=== PATIENT | male | born 1955 | race Caucasian/White ===

== ENCOUNTER 2016-05-06 20:30 | Inpatient (IN) | payer OTHER, MEDICAID ==
[2016-05-06] MEDS ORDERED: NS 500 ML IV ONE (20:43)
[2016-05-06] MEDS ORDERED: cefTRIAXone 2 GM in D5W 50 ML IV ONE (21:10)
[2016-05-06] MEDS ORDERED: AZITHROMYCIN IV 500 MG in D5W 250 ML IV ONE (21:10)
[2016-05-06 21:12] LABS: ADD DIFF? NO; ADD MORPH? NO; ADD SCAN? NO; ATYPICAL LYMPHOCYTE FLAG 0 (0-99); FRAGMENT RBC FLAG 0 (0-99); HEMATOCRIT 49.5 % (40.0-51.0); HEMOGLOBIN 16.3 g/dL (13.7-17.5); LEFT SHIFT FLG 20 (0-99); LIPEMIA HEMOLYSIS FLAG 80 (0-99); MEAN CELL HEMOGLOBIN 27.2 pg (27.9-34.1); MEAN CELL HEMOGLOBIN CONCENTR. 32.9 g/dL (32.4-36.7); MEAN CELL VOLUME 82.5 fL (81.5-99.8); MEAN PLATELET VOLUME 10.8 fL (8.7-11.7); PLATELET CLUMPS FLAG 10 (0-99); PLATELET COUNT 221 10^3/uL (150-400); RED CELL DISTRIBUTION WIDTH 15.4 % (11.5-15.2)
[2016-05-06] MEDS ORDERED: VANCOMYCIN 1.5 GM in D5W 250 ML IV ONE (21:15)
[2016-05-06] MEDS ORDERED: CEFEPIME HCL 2 GM in D5W 100 ML IV ONE (21:15)
[2016-05-06] MEDS ORDERED: NS 1,000 ML BAG *FOR SEPSIS ORDER SET ONLY IV ONE (21:17)
[2016-05-06] MEDS ORDERED: ACETAMINOPHEN 500 MG TAB PO ONE (21:22)
--- NOTE | 2016-05-06 21:25 | DX ---
PA and lateral chest. May 06, 2016. Clinical History: Possible pneumonia. Difficulty breathing. Comparison Study: April 15, 2015.. Findings: The lungs are clear. No pleural disease identified. Heart size is normal. The lateral radiograph is technically limited secondary to patient motion blurring.. Impression: Negative chest x-ray..
[2016-05-06] MEDS ORDERED: IPRATROPIUM/ALBUTEROL 3 ML DEYVIAL ONE (21:26)
[2016-05-06] MEDS ORDERED: IPRATROPIUM/ALBUTEROL 3 ML DEYVIAL IH ONE ×2 (21:27→21:31)
--- NOTE | 2016-05-06 21:27 | EDPHY ---
H & P Time Seen by Provider: 05/06/16 20:42 HPI/ROS: HPI Fever, cough. 61-year-old male by ambulance from [facility]. This patient presents with complaint of rapid breathing, worsening cough and fever. The patient was admitted to our hospital on April 13 through April 16 with the same symptoms and with a primary final diagnosis of severe sepsis but no obvious infectious source. He was treated with meropenem and vancomycin at that time. He reports that his cough has continued but over the last 24-48 hours it has worsened significantly and he has developed a high fever as well. ROS: Constitutional: As above. Eyes: No discharge. No changes in vision. ENT: No sore throat. No nasal congestion or rhinorrhea. Respiratory: As above. Cardiac: No chest pain, no palpitations. Gastrointestinal: No abdominal pain, no vomiting, no diarrhea. Genitourinary: No hematuria. No dysuria or increased frequency with urination. Musculoskeletal: No back pain. No neck pain. No myalgias or arthralgias. Skin: No rashes. Neurological: No headache. No new focal weakness or altered sensation. Past medical history: Traumatic brain injury with seizure, chronic hypoxemic respiratory failure on oxygen 3-4 L nasal cannula 02/11, COPD, coronary artery disease, CHF, DVT and PE, diabetes, recurrent aspiration pneumonias. Social history: From [facility]. As above. Physical Exam: General Appearance: Alert, tachypneic, wet cough. This patient is responding to questions short sentences. This patient appears well-hydrated and well- nourished. Eyes: Pupils equal and round no pallor or injection. No lid edema, erythema or injection. ENT, Mouth: Mucous membranes are moist. The pharyngeal tissues are unremarkable. No edema or swelling. No asymmetry suggestive of abscess. No erythema or exudates. Respiratory: There are no retractions, diffuse wheezing and rhonchi throughout , tachypnea. Cardiovascular: Regular rate and rhythm. Tachycardia. No murmur appreciated. Gastrointestinal: Abdomen is soft and nontender, no masses, bowel sounds normal. No focal tenderness at McBurney's point. No Squires sign. Neurological: Motor sensory function is grossly intact. Cranial nerves are normal. Skin: Warm and dry. Patient has erythema with warmth medial and proximal posterior left thigh which tracks up into the gluteal fold. He has got a small amount of skin breakdown medial aspect of mid gluteal fold. No crepitus. No gangrene. Musculoskeletal: Neck is supple and nontender. No pain on flexion of the neck. Extremities are symmetrical. Trace symmetrical lower extremity edema. All joints range without pain or impingement. Psychiatric: No agitation. No depression. Database: EKG: EKG time is 11:11 p.m.; EKG shows a narrow complex normal sinus sinus tachycardia ventricular rate of 120. PVC noted. The IL, QRS, QT intervals are within normal limits. Nonspecific T-wave abnormalities noted. There are no ST-T wave changes indicative of ischemic or injury pattern. No evidence of right heart strain. Interpreted by me. Imaging: Chest x-ray PA and lateral; the cardiac mediastinal silhouette is unremarkable. No evidence of infiltrate or pneumothorax. No acute cardiopulmonary disease process noted. Interpreted by me. Chest x-ray AP portable; right internal jugular vein central line appropriately placed. No pneumothorax. As above. Procedures: Ultrasound guidance: Using the linear probe covered in a sterile sheath, a short axis of the vein was obtained. The vein was completely compressible and was identified as separate from the adjacent non-compressible arterial structure. Under real-time guidance, the introducer needle was observed up to the vein, and then punctured it. These images were saved on the database. Central line placement: The indication for the procedure was septic shock. After verbal informed consent from patient; the risks were explained including bleeding, infection, and collapsed lung. Maximal sterile barrier technique was uses including cap, gown, sterile gloves, large sheet, hand washing and chlorhexidine prep. The area anesthetized with 1% lidocaine. The right internal jugular vein was punctured with a 19 gauge finder needle, then a wire introducer was placed, a standard triple-lumen central line was placed using Seldinger technique. There were no complications. Blood return low pressure, dark blood. The patient tolerated procedure well. CXR results: As above, interpreted by myself. Radiologist interpretation is pending. The procedure was performed by myself. Emergency department course: IV placed x2, patient started on IV normal saline with 1 L initially to be given over the 1st hour. Chest x-ray and appropriate blood work cultures and urine obtained. Patient started on albuterol/Atrovent nebulizer treatments. He was given 1 g of oral Tylenol and 125 mg of IV Solu-Medrol initially. After initial review of blood work, severe sepsis and septic shock declared as noted. Sepsis protocol initiated. Reviewed antibiotics from last admission with hospitalist, Dr. Jeffery Adhikari. Patient given IV cefepime and IV vancomycin in the emergency department for broad-spectrum antibiotic coverage of possible pathogens associated with pneumonia and cellulitis. Despite IV fluids patient has remained tachycardic in the 130s. However his blood pressure is high remained normal to mildly hypertensive. 10:20 p.m., patient re-evaluated. Patient remains tachycardic in the mid 130s. Blood pressures remain in the mid 130s over 80s. 10:25 p.m., discussed case with hospitalist, Dr. Tosha Sood. She is familiar with this patient from his previous admission. She has accepted the patient for admission to the step-down unit. She will repeat basic metabolic panel after IV fluids to assess potassium and treat as needed. IV antibiotics as above were discussed with her. She is in agreement. 11 PM, on Dr. Sood's exam patient's blood pressure has decreased into the 80s over 60s. She discussed central line placement with me. Central line placed as above. Aggressive resuscitation continued. 12 AM, patient looks better, tachycardia decreased to 110, blood pressure 108/ 72. Patient admitted to the ICU under the care of Dr. Sood in stable and improved condition. Differential Diagnosis: The differential diagnosis on this patient includes but is not limited to cellulitis, septic shock, pneumonia, bronchitis, influenza, COPD exacerbation. This represents a partial list of diagnoses considered. These considerations are based on history, physical exam, past history, reassessment and diagnostic testing. Smoking Status: Light smoker Constitutional: Initial Vital Signs Temperature (C) 39.5 C H 05/06/16 20:39 Heart Rate 138 H 05/06/16 20:39 Respiratory Rate 28 H 05/06/16 20:39 Blood Pressure 135/87 H 05/06/16 20:39 O2 Sat (%) 88 L 05/06/16 20:39 O2 Delivery Mode Oxymizer O2 (L/minute) 6 Allergies/Adverse Reactions: levofloxacin [From Levaquin] Allergy (Verified 03/05/15 16:09) Other-Enter Comments penicillin Allergy (Verified 03/08/15 12:08) Home Medications: Medication Instructions Recorded Acetaminophen [Tylenol 325mg (*)] 650 mg PO Q6 PRN 11/25/14 Atorvastatin Calcium 10 mg PO HS 11/25/14 Gabapentin [Neurontin 300 MG (*)] 300 mg PO TID@08,12,18 11/25/14 Herbals/Supplements -Info Only 1 ea PO BID 11/25/14 Magnesium Hydroxide [Milk of 30 ml PO DAILY PRN 11/25/14 Magnesia (*)] [place]-3 Fatty Acids/Fish Oil [Fish 1 cap PO DAILY 11/25/14 Oil 1,000 mg Capsule] Sennosides/Docusate Sodium 1 each PO BID 11/25/14 [Senna-Docusate Sodium Tablet] Warfarin Sodium [Coumadin 5MG (*)] 12.5 mg PO HS 11/25/14 glipiZIDE XL [Glucotrol XL 10 MG 10 mg PO DAILY 11/25/14 (*)] metFORMIN HCL [Glucophage 500 mg 500 mg PO BIDMEAL 11/25/14 (*)] Aspirin EC [Aspirin EC 81 mg (*)] 81 mg PO DAILY #30 tab 12/07/14 Ticagrelor [Brilinta] 90 mg PO BID #60 tablet 12/07/14 Albuterol [Proventil Neb] 3 ml IH Q4 PRN 01/08/15 Lorazepam [Lorazepam Intensol] 0.5 mg PO Q6 PRN 01/08/15 Metoprolol Succinate Xr [Toprol Xl 25 mg PO DAILY 01/08/15 25 mg (*)] Trolamine Salicylate/Aloe Vera 1 yanick TP QID 01/08/15 [Aspercreme 10% Cream] glipiZIDE XL [Glucotrol Xl] 5 mg PO DAILY 01/08/15 Insulin Glargine [Lantus 100 10 units SC DAILY 30 Days 01/20/15 UNITS/ML (*)] OXcarbazepine [Trileptal 300mg (*)] 600 mg PO BID #0 tab 01/20/15 Psyllium Seed [Metamucil (*)] 1 each PO DAILY 30 Days 01/20/15 Cyanocobalamin [Vitamin B12 (*)] 1,000 mcg PO DAILY 01/21/15 Oxymetazoline HCl [Afrin] 2 sprays EACHNARE DAILY PRN 01/21/15 Potassium Cl [Klor-Con 20 meq (*)] 20 meq PO DAILY 03/05/15 Albuterol [Proventil Neb] 3 ml IH QID 04/13/15 Lanolin/Min Oil/Petrolat,Wht [Eye 1 yanick EACHEYE TID@09,12,21 04/13/15 Lubricant Ointment] Lorazepam [Lorazepam Intensol] 0.5 mg PO BID 04/13/15 Mirtazapine [Remeron] 15 mg PO HS 04/13/15 Lisinopril 2.5 mg PO DAILY20 #0 tablet 04/16/15 Medical Decision Making Critical Care Time: I spent a total of 42 minutes of critical care time in obtaining history, performing a physical exam, bedside monitoring of interventions, collecting and interpreting tests and discussion with consultants but not including time spent performing procedures. - Data Points Laboratory Results: Laboratory Results 05/06/16 21:00 05/06/16 21:00 05/06/16 21:00 Hemoglobin A1c 6.3 H % (4.0-6.0) Estim Average Glucose 134 H mg/dL (68-126) Microbiology Results: MICROBIOLOGY 05/06/16 21:00 Blood Blood Culture - Preliminary Gram Positive Cocci Chains Medications Given: Discontinued Medications Acetaminophen (Tylenol) 1,000 mg PO EDNOW ONE Stop: 05/06/16 21:23 Last Admin: 05/06/16 21:49 Dose: 1,000 mg Albuterol/Ipratropium (Duoneb) 3 ml IH EDNOW ONE Stop: 05/06/16 21:28 Last Admin: 05/06/16 21:50 Dose: 3 ml Albuterol/Ipratropium (Duoneb) 3 ml IH EDNOW ONE Stop: 05/06/16 21:32 Last Admin: 05/06/16 21:50 Dose: 3 ml Sodium Chloride (Ns) 500 mls @ 0 mls/hr IV ONCE ONE PRN Reason: Wide Open Stop: 05/06/16 20:44 Last Admin: 05/06/16 21:13 Dose: 500 mls Azithromycin 500 mg/ Dextrose 255 mls @ 255 mls/hr IV EDNOW ONE PRN Reason: Protocol Stop: 05/06/16 22:09 Last Admin: 05/07/16 00:55 Dose: Not Given Ceftriaxone Sodium 2 gm/ (Dextrose) 50 mls @ 100 mls/hr IV EDNOW ONE PRN Reason: Protocol Stop: 05/06/16 21:39 Last Admin: 05/07/16 00:55 Dose: Not Given Cefepime HCl 2 gm/ Dextrose 100 mls @ 200 mls/hr IV EDNOW ONE PRN Reason: Protocol Stop: 05/06/16 21:44 Last Admin: 05/06/16 22:04 Dose: 100 mls Vancomycin HCl 1.5 gm/ (Dextrose) 250 mls @ 166.67 mls/hr IV EDNOW ONE PRN Reason: Protocol Stop: 05/06/16 22:44 Last Admin: 05/06/16 22:04 Dose: 250 mls Magnesium Sulfate/Dextrose (Magnesium Sulf 1 Gm (Premix)) 100 mls @ 100 mls/hr IV ONCE ONE Stop: 05/07/16 08:14 Last Admin: 05/07/16 07:59 Dose: 100 mls Methylprednisolone Sodium Succinate (Solu-Medrol) 125 mg IVP EDNOW ONE Stop: 05/06/16 21:32 Last Admin: 05/06/16 22:04 Dose: 125 mg Sodium Chloride (Ns *For Sepsis Order Set Only*) 2,558 ml IV EDNOW ONE Stop: 05/06/16 21:18 Last Admin: 05/06/16 21:49 Dose: 2,558 ml Departure - Departure Disposition: [facility] Inpatient Acute Clinical Impression: COPD exacerbation, Pneumonia, Severe sepsis, Tachycardia, Septic shock, Cellulitis of left thigh
[2016-05-06 21:30] LABS: ANION GAP 14 mEq/L (8-16); CALCIUM 8.9 mg/dL (8.5-10.4); CARBON DIOXIDE 27 mEq/l (22-31); CHLORIDE 91 mEq/L (97-110); CREATININE 0.7 mg/dL (0.7-1.3); GLOMERULAR FILTRATION RATE > 60; GLUCOSE 193 mg/dL (70-100); POTASSIUM 5.6 mEq/L (3.5-5.2); SODIUM 132 mEq/L (134-144)
[2016-05-06] MEDS ORDERED: methylPREDNISolone SOD SUCC 125 MG/2 ML VIAL IVP ONE (21:31)
[2016-05-06 22:08] LABS: LACGHOST ORDER
[2016-05-06] MEDS ORDERED: HYDROmorphONE/DILAUDID 1 MG/ML SYR IVP PRN (22:50)
[2016-05-06] MEDS ORDERED: ACETAMINOPHEN 650 MG SUPP PR PRN (22:50)
[2016-05-06] MEDS ORDERED: ONDANSETRON 4 MG/2 ML VIAL IVP PRN (22:50)
[2016-05-06] MEDS ORDERED: NOREPINEPHRINE BITARTRATE 4 MG in D5W 500 ML IV SCH (23:00)
[2016-05-06] MEDS ORDERED: VASOPRESSIN/DEXTROSE 250 ML IV SCH (23:00)
[2016-05-06] MEDS ORDERED: PHENYLEPHRINE HCL 50 MG in D5W 250 ML IV SCH (23:00)
[2016-05-06] MEDS ORDERED: HYDROCORTISONE 100 MG/2 ML VIAL IVP SCH (23:00)
[2016-05-06] MEDS ORDERED: DOBUTamine/DEXTROSE 250 ML IV SCH (23:00)
[2016-05-06 23:06] LABS: COLOR AMBER; LEUKOCYTE ESTERASE,URINE NEGATIVE (NEGATIVE); NITRITE,URINE NEGATIVE (NEGATIVE)
[2016-05-06 23:12] LABS: AMORPHOUS PRESENT /hpf (NONE-1+); BACTERIA 1+ /hpf (NONE SEEN); MUCUS 1+ /lpf (NONE-1+)
[2016-05-06] MEDS ORDERED: IOPAMIDOL (ISOVUE-300) 100 ML BTL IV ONE (23:12)
[2016-05-06] MEDS ORDERED: D50W 25 GM/50 ML SYR IVP PRN (23:13)
--- NOTE | 2016-05-06 23:13 | CPEKG ---
Heart Rate: 120 RR Interval: 500 P-R Interval: 156 QRSD Interval: 90 QT Interval: 320 QTC Interval: 453 P Matthews: 83 QRS Matthews: 6 T Wave Matthews: 138 EKG Severity - ABNORMAL ECG - EKG Impression: SINUS TACHYCARDIA EKG Impression: VENTRICULAR PREMATURE COMPLEX EKG Impression: PROBABLE LEFT ATRIAL ABNORMALITY EKG Impression: NONSPECIFIC T ABNORMALITIES, LATERAL LEADS Electronically Signed By: Opal Han 07-May-2016 00:34:24
[2016-05-06] MEDS ORDERED: ALBUTEROL 3 ML DEYVIAL IH PRN (23:23)
--- NOTE | 2016-05-07 00:10 | DX ---
Portable AP chest. May 07, 2016at 2358 History: Central line placement Findings: There is been placement of a right jugular central catheter from 3 hours 30 minutes earlier , terminating at the atrial caval junction, without pneumothorax. Lungs remain clear. Heart size is stable. Impression: Right-sided jugular central catheter without complication.
--- NOTE | 2016-05-07 00:25 | GHP ---
[f rep st] HISTORY AND PHYSICAL DATE OF ADMISSION: 05/06/2016 CHIEF COMPLAINT: Fever and difficulty breathing. HISTORY OF PRESENT ILLNESS: This patient is a 61-year-old male with a complex medical history including traumatic brain injury, seizure disorder, COPD, chronic respiratory failure, and coronary artery disease, who presents to the emergency department from his assisted living facility at [place], complaining of difficulty breathing. He was recently admitted earlier this month with a sepsis picture, though a source was not identified. He did have negative blood cultures at that time. He is overall a poor historian with decreased mentation and history of traumatic brain injury, and all he is able to tell me is that he is having trouble breathing. He denies headache, vision changes, or chest pain. He does endorse shortness of breath. He is requiring 8 L/min of oxygen in the emergency department. He endorses vague abdominal pain. Denies nausea, vomiting, or diarrhea. He denies dysuria, frequency, or urgency. He states he has poor mobility, particularly poor function of his left lower extremity. Upon arrival to the emergency department, he is febrile with a temperature of 39.5, blood pressure is 135/87, he is tachypneic with a respiratory rate of 28 to 30, and he is hypoxemic, satting in the 80s on room air. He received a 30 cc /kg fluid bolus in the emergency department, and his blood pressure proceeded to drop to the 80s over 60s. I have requested placement of a central line in the emergency department. The patient will be started on broad-spectrum antibiotics and admitted to the ICU, as he will likely need pressor support. PAST MEDICAL HISTORY: 1. Chronic respiratory failure. 2. COPD. 3. Traumatic brain injury with subsequent seizure disorder. 4. Tobacco abuse. 5. Diabetes mellitus. 6. History of C difficile. 7. Coronary artery disease with LAD stent placed in November 2014. 8. Hypertension. 9. Hyperlipidemia. 10. Obesity. 11. Ischemic cardiomyopathy with a recent ejection fraction of 50%. Note this was an improvement from a prior EF of 15%. 12. History of chronic aspiration. 13. Chronic low back pain. 14. History of DVT and PE. 15. Chronic anticoagulation. SURGICAL HISTORY: The patient is unable to provide this information. MEDICATIONS: Please see [employer] for complete updated outpatient medication list. ALLERGIES: Levofloxacin, and penicillin. SOCIAL HISTORY: The patient lives at [facility]. He is a daily smoker. He denies alcohol or drug use. FAMILY HISTORY: Positive for mother with COPD. REVIEW OF SYSTEMS: A 10-point Review of Systems was performed and is negative except as per HPI. OBJECTIVE: VITAL SIGNS: Upon arrival to the emergency department, temperature was 39.5, blood pressure 135/87, heart rate 138, respiratory rate 28. He was 88 % on room air. Repeat blood pressure after fluid bolus was 80/50. GENERAL: The patient is awake, alert, oriented to person only. HEENT: Head is atraumatic and normocephalic. Pupils equal, round, react to light. Extraocular muscles intact. Oropharynx is clear. Mucous membranes are dry. NECK: Supple. There is no JVD. HEART: Regular rate and rhythm. LUNGS: Decreased air exchange with diffuse expiratory wheezes. No crackles are detected. ABDOMEN: Soft, obese, nondistended, nontender. Normoactive bowel tones are present. EXTREMITIES: He has erythema of the posterior left lower extremity, which is most localized to the proximal posterior left leg and extends into the gluteal fold, and distally into the calf region. He has decreased range of motion. SKIN: He has bilateral gluteal pressure injury with skin breakdown noted. There was no purulence or drainage, though he does have fecal matter near his wounds. Chest x-ray in the emergency department is negative for pneumonia, pleural effusion, or evidence of edema. EKG shows sinus tachycardia with nonspecific T abnormalities in the lateral leads, which is slightly changed from prior, though may be rate-related. ASSESSMENT AND PLAN: The patient is a 61-year-old male with a history of traumatic brain injury, seizure disorder, chronic obstructive pulmonary disease , and chronic respiratory failure. He presents to the emergency department with fever, hypoxemia, tachypnea, and evidence of severe sepsis. 1. Septic shock, suspected secondary to a skin source. He presents febrile with a temperature of 39.5, tachycardic, with significantly elevated white blood cell count of 28.6, and a lactate of 4.2. This was initially thought to be a respiratory source, though his chest x-ray is clear. Further examination reveals left lower extremity cellulitis. There is significant discoloration, as well as pressure injury in his gluteal region. I am going to obtain a pelvis CT with imaging into the proximal left lower extremity to rule out any abscess or fluid collection. He received 30 cc/kg bolus in the emergency department. He will be started on broad-spectrum antibiotics. I am going to give him vancomycin and meropenem. He does have a penicillin allergy but tolerated meropenem previously. I have requested a central line placement in the emergency department, as the patient dropped his blood pressure to 80/50 after his initial fluid bolus. Pressors are ordered per protocol and will proceed with IV hydrocortisone should he require a second pressor. Will monitor his CVP and mixed venous O2. Continue volume resuscitation. Infectious Disease consult is requested for the morning to assist in management. Blood cultures are pending. I have also requested a wound care consult for further management of his pressure injury, which may be his source of sepsis. Will trend his lactate and white blood cell count. 2. Chronic hypoxemic respiratory failure secondary to chronic obstructive pulmonary disease. He does have diffuse wheezing on arrival and is significantly hypoxemic, although this may be in the setting of decreased tissue perfusion due to his sepsis. He did receive 125 mg of IV Solu-Medrol in the emergency department, and he may require stress-dose steroids, so will defer further Solu-Medrol dosing until tomorrow. Q.4 hours DuoNebs and p.r.n. albuterol nebs are ordered, and he is receiving supplemental oxygen via face mask. I am keeping the patient n.p.o. for now until his mentation improves and he is cleared by Speech. Speech swallow eval is ordered. 3. Hyperkalemia. He may have been hemoconcentrated on arrival. I am going to recheck a stat BMP at this time, and if his potassium persists elevated after IV fluid resuscitation, will proceed with potassium-lowering interventions, likely including insulin, dextrose, and Kayexalate if he is able to take p.o. 4. History of chronic aspiration. I reviewed Speech Therapy notes from his recent hospitalization 2 weeks ago, at which time he was a low aspiration risk; however, given his altered mentation as above, he will be kept n.p.o. until a swallow eval is performed. 5. Acute encephalopathy. This is likely toxic in nature given his acute infectious presentation. 6. Elevated troponin. I suspect this is strain in the setting of septic shock. He does have a history of coronary artery disease with a prior stent placement. Once he is cleared to take p.o., will continue his aspirin, statin, and Ticagrelor. 7. Hypertension. Due to his hypotension upon arrival, I am going to hold his antihypertensive, and these can be resumed as indicated when his acute infection resolves. 8. History of deep venous thrombosis/pulmonary embolus. The patient is chronically anticoagulated on Coumadin. Per review of his records from [place], he has recently been therapeutic. I have ordered a stat INR and will ask Pharmacy to dose Coumadin, assuming he is cleared for p.o. by tomorrow. If not, he may need a Lovenox bridge. 9. Hyponatremia. I suspect this is hypovolemic hyponatremia. He has received normal saline and will continue this and recheck his sodium level in the morning. 10. Diabetes mellitus. His blood sugar on presentation is 193. We will give him q.6 hour dose-adjusted regular insulin while he is n.p.o. and transition him to his home insulin dosing after his medication reconciliation is completed. I will also add on an A1c to assess his overall glycemic control. 11. Traumatic brain injury with associated seizure disorder. Will resume his Trileptal and gabapentin once he is cleared to take p.o. 12. Deep venous thrombosis prophylaxis. Assuming his INR returns in therapeutic range and he is adequately anticoagulated, will defer Lovenox. 13. Code status. I reviewed the patient's MOLST form. Upon admission, he is [id number] with selective treatments, and antibiotics are okay. 14. Disposition: Patient admitted to inpatient status and will likely require greater than 48 hours hospitalization for ongoing management of his septic shock. /[id number]/MODL MTDD
[2016-05-07] MEDS: INSULIN REGULAR HUMAN 100 UNIT/ML SC SCH ×5 (01:32→22:54)
[2016-05-07] MEDS: IPRATROPIUM/ALBUTEROL 3 ML DEYVIAL IH SCH ×7 (01:32→23:15)
[2016-05-07 02:07] LABS: MIXED VENOUS O2 SATURATION 79 % (65-75)
[2016-05-07 02:16] LABS: INR 1.75 (0.83-1.16); PROTIME(PATIENT) 20.5 SEC (12.0-15.0)
[2016-05-07 02:17] LABS: ALANINE AMINOTRANSFERASE 25 IU/L (21-72); ALBUMIN 2.8 g/dL (3.5-5.0); ALKALINE PHOSPHATASE 66 IU/L (38-126); ANION GAP 11 mEq/L (8-16); ASPARTATE AMINOTRANSFERASE 21 IU/L (17-59); BILIRUBIN,TOTAL 0.7 mg/dL (0.1-1.4); BILIRUBIN-CONJUGATED 0.2 mg/dL (0.0-0.5); BILIRUBIN-UNCONJUGATED 0.5 mg/dL (0.0-1.1); CALCIUM 7.6 mg/dL (8.5-10.4); CARBON DIOXIDE 24 mEq/l (22-31); CHLORIDE 98 mEq/L (97-110); CREATININE 0.7 mg/dL (0.7-1.3); GLOMERULAR FILTRATION RATE > 60; GLUCOSE 226 mg/dL (70-100); MAGNESIUM 1.5 mg/dL (1.6-2.3); POTASSIUM 4.9 mEq/L (3.5-5.2); SODIUM 133 mEq/L (134-144); TOTAL PROTEIN 5.5 g/dL (6.3-8.2)
[2016-05-07] MEDS ORDERED: PROTOCOL MAGNESIUM 1 DOSE IV PRN (03:22)
[2016-05-07 05:42] LABS: MIXED VENOUS O2 SATURATION 81 % (65-75)
[2016-05-07 05:43] LABS: ADD DIFF? YES; ADD MORPH? NO; ADD SCAN? NO; ATYPICAL LYMPHOCYTE FLAG 0 (0-99); FRAGMENT RBC FLAG 0 (0-99); HEMATOCRIT 42.2 % (40.0-51.0); LEFT SHIFT FLG 60 (0-99); LIPEMIA HEMOLYSIS FLAG 80 (0-99); MEAN CELL HEMOGLOBIN 27.8 pg (27.9-34.1); MEAN CELL HEMOGLOBIN CONCENTR. 33.2 g/dL (32.4-36.7); MEAN CELL VOLUME 83.9 fL (81.5-99.8); MEAN PLATELET VOLUME 9.8 fL (8.7-11.7); PLATELET CLUMPS FLAG 0 (0-99); PLATELET COUNT 171 10^3/uL (150-400); RED BLOOD CELL COUNT 5.03 10^6/uL (4.40-6.38)
[2016-05-07 05:52] LABS: INR 1.67 (0.83-1.16); PROTIME(PATIENT) 19.7 SEC (12.0-15.0)
[2016-05-07 06:00] LABS: ALANINE AMINOTRANSFERASE 27 IU/L (21-72); ALBUMIN 2.9 g/dL (3.5-5.0); ALKALINE PHOSPHATASE 64 IU/L (38-126); ANION GAP 10 mEq/L (8-16); ASPARTATE AMINOTRANSFERASE 20 IU/L (17-59); BILIRUBIN,TOTAL 0.5 mg/dL (0.1-1.4); CALCIUM 7.6 mg/dL (8.5-10.4); CARBON DIOXIDE 24 mEq/l (22-31); CHLORIDE 99 mEq/L (97-110); CREATININE 0.6 mg/dL (0.7-1.3); GLOMERULAR FILTRATION RATE > 60; GLUCOSE 266 mg/dL (70-100); MAGNESIUM 1.5 mg/dL (1.6-2.3); POTASSIUM 4.7 mEq/L (3.5-5.2); SODIUM 133 mEq/L (134-144); TOTAL PROTEIN 5.6 g/dL (6.3-8.2)
[2016-05-07 06:04] LABS: MICROCYTES 1+; PLATELET ESTIMATE ADEQUATE (ADEQ)
[2016-05-07 06:11] LABS: TROPONIN I 0.063 ng/mL (0-0.034)
[2016-05-07] MEDS ORDERED: MAGNESIUM SULF 1 GM/DEXTROSE 100 ML IV ONE (07:15)
[2016-05-07] MEDS: NS 1,000 ML IV SCH ×3 (07:34→22:54)
[2016-05-07] MEDS: FLUTICASONE/SALMETER 100/50MCG DISKUS IH SCH ×2 (09:31→21:08)
[2016-05-07] MEDS: methylPREDNISolone SOD SUCC 125 MG/2 ML VIAL IVP SCH ×3 (09:37→20:22)
[2016-05-07] MEDS: MEROPENEM 1 GM in NS 100 ML IV SCH ×2 (10:49→12:08)
[2016-05-07 10:51] LABS: HEMOGLOBIN A1C 6.3 % (4.0-6.0)
--- NOTE | 2016-05-07 11:35 | WOCRNPDOC ---
WOCRN Advanced Assessment Note - Skin Integrity Problem, Advanced Assess Bilateral Buttock Incont Assoc Dermatitis Dressing Type: Open to Air Exudate Amount: None Site Measurement - Head-to-Toe Length X Width X Depth (cm): 0.4x0.3x0.1 Skin Integrity Problem Comment: Very small partial thickness open wound on right buttock; a laceration/friction injury. No pressure injuries noted. Various areas of mild to moderate IAD along with friction/calloused areas to bilateral buttock from sliding in a sitting position. Groin and inner thighs red and inflamed. Will write for application of dimethicone cream BID to all areas. Does not look fungal. Wound care will not follow. Please reconsult prn.
--- NOTE | 2016-05-07 11:41 | CT ---
CT Pelvis With Contrast History: Sepsis, skin breakdown, evaluate for abscess/fluid collection. Comparison: CT abdomen and pelvis January 09, 2015. Technique: Axial unenhanced images were obtained through the pelvis following the uneventful intraven ous administration of 90 mL Isovue-300. Multiplanar reformations were performed. Dose reduction techn iques were utilized. Findings: No subcutaneous fluid collection or subcutaneous air is identified. Diverticulosis is noted in the sigmoid colon without evidence of diverticulitis. The visible bowel is normal caliber. There is no free fluid or air. A Wiggins is present in the bladder with air in the bladder likely related to instrumentation. Mild aneurysmal dilatation of the infrarenal abdominal aorta is unchanged, measuring 3.1 cm. Ectatic common iliac arteries are again noted. Mildly prominent iliac and inguinal lymph nod es are slightly increased in size, likely reactive, without pathologic enlargement. Prominent varicos ities overlies the left abdomen. The visible IVC and central common iliac veins are again noted to be small. Grade 1 spondylolytic spondylolisthesis of L5 on S1 stable . Impression: 1. No definite etiology for the patient's sepsis, with no visible abscess. 2. Stable mild aneurysmal dilatation of the infrarenal aorta. 3. Additional findings as above. Findings discussed with Dr. Robel Younger 05/07/2016 at 0044 hours. The preliminary and final reports were concordant.
--- NOTE | 2016-05-07 13:10 | HOSPPROG ---
Hospitalist Progress Note Assessment/Plan: # Septic shock- presumed secondary to skin sores- (tachycardic, white count 28 , elevated lactate above 4 and hypotension at presentation) weaned off pressors this morning treated with aggressive IV fluid resuscitation and empiric antibiotics - continue IV fluids and supportive care # Strep A bacteremia- PCR testing confirmed from admit blood culture- suspecting skin source with cellulitis of the left lower extremity - IV ceftriaxone - id consulting # acute left lower extremity cellulitis- continue IV cephalosporin # Acute on chronic hypoxic respiratory failure- presumed secondary to COPD exacerbation- oxygen saturations 98% on 3 L patient wheezing on examination this morning- chest x-ray( personally reviewed and interpreted) no infiltrates - IV Solu-Medrol - continue inhaled medications - RT # DM - [id number] - continue sliding scale insulin # coronary artery disease- patient presenting with indeterminate troponin- no chest pain complaints EKG without acute findings - continue home medications # traumatic brain injury- no chronic aspiration - speech therapy evaluation # diet diabetic if cleared by speech # prophylaxis Lovenox # disposition greater than 2 midnights as patient presenting with septic shock requiring aggressive IV fluids and pressor support Subjective: denies chest pain has appetite Objective: Vital Signs Temp Pulse Resp BP Pulse Ox 37.7 C 100 20 119/62 99 05/07/16 11:59 05/07/16 11:59 05/07/16 11:59 05/07/16 11:59 05/07/16 11:59 Laboratory Results 05/07/16 05:15 05/07/16 05:15 05/06/16 05/07/16 05/08/16 05:59 05:59 05:59 Intake Total 3000 Output Total 400 Balance 2600 PT 19.7 SEC (12.0-15.0) H 05/07/16 05:15 INR 1.67 (0.83-1.16) H 05/07/16 05:15 - Physical Exam Constitutional: appears nourished Eyes: anicteric sclera Ears, Nose, Mouth, Throat: moist mucous membranes Cardiovascular: regular rate and rhythym, systolic murmur Respiratory: no respiratory distress, expiratory wheeze Gastrointestinal: normoactive bowel sounds, soft, non-tender abdomen Genitourinary: no bladder fullness Skin: warm, normal color Musculoskeletal: No asymmetric calves Neurologic: No AAOx3 Psychiatric: No agitated Lymph, Heme, Immunologic: no cervical LAD ICD10 Worksheet Patient Problems: Problems Problem Status Diagnosed COPD exacerbation Acute Cellulitis of left thigh Acute Pneumonia Acute Septic shock Acute Severe sepsis Acute Tachycardia Acute Acute systolic CHF (congestive heart failure) Acute Aspiration pneumonia Acute CAD (coronary artery disease), [place] coronary artery Acute Chronic Disease Mgmt/Transitional Care Acute HCAP (healthcare-associated pneumonia) Acute Hospital-acquired pneumonia Acute Ischemic cardiomyopathy Acute Leukocytosis Acute Right lower lobe pneumonia Acute Sepsis Acute Severe sepsis without septic shock Acute
--- NOTE | 2016-05-07 14:13 | GCON ---
[f rep st] CONSULTATION PULMONARY CONSULT. DATE OF CONSULTATION: 05/07/2016 HISTORY OF PRESENT ILLNESS: The patient is a 61-year-old male with multiple medical problems, includ ing remote traumatic brain injury, seizure disorder, and COPD, who lives in an assisted living facili and had a recent admission with sepsis, though source was never identified as blood cultures were negative. In any case, he was admitted yesterday with shortness of breath and required 8 L/minute of oxygen and had hypotension with a fever of 39.5. He was found to have cellulitis on his left thigh and his blood pressure was low; and though he received 30 mL/kg of fluid bolus, his blood pressure re mained low and required pressors overnight. Those came off this morning. He said that he felt reasonably well today, better than yesterday. Denied any shortness of breath at this time. REVIEW OF SYSTEMS: Otherwise negative. PAST MEDICAL HISTORY: Includes: 1. COPD, on chronic oxygen. 2. Remote traumatic brain injury with seizure disorder. 3. Ongoing smoking. 4. Diabetes. 5. History of C difficile. 6. Coronary artery disease with a stent placed in 2014. 7. Hypertension. 8. Hyperlipidemia. 9. Obesity. 10. Ischemic cardiomyopathy with an ejection fraction of 50%. 11. Known chronic aspiration. 12. Chronic low back pain. 13. He has had a DVT and PE in the past and is chronically anticoagulated. SOCIAL HISTORY: He is an ongoing smoker. No alcohol or IV drug use. ALLERGIES: Include Levaquin and penicillin. FAMILY HISTORY: Includes mother with COPD. CURRENT MEDICATIONS: Include DuoNeb, ceftriaxone, Dilaudid, insulin, meropenem, Zofran, vasopressin, and warfarin. PHYSICAL EXAMINATION: VITAL SIGNS: Temperature currently 37.7, blood pressure 119/62 with a MAP of 77. Heart rate was 100. Oxygen saturation 99% on 1 L OxyMask. GENERAL: He was awake and alert and not in any distress. Able to speak in full sentences without using accessory muscles for breathing. HEENT: Pupils are equally round and reactive to light, nonicteric and noninjected. Mucous membran es are moist without erythema or exudate. NECK: Supple without adenopathy or jugular vein distentio n. LUNGS: Breath sounds reveal diffuse wheezing bilaterally but good air exchange. HEART: Regular rate and rhythm without murmurs, rubs, or gallops. ABDOMEN: Soft, nontender, and nondistended with out hepatosplenomegaly. EXTREMITIES: No clubbing, cyanosis, or edema, but he did have an extensive erythematous confluent rash that was quite warm to touch but not especially tender on his left latera l thigh. NEUROLOGIC: Nonfocal. LABORATORY STUDIES: Objective data includes a white count of 28 and is now 27.4, hematocrit 42, plat elets are 171. INR 1.6. Sodium is 133, potassium 4.7. The rest of his basic metabolic panel was unremarkable. LFTs were normal, excep t for total bilirubin 1.5. Troponin was 0.070, down to 0.063. BNP was 1600. Urinalysis was unremar kable. Flu DFA was negative. Blood cultures showed gram-positive cocci in chains in 1 bottle. Urin e culture was negative. Chest x-rays done twice yesterday showed no significant infiltrates. ASSESSMENT AND PLAN: 1. Septic shock with bacteremia. I suspect that cellulitis is the source for this. He has adequate coverage for now and appears to be getting better. He required pressors overnight but currently not taking them and seems to be doing quite well from a blood pressure perspective. He has adequate uri ne output, and his renal function appears to be normal. 2. Chronic obstructive pulmonary disease. I am not sure what his baseline is at this time, but he s aid that he uses Advair on a regular basis, which we started this morning. Because of the diffuse wh eezing, however, I will give him Solu-Medrol 60 mg IV q.6 hours for the next 24 hours and see how wel l that improves. If he fails to improve, we may need another chest x-ray. 3. Mild elevation in troponin, which is already coming down. I do not think this represents acute c oronary syndrome, and we will simply watch that. /[id number]/MODL
[2016-05-07] MEDS: NICOTINE 21 MG/24 HR PATCH TD SCH (14:30)
[2016-05-07] MEDS: WARFARIN SODIUM 5 MG TAB PO SCH (16:23)
[2016-05-07] MEDS: WARFARIN SODIUM 7.5 MG TAB PO SCH (16:23)
[2016-05-07] MEDS: WARFARIN SODIUM 1 MG TAB PO SCH (16:23)
[2016-05-07] MEDS ORDERED: MAGNESIUM HYDROXIDE 30 ML UDCUP PO PRN (17:10)
--- NOTE | 2016-05-07 20:14 | GCON ---
[f rep st] CONSULTATION INPATIENT INFECTIOUS DISEASE CONSULTATION REASON FOR CONSULTATION: Fever and bacteremia. HISTORY OF PRESENT ILLNESS: Patient is a 61-year-old male with a history of a closed head injury in the remote past, who normally lives at [facility]. He was brought in by ambulance on the evening of 05/06/2016 complaining of rapid breathing, worsening cough and fever. The patient interestingly had an [facility] 13 through April 16 with an ultimate diagnosis of sepsis, but no obvious infectious source. He was treated with a short course of meropenem and vancomycin at that time. Upon presentation in the emergency room, the patient was febrile to 39.5 degrees. His white blood cell count was elevated at 28.6 and he had a lactate of 4.2. His chest x-ray was clear so respiratory source was discounted. The examination revealed left lower extremity cellulitis. He also had a pelvic CT which was negative during this initial workup. He was started on vancomycin and meropenem empirically. He was admitted to the step-down unit. He required some pressor support overnight, but by this morning no pressors were necessary. He is currently resting in his hospital bed. He is fully conversant. He is at baseline which includes some odd behavior secondary to the remote closed head injury. PAST MEDICAL HISTORY: 1. Chronic respiratory failure. 2. COPD. 3. Traumatic brain injury and seizure disorder. 4. Diabetes mellitus. 5. History of Clostridium difficile. 6. Coronary artery disease. 7. Hypertension. 8. Hyperlipidemia. 9. Obesity. 10. Ischemic cardiomyopathy. 11. Chronic aspiration. 12. Deep venous thrombosis with pulmonary embolism. PAST SURGICAL HISTORY: Status post coronary stenting to the LAD in November of 2014. ANTIBIOTICS: 1. Cefepime. 2. Azithromycin. 3. Vancomycin. ALLERGIES: Patient is allergic to levofloxacin and penicillin. SOCIAL HISTORY: The patient currently resides at a longterm facility. He is a current tobacco user. Denies alcohol or drug use. FAMILY HISTORY: Reviewed but noncontributory. REVIEW OF SYSTEMS: Other than that detailed above in history of present illness , a comprehensive 10-system review is negative. PHYSICAL EXAMINATION: VITAL SIGNS: Temperature maximum is 39.5, temperature current is 36.9. Heart rate is 105, respiratory rate is 20, blood pressure is 109/64. GENERAL: The patient is a well formed, overweight, middle-aged male, in no acute distress. He is not toxic in appearance. He is alert and oriented x3. He is pleasant in demeanor but prone to odd verbal outbursts and comments. HEENT: Normocephalic for age. Atraumatic. No scleral icterus. No oral lesion. No drainage from the nares. EYES: Lids and conjunctivae within normal limits. Pupils are equal and round bilaterally. NECK: Supple without meningismus. LUNGS: Clear to auscultation bilaterally with good effort. HEART : Regular rate and rhythm. No murmur, rub, or gallop noted. No significant peripheral edema. ABDOMEN: Soft, nontender. No masses. SKIN: Warm and dry to the touch. No rash noted. Patient does have a confluent area of dusky erythema in the left lower extremity. No obvious significant traumatic skin breakdown. MUSCULOSKELETAL: No muscle tenderness is noted. No joint line effusion or arthritis is seen. NEURO: Cranial nerves 2-12 seem to be intact. Peripheral sensation seems intact in the extremities. LABORATORY DATA: Patient had a CBC dated 05/07/2016 that shows a white blood cell count of 27.5, hemoglobin of 14.0 hematocrit of 42.2, platelet count of 171 , differential is left-shifted with 65% segmented neutrophils and 31% band forms. Serum chemistries on 05/07/2016 show sodium 133, potassium 4.7, chloride of 99, bicarbonate of 24, BUN of 13, creatinine 0.6. AST is 20, ALT is 27. Influenza DFA is negative. Urinalysis on 05/06/2016 is not significantly abnormal. MICROBIOLOGIC DATA: Patient has blood cultures dated 05/06/2016, 1 out of 2 sets is growing group A strep. ASSESSMENT: Group A strep bacteremia secondary to left lower extremity cellulitis. The patient has been given empirically from last night to this morning. Vancomycin, meropenem, and cefepime. We will continue cephalosporin coverage but will use ceftriaxone 1 g IV q.24 hours. We will continue to watch the appearance of the left lower extremity erythema recede. Also repeat blood cultures in the morning. PLAN: 1. Start ceftriaxone 1 g IV a.24 hours. 2. Follow appearance of left lower extremity. 3. Redraw blood cultures in the morning. /[id number]/MODL MTDD
[2016-05-07] MEDS: ATORVASTATIN CALCIUM 10 MG TAB PO SCH (20:20)
[2016-05-07] MEDS: LORazepam 0.5 MG TAB PO SCH (20:20)
[2016-05-07] MEDS: OXcarbazepine 300 MG TAB PO SCH (20:21)
[2016-05-07] MEDS: MIRTAZAPINE 15 MG TAB PO SCH (20:21)
[2016-05-07] MEDS: SENNOSIDES/DOCUSATE SODIUM TAB PO SCH (20:22)
[2016-05-07] MEDS: GABAPENTIN 100 MG CAP PO SCH (20:22)
[2016-05-07] MEDS: PETROLAT,WHT/MIN OIL/SOD CHL 3.5 GM OPHT.OINT OP SCH (20:23)
[2016-05-07] MEDS ORDERED: MEROPENEM 1 GM in NS 100 ML IV SCH (23:01)
[2016-05-08] MEDS: TROLAMINE SALICYLATE 85 GM CRTUBE TP SCH ×4 (02:01→22:33)
[2016-05-08 04:37] LABS: HEMATOCRIT 38.2 % (40.0-51.0); HEMOGLOBIN 12.4 g/dL (13.7-17.5); MEAN CELL HEMOGLOBIN 26.9 pg (27.9-34.1); MEAN CELL HEMOGLOBIN CONCENTR. 32.5 g/dL (32.4-36.7); MEAN CELL VOLUME 82.9 fL (81.5-99.8); RED BLOOD CELL COUNT 4.61 10^6/uL (4.40-6.38); RED CELL DISTRIBUTION WIDTH 14.9 % (11.5-15.2)
[2016-05-08 04:47] LABS: ANION GAP 5 mEq/L (8-16); CALCIUM 7.9 mg/dL (8.5-10.4); CARBON DIOXIDE 27 mEq/l (22-31); CHLORIDE 104 mEq/L (97-110); CREATININE 0.5 mg/dL (0.7-1.3); GLOMERULAR FILTRATION RATE > 60; GLUCOSE 272 mg/dL (70-100); MAGNESIUM 2.1 mg/dL (1.6-2.3); POTASSIUM 4.9 mEq/L (3.5-5.2); SODIUM 136 mEq/L (134-144)
[2016-05-08 04:51] LABS: INR 1.72 (0.83-1.16); PROTIME(PATIENT) 20.2 SEC (12.0-15.0)
[2016-05-08] MEDS: IPRATROPIUM/ALBUTEROL 3 ML DEYVIAL IH SCH ×6 (04:51→19:36)
[2016-05-08] MEDS: methylPREDNISolone SOD SUCC 125 MG/2 ML VIAL IVP SCH ×2 (04:57→08:43)
[2016-05-08] MEDS: INSULIN REGULAR HUMAN 100 UNIT/ML SC SCH ×4 (05:14→22:21)
[2016-05-08] MEDS: NICOTINE 21 MG/24 HR PATCH TD SCH (08:40)
[2016-05-08] MEDS: LORazepam 0.5 MG TAB PO SCH ×2 (08:40→22:17)
[2016-05-08] MEDS: glipiZIDE XL 5 MG TAB PO SCH (08:40)
[2016-05-08] MEDS: METOPROLOL SUCCINATE XR 25 MG TAB PO SCH (08:40)
[2016-05-08] MEDS: OXcarbazepine 300 MG TAB PO SCH ×2 (08:40→22:17)
[2016-05-08] MEDS: CYANO/VITAMIN B12 1000 MCG TAB PO SCH (08:40)
[2016-05-08] MEDS: SENNOSIDES/DOCUSATE SODIUM TAB PO SCH ×2 (08:40→22:17)
[2016-05-08] MEDS: POTASSIUM CL 20 MEQ TAB PO SCH (08:41)
[2016-05-08] MEDS: GABAPENTIN 100 MG CAP PO SCH ×3 (08:41→22:20)
[2016-05-08] MEDS: ASPIRIN EC 81 MG TAB PO SCH (08:41)
[2016-05-08] MEDS: OMEGA-3 FATTY ACIDS 1,000 MG CAP PO SCH (08:41)
[2016-05-08] MEDS: PETROLAT,WHT/MIN OIL/SOD CHL 3.5 GM OPHT.OINT OP SCH ×3 (08:42→22:33)
[2016-05-08] MEDS: OXYMETAZOLINE 30 ML NASAL SPRAY EACHNARE SCH (08:51)
[2016-05-08] MEDS ORDERED: PSYLLIUM METAMUCIL 1 PKT PO PRN (09:00)
[2016-05-08] MEDS: INSULIN GLARGINE 100 UNITS/ML SYRINGE SC SCH (10:01)
[2016-05-08] MEDS ORDERED: IPRATROPIUM/ALBUTEROL 3 ML DEYVIAL IH PRN (10:04)
[2016-05-08] MEDS ORDERED: ACETAMINOPHEN 325 MG TAB PO PRN (10:04)
--- NOTE | 2016-05-08 11:37 | HOSPPROG ---
Hospitalist Progress Note Assessment/Plan: 61 yo M w TBI admitted w sepsis from cellulitis Septic shock- presumed secondary to skin sores- (tachycardic, white count 28, elevated lactate above 4 and hypotension at presentation) septic physiology has resolved Strep A bacteremia- PCR testing confirmed from admit blood culture- suspecting skin source with cellulitis of the left lower extremity - IV ceftriaxone - id consulting repeat cx now to prove clearance acute left lower extremity cellulitis- continue IV cephalosporin Acute on chronic hypoxic respiratory failure- presumed secondary to COPD exacerbation- oxygen saturations 98% on 3 L patient wheezing on examination this morning- chest x-ray( personally reviewed and interpreted) no infiltrates - IV Solu-Medrol - continue inhaled medications - RT DM - 190-266 - continue sliding scale insulin coronary artery disease- patient presenting with indeterminate troponin- no chest pain complaints EKG without acute findings - continue home medications traumatic brain injury- no chronic aspiration - speech therapy evaluation diet diabetic if cleared by speech prophylaxis Lovenox dispo: inpt Subjective: hungry, alert. no events tele (interp by me). case d/w dr schulz Objective: Vital Signs Temp Pulse Resp BP Pulse Ox 36.7 C 104 H 17 137/85 H 96 05/08/16 07:43 05/08/16 07:43 05/08/16 07:43 05/08/16 07:43 05/08/16 07:43 Laboratory Results 05/08/16 04:20 05/08/16 04:20 05/07/16 05/08/16 05/09/16 05:59 05:59 05:59 Intake Total 3000 4650 Output Total 400 1000 Balance 2600 3650 PT 20.2 SEC (12.0-15.0) H 05/08/16 04:20 INR 1.72 (0.83-1.16) H 05/08/16 04:20 - Physical Exam Constitutional: no apparent distress, appears nourished Eyes: PERRL, anicteric sclera Ears, Nose, Mouth, Throat: moist mucous membranes, hearing normal Cardiovascular: regular rate and rhythym, no murmur, rub, or gallop Respiratory: no respiratory distress, no rales or rhonchi Gastrointestinal: normoactive bowel sounds, soft, non-tender abdomen Genitourinary: No milian in urethra Skin: warm, other (erythema on L thigh, groin. decreased per reports but this is my first day seeing it) Musculoskeletal: No full muscle strength Neurologic: AAOx3 Psychiatric: interacting appropriately ICD10 Worksheet Patient Problems: Problems Problem Status Diagnosed COPD exacerbation Acute Cellulitis of left thigh Acute Pneumonia Acute Septic shock Acute Severe sepsis Acute Tachycardia Acute Acute systolic CHF (congestive heart failure) Acute Aspiration pneumonia Acute CAD (coronary artery disease), [place] coronary artery Acute Chronic Disease Mgmt/Transitional Care Acute HCAP (healthcare-associated pneumonia) Acute Hospital-acquired pneumonia Acute Ischemic cardiomyopathy Acute Leukocytosis Acute Right lower lobe pneumonia Acute Sepsis Acute Severe sepsis without septic shock Acute
--- NOTE | 2016-05-08 12:37 | PCMIDPN ---
Assessment/Plan: 1. Group a strep bacteremia likely secondary to left lower extremity skin and soft tissue infection: No evidence of necrotizing process or toxic shock syndrome. Risk factors for group a strep bacteremia include obesity and diabetes mellitus. Continue ceftriaxone given patient's penicillin allergy but will increase dose to 2 g IV daily. Repeat blood cultures today to document clearance. Do not feel that he needs imaging of his lower extremity at this point in time. He is clinically improving and white blood cell count decreasing. Subjective: is helping him eat. He is feeling better overall. No diarrhea, nausea or vomiting. No rigors. No antecedent sore throat. Objective: Ceftriaxone 1 g IV daily day 2 (status post meropenem) T-max 37degrees Vital Signs Temp Pulse Resp BP Pulse Ox 36.7 C 104 H 17 137/85 H 96 05/08/16 07:43 05/08/16 07:43 05/08/16 07:43 05/08/16 07:43 05/08/16 07:43 Laboratory Results 05/08/16 04:20 05/08/16 04:20 05/07/16 05/08/16 05/09/16 05:59 05:59 05:59 Intake Total 3000 4650 Output Total 400 1000 Balance 2600 3650 Blood culture May 06 x2 sets 1/ bottles with group a strep - Physical Exam General Appearance: no apparent distress, obese EENT: pharynx normal, No scleral icterus, No thrush Respiratory: lungs clear Neck: other (Patient has a right IJ triple-lumen catheter) Extremities: other (Left lower extremity notable for patches of blanching erythema lateral aspect of left hip. Patient also has some patches of erythema inner aspect of left thigh. No significant tenderness to palpation. No squeeze tenderness. No obvious breaks in the skin. Onychomycosis bilaterally.) Skin: other (Please see above regarding patchy erythema noted lateral aspect left hip and inner thigh), No rash ICD10 Worksheet Patient Problems: Problems Problem Status Diagnosed COPD exacerbation Acute Cellulitis of left thigh Acute Pneumonia Acute Septic shock Acute Severe sepsis Acute Tachycardia Acute Acute systolic CHF (congestive heart failure) Acute Aspiration pneumonia Acute CAD (coronary artery disease), [place] coronary artery Acute Chronic Disease Mgmt/Transitional Care Acute HCAP (healthcare-associated pneumonia) Acute Hospital-acquired pneumonia Acute Ischemic cardiomyopathy Acute Leukocytosis Acute Right lower lobe pneumonia Acute Sepsis Acute Severe sepsis without septic shock Acute
[2016-05-08] MEDS: FLUTICASONE/SALMETER 100/50MCG DISKUS IH SCH ×2 (12:40→19:36)
[2016-05-08] MEDS: WARFARIN SODIUM 1 MG TAB PO SCH (15:37)
[2016-05-08] MEDS: WARFARIN SODIUM 7.5 MG TAB PO SCH (15:37)
[2016-05-08] MEDS: WARFARIN SODIUM 5 MG TAB PO SCH (15:37)
[2016-05-08] MEDS ORDERED: WARFARIN SODIUM 5 MG TAB PO SCH (16:00)
[2016-05-08] MEDS: MIRTAZAPINE 15 MG TAB PO SCH (22:17)
[2016-05-08] MEDS: ATORVASTATIN CALCIUM 10 MG TAB PO SCH (22:20)
[2016-05-09] MEDS: IPRATROPIUM/ALBUTEROL 3 ML DEYVIAL IH SCH ×6 (00:20→20:27)
[2016-05-09 05:54] LABS: INR 2.61 (0.83-1.16); PROTIME(PATIENT) 28.2 SEC (12.0-15.0)
[2016-05-09 06:03] LABS: GLUCOSE 215 mg/dL (70-100); MAGNESIUM 1.9 mg/dL (1.6-2.3)
[2016-05-09] MEDS: TROLAMINE SALICYLATE 85 GM CRTUBE TP SCH ×4 (08:51→23:01)
[2016-05-09] MEDS: INSULIN REGULAR HUMAN 100 UNIT/ML SC SCH (08:52)
[2016-05-09] MEDS: FLUTICASONE/SALMETER 100/50MCG DISKUS IH SCH ×2 (09:01→20:31)
[2016-05-09] MEDS: glipiZIDE XL 5 MG TAB PO SCH (09:15)
[2016-05-09] MEDS: cefTRIAXone 2 GM in D5W 50 ML IV SCH (09:15)
[2016-05-09] MEDS: OMEGA-3 FATTY ACIDS 1,000 MG CAP PO SCH (09:15)
[2016-05-09] MEDS: OXcarbazepine 300 MG TAB PO SCH ×2 (09:15→22:08)
[2016-05-09] MEDS: GABAPENTIN 100 MG CAP PO SCH ×3 (09:16→22:00)
[2016-05-09] MEDS: ASPIRIN EC 81 MG TAB PO SCH (09:16)
[2016-05-09] MEDS: METOPROLOL SUCCINATE XR 25 MG TAB PO SCH (09:16)
[2016-05-09] MEDS: CYANO/VITAMIN B12 1000 MCG TAB PO SCH (09:16)
[2016-05-09] MEDS: NICOTINE 21 MG/24 HR PATCH TD SCH (09:18)
[2016-05-09] MEDS: LORazepam 0.5 MG TAB PO SCH ×2 (09:20→22:00)
[2016-05-09] MEDS: POTASSIUM CL 20 MEQ TAB PO SCH (10:10)
[2016-05-09] MEDS: SENNOSIDES/DOCUSATE SODIUM TAB PO SCH ×2 (10:10→21:59)
[2016-05-09] MEDS: PETROLAT,WHT/MIN OIL/SOD CHL 3.5 GM OPHT.OINT OP SCH ×3 (10:10→23:01)
[2016-05-09] MEDS: OXYMETAZOLINE 30 ML NASAL SPRAY EACHNARE SCH (10:10)
[2016-05-09] MEDS: INSULIN GLARGINE 100 UNITS/ML SYRINGE SC SCH (11:12)
[2016-05-09] MEDS: INSULIN REGULAR, HUMAN 100 UNIT/1 ML VIAL LOW SC SCH ×3 (13:07→22:06)
--- NOTE | 2016-05-09 13:15 | PCMIDPN ---
Assessment/Plan: 1. Group a strep bacteremia likely secondary to left lower extremity skin and soft tissue infection: Clinically improving on ceftriaxone. PICC line likely on Wednesday. Will need 2 weeks of therapy with ceftriaxone. No new recommendations at this point in time. 05/09/16 13:13 Subjective: Left leg erythema is better. Patient tells me I am hungry. Objective: Ceftriaxone 2 g IV daily day 3 Afebrile Vital Signs Temp Pulse Resp BP Pulse Ox 36.6 C 111 H 20 108/79 89 L 05/09/16 11:57 05/09/16 11:57 05/09/16 11:57 05/09/16 11:57 05/09/16 11:57 Microbiology 05/06/16 23:13 Urine Culture - Final Urine,Clean Catch Laboratory Results 05/08/16 04:20 05/09/16 05:20 05/08/16 05/09/16 05/10/16 05:59 05:59 05:59 Intake Total 4650 1040 Output Total 1000 625 Balance 3650 415 Blood culture May 06 group a strep May 08 blood culture pending - Physical Exam General Appearance: alert, no apparent distress Extremities: other (Left lower extremity: The patient's lateral hip area is notable for improvement in the blotchy patches of blanchable erythema. Much better compared with yesterday.) ICD10 Worksheet Patient Problems: Problems Problem Status Diagnosed COPD exacerbation Acute Cellulitis of left thigh Acute Pneumonia Acute Septic shock Acute Severe sepsis Acute Tachycardia Acute Acute systolic CHF (congestive heart failure) Acute Aspiration pneumonia Acute CAD (coronary artery disease), [place] coronary artery Acute Chronic Disease Mgmt/Transitional Care Acute HCAP (healthcare-associated pneumonia) Acute Hospital-acquired pneumonia Acute Ischemic cardiomyopathy Acute Leukocytosis Acute Right lower lobe pneumonia Acute Sepsis Acute Severe sepsis without septic shock Acute
--- NOTE | 2016-05-09 15:51 | HOSPPROG ---
Hospitalist Progress Note Assessment/Plan: 61 yo M w TBI admitted w sepsis from cellulitis Septic shock- presumed secondary to skin sores- (tachycardic, white count 28, elevated lactate above 4 and hypotension at presentation) septic physiology has resolved Strep A bacteremia- PCR testing confirmed from admit blood culture- suspecting skin source with cellulitis of the left lower extremity - IV ceftriaxone - id consulting repeat cx now to prove clearance acute left lower extremity cellulitis- continue IV cephalosporin Acute on chronic hypoxic respiratory failure- presumed secondary to COPD exacerbation- oxygen saturations 98% on 3 L patient wheezing on examination this morning- chest x-ray( personally reviewed and interpreted) no infiltrates - IV Solu-Medrol - continue inhaled medications - RT DM - 190-266 - continue sliding scale insulin coronary artery disease- patient presenting with indeterminate troponin- no chest pain complaints EKG without acute findings - continue home medications traumatic brain injury- no chronic aspiration - speech therapy evaluation diet diabetic if cleared by speech prophylaxis Lovenox dispo: inpt Subjective: repeat blood cx neg, afebrile Objective: Vital Signs Temp Pulse Resp BP Pulse Ox 36.6 C 111 H 20 108/79 89 L 05/09/16 11:57 05/09/16 11:57 05/09/16 11:57 05/09/16 11:57 05/09/16 11:57 Microbiology 05/06/16 23:13 Urine Culture - Final Urine,Clean Catch Laboratory Results 05/08/16 04:20 05/09/16 05:20 05/08/16 05/09/16 05/10/16 05:59 05:59 05:59 Intake Total 4650 1040 540 Output Total 1000 625 Balance 3650 415 540 PT 28.2 SEC (12.0-15.0) H D 05/09/16 05:20 INR 2.61 (0.83-1.16) H 05/09/16 05:20 - Physical Exam Constitutional: no apparent distress, appears nourished, not in pain Eyes: PERRL, anicteric sclera Ears, Nose, Mouth, Throat: moist mucous membranes, hearing normal Cardiovascular: regular rate and rhythym, no murmur, rub, or gallop Respiratory: no respiratory distress, no rales or rhonchi Gastrointestinal: normoactive bowel sounds, soft, non-tender abdomen Genitourinary: no bladder fullness, No milian in urethra Skin: other (decreased (much)erythema on L leg) ICD10 Worksheet Patient Problems: Problems Problem Status Diagnosed COPD exacerbation Acute Cellulitis of left thigh Acute Pneumonia Acute Septic shock Acute Severe sepsis Acute Tachycardia Acute Acute systolic CHF (congestive heart failure) Acute Aspiration pneumonia Acute CAD (coronary artery disease), [place] coronary artery Acute Chronic Disease Mgmt/Transitional Care Acute HCAP (healthcare-associated pneumonia) Acute Hospital-acquired pneumonia Acute Ischemic cardiomyopathy Acute Leukocytosis Acute Right lower lobe pneumonia Acute Sepsis Acute Severe sepsis without septic shock Acute
[2016-05-09] MEDS: WARFARIN SODIUM 1 MG TAB PO SCH (16:17)
[2016-05-09] MEDS: WARFARIN SODIUM 7.5 MG TAB PO SCH (16:17)
[2016-05-09] MEDS: WARFARIN SODIUM 5 MG TAB PO SCH (16:17)
[2016-05-09] MEDS: MIRTAZAPINE 15 MG TAB PO SCH (22:00)
[2016-05-09] MEDS: ATORVASTATIN CALCIUM 10 MG TAB PO SCH (22:00)
[2016-05-10 06:11] LABS: ADD DIFF? YES; ADD MORPH? NO; ADD SCAN? NO; ATYPICAL LYMPHOCYTE FLAG 30 (0-99); FRAGMENT RBC FLAG 0 (0-99); HEMATOCRIT 39.2 % (40.0-51.0); HEMOGLOBIN 12.9 g/dL (13.7-17.5); LEFT SHIFT FLG 20 (0-99); LIPEMIA HEMOLYSIS FLAG 80 (0-99); MEAN CELL HEMOGLOBIN 27.6 pg (27.9-34.1); MEAN CELL HEMOGLOBIN CONCENTR. 32.9 g/dL (32.4-36.7); MEAN CELL VOLUME 83.8 fL (81.5-99.8); MEAN PLATELET VOLUME 10.3 fL (8.7-11.7); PLATELET CLUMPS FLAG 0 (0-99); PLATELET COUNT 191 10^3/uL (150-400); RED BLOOD CELL COUNT 4.68 10^6/uL (4.40-6.38); RED CELL DISTRIBUTION WIDTH 15.4 % (11.5-15.2)
[2016-05-10 06:28] LABS: INR 3.15 (0.83-1.16); PROTIME(PATIENT) 32.8 SEC (12.0-15.0)
[2016-05-10 07:06] LABS: ALANINE AMINOTRANSFERASE 37 IU/L (21-72); ALBUMIN 2.5 g/dL (3.5-5.0); ALKALINE PHOSPHATASE 69 IU/L (38-126); ANION GAP 6 mEq/L (8-16); ASPARTATE AMINOTRANSFERASE 22 IU/L (17-59); BILIRUBIN,TOTAL 0.3 mg/dL (0.1-1.4); CALCIUM 7.8 mg/dL (8.5-10.4); CARBON DIOXIDE 30 mEq/l (22-31); CHLORIDE 101 mEq/L (97-110); CREATININE 0.5 mg/dL (0.7-1.3); GLOMERULAR FILTRATION RATE > 60; GLUCOSE 84 mg/dL (70-100); POTASSIUM 4.8 mEq/L (3.5-5.2); SODIUM 137 mEq/L (134-144); TOTAL PROTEIN 5.4 g/dL (6.3-8.2)
[2016-05-10] MEDS: OMEGA-3 FATTY ACIDS 1,000 MG CAP PO SCH (08:54)
[2016-05-10] MEDS: GABAPENTIN 100 MG CAP PO SCH ×3 (08:55→20:49)
[2016-05-10] MEDS: SENNOSIDES/DOCUSATE SODIUM TAB PO SCH ×2 (08:55→20:49)
[2016-05-10] MEDS: CYANO/VITAMIN B12 1000 MCG TAB PO SCH (08:55)
[2016-05-10] MEDS: ASPIRIN EC 81 MG TAB PO SCH (08:55)
[2016-05-10] MEDS: POTASSIUM CL 20 MEQ TAB PO SCH (08:56)
[2016-05-10] MEDS: cefTRIAXone 2 GM in D5W 50 ML IV SCH (09:00)
[2016-05-10] MEDS: NICOTINE 21 MG/24 HR PATCH TD SCH (09:00)
[2016-05-10 10:01] LABS: PLATELET ESTIMATE ADEQUATE (ADEQ)
[2016-05-10] MEDS: IPRATROPIUM/ALBUTEROL 3 ML DEYVIAL IH SCH ×6 (10:10→21:42)
[2016-05-10] MEDS: INSULIN REGULAR, HUMAN 100 UNIT/1 ML VIAL LOW SC SCH ×4 (10:23→20:50)
[2016-05-10] MEDS: FLUTICASONE/SALMETER 100/50MCG DISKUS IH SCH ×2 (10:25→21:42)
[2016-05-10] MEDS: METOPROLOL SUCCINATE XR 25 MG TAB PO SCH (10:40)
[2016-05-10] MEDS: LORazepam 0.5 MG TAB PO SCH ×2 (10:40→20:53)
[2016-05-10] MEDS: OXYMETAZOLINE 30 ML NASAL SPRAY EACHNARE SCH (10:43)
[2016-05-10] MEDS: OXcarbazepine 300 MG TAB PO SCH ×2 (10:43→20:47)
[2016-05-10] MEDS: PETROLAT,WHT/MIN OIL/SOD CHL 3.5 GM OPHT.OINT OP SCH ×3 (10:44→20:51)
[2016-05-10] MEDS: TROLAMINE SALICYLATE 85 GM CRTUBE TP SCH ×4 (10:44→20:54)
[2016-05-10] MEDS ORDERED: ALTEPLASE 2 MG VIAL IVP PRN (12:19)
--- NOTE | 2016-05-10 12:23 | HOSPPROG ---
Hospitalist Progress Note Assessment/Plan: 61 yo M w TBI admitted w sepsis from cellulitis Septic shock- presumed secondary to skin sores- (tachycardic, white count 28, elevated lactate above 4 and hypotension at presentation) septic physiology has resolved Strep A bacteremia- PCR testing confirmed from admit blood culture- suspecting skin source with cellulitis of the left lower extremity - IV ceftriaxone - id consulting repeat cx neg picc in AM acute left lower extremity cellulitis- continue IV cephalosporin looks better Acute on chronic hypoxic respiratory failure- presumed secondary to COPD exacerbation- oxygen saturations 98% on 3 L patient wheezing on examination this morning- chest x-ray( personally reviewed and interpreted) no infiltrates - IV Solu-Medrol - continue inhaled medications - RT DM - hypoglycemic this AM hold glipizide coronary artery disease- patient presenting with indeterminate troponin- no chest pain complaints EKG without acute findings - continue home medications traumatic brain injury- no chronic aspiration - speech therapy evaluation diet diabetic if cleared by speech prophylaxis Lovenox dispo: inpt Subjective: hypoglycemic this AM. afebrile Objective: Vital Signs Temp Pulse Resp BP Pulse Ox 37.0 C 90 16 128/92 H 94 05/10/16 08:00 05/10/16 10:29 05/10/16 10:29 05/10/16 08:00 05/10/16 10:29 Laboratory Results 05/10/16 05:40 05/10/16 05:40 05/09/16 05/10/16 05/11/16 05:59 05:59 05:59 Intake Total 1040 2437 Output Total 625 1000 Balance 415 1437 PT 32.8 SEC (12.0-15.0) H 05/10/16 05:40 INR 3.15 (0.83-1.16) H 05/10/16 05:40 - Physical Exam Constitutional: no apparent distress, appears nourished Eyes: PERRL, anicteric sclera Ears, Nose, Mouth, Throat: moist mucous membranes, hearing normal Cardiovascular: regular rate and rhythym, no murmur, rub, or gallop Respiratory: no respiratory distress, no rales or rhonchi Gastrointestinal: normoactive bowel sounds, soft, non-tender abdomen Genitourinary: no bladder fullness, No milian in urethra Skin: warm, normal color Musculoskeletal: full muscle strength, no muscle tenderness Neurologic: AAOx3 ICD10 Worksheet Patient Problems: Problems Problem Status Diagnosed COPD exacerbation Acute Cellulitis of left thigh Acute Pneumonia Acute Septic shock Acute Severe sepsis Acute Tachycardia Acute Acute systolic CHF (congestive heart failure) Acute Aspiration pneumonia Acute CAD (coronary artery disease), [place] coronary artery Acute Chronic Disease Mgmt/Transitional Care Acute HCAP (healthcare-associated pneumonia) Acute Hospital-acquired pneumonia Acute Ischemic cardiomyopathy Acute Leukocytosis Acute Right lower lobe pneumonia Acute Sepsis Acute Severe sepsis without septic shock Acute
--- NOTE | 2016-05-10 12:33 | PCMIDPN ---
Assessment/Plan: 1. Group a strep bacteremia likely secondary to left lower extremity skin and soft tissue infection: Clinically improving on ceftriaxone. PICC line today or tomorrow. Will need 2 weeks of therapy with ceftriaxone, end date May 22. No new recommendations at this point in time. He will need a follow-up appointment in our office in the next 7 days. 05/10/16 12:33 Subjective: Feeling much better. Cellulitis practically resolved. is in the room helping to feed him. Objective: Ceftriaxone 2 g IV daily day 4 Antibiotic stop date May 22 Vital Signs Temp Pulse Resp BP Pulse Ox 37.0 C 90 16 128/92 H 94 05/10/16 08:00 05/10/16 10:29 05/10/16 10:29 05/10/16 08:00 05/10/16 10:29 Laboratory Results 05/10/16 05:40 05/10/16 05:40 05/09/16 05/10/16 05/11/16 05:59 05:59 05:59 Intake Total 1040 2437 Output Total 625 1000 Balance 415 1437 Repeat blood cultures no growth so far previous blood cultures with group a strep - Physical Exam General Appearance: no apparent distress Extremities: other (Left hip patchy erythema has completely resolved. No other new areas of erythema.) ICD10 Worksheet Patient Problems: Problems Problem Status Diagnosed COPD exacerbation Acute Cellulitis of left thigh Acute Pneumonia Acute Septic shock Acute Severe sepsis Acute Tachycardia Acute Acute systolic CHF (congestive heart failure) Acute Aspiration pneumonia Acute CAD (coronary artery disease), [place] coronary artery Acute Chronic Disease Mgmt/Transitional Care Acute HCAP (healthcare-associated pneumonia) Acute Hospital-acquired pneumonia Acute Ischemic cardiomyopathy Acute Leukocytosis Acute Right lower lobe pneumonia Acute Sepsis Acute Severe sepsis without septic shock Acute
[2016-05-10] MEDS: INSULIN GLARGINE 100 UNITS/ML SYRINGE SC SCH (12:35)
[2016-05-10] MEDS: glipiZIDE XL 5 MG TAB PO SCH (12:36)
--- NOTE | 2016-05-10 12:36 | PDIAF ---
- Diagnosis Diagnosis: Group a strep bacteremia secondary to left lower extremity cellulitis Code Status: Do Not Resuscitate - Medication Management Discharge Medications: Medications to Continue on Transfer Acetaminophen [Tylenol 325mg (*)] 650 mg PO Q6 PRN 11/25/14 [Last Taken 01/21/15 ] Atorvastatin Calcium 10 mg PO HS 11/25/14 [Last Taken 05/05/16] Magnesium Hydroxide [Milk of Magnesia (*)] 30 ml PO DAILY PRN 11/25/14 [Last Taken Unknown] [place]-3 Fatty Acids/Fish Oil [Fish Oil 1,000 mg Capsule] 1 cap PO DAILY [Last Taken 05/06/16] Sennosides/Docusate Sodium [Senna-Docusate Sodium Tablet] 1 each PO BID [Last Taken 05/06/16] metFORMIN HCL [Glucophage 500 mg (*)] 500 mg PO BIDMEAL 11/25/14 [Last Taken ] Aspirin EC [Aspirin EC 81 mg (*)] 81 mg PO DAILY #30 tab 12/07/14 [Last Taken ] Metoprolol Succinate Xr [Toprol Xl 25 mg (*)] 25 mg PO DAILY 01/08/15 [Last Taken 05/06/16] glipiZIDE XL [Glucotrol Xl] 5 mg PO DAILY 01/08/15 [Last Taken 05/06/16] OXcarbazepine [Trileptal 300mg (*)] 600 mg PO BID #0 tab 01/20/15 [Last Taken ] Cyanocobalamin [Vitamin B12 (*)] 1,000 mcg PO DAILY 01/21/15 [Last Taken ] Potassium Cl [Klor-Con 20 meq (*)] 20 meq PO DAILY 03/05/15 [Last Taken 05/06/16 ] Mirtazapine [Remeron] 15 mg PO HS 04/13/15 [Last Taken 05/05/16] Ergocalciferol [Vitamin D2 (*)] 50,000 unit PO Q30D 05/07/16 [Last Taken ] Gabapentin [Neurontin 100 MG (*)] 200 mg PO TID 05/07/16 [Last Taken 05/06/16] Insulin Detemir [Levemir] 14 unit SQ DAILY 05/07/16 [Last Taken 05/06/16] Ipratropium/Albuterol [Duoneb (*)] 3 ml IH Q6H PRN 05/07/16 [Last Taken Unknown] LORazepam [Ativan (*)] 0.25 mg PO BID 05/07/16 [Last Taken 04/24/16] Lisinopril [Zestril 5 mg (*)] 5 mg PO HS 05/07/16 [Last Taken 05/05/16] Mineral Oil/Petrolatum,White [Artificial Tears Eye Ointment] 1 yanick OP TID [Last Taken 05/06/16] Oxymetazoline HCl [Afrin] 1 spray EACHNARE DAILY 05/07/16 [Last Taken 05/05/16] Psyllium Seed (with Dextrose) [Fiber Powder] 397 gm PO DAILY PRN 05/07/16 [Last Taken 05/06/16] Trolamine Salicylate [Aspercreme] 1 yanick TP QID 05/07/16 [Last Taken 05/06/16] Warfarin Sodium [Coumadin 5MG (*)] 13.5 mg PO DAILY16 05/07/16 [Last Taken Unknown] [facility] Antibiotics: Ceftriaxone 2 g IV daily [facility] Antibiotic Stop Date: 05/22/16 Discharge Medications: Refer to the Discharge Home Medication list for PRN reason. PICC Care - Routine: Yes - Orders Diet Texture: Regular Texture Diet, Thin Liquids, Meds Whole w/Liquids - Labs/Radiology CBC Date: 05/18/16 (Fax to Dr. Carty [phone]) CMP Date: 05/18/16 (see above) - Follow Up Care Current Providers and Referrals: CAYDEN EDOUARD [Primary Care Provider] - As per Instructions
[2016-05-10] MEDS: WARFARIN SODIUM 7.5 MG TAB PO SCH (15:15)
[2016-05-10] MEDS: WARFARIN SODIUM 5 MG TAB PO SCH (15:16)
[2016-05-10] MEDS: WARFARIN SODIUM 1 MG TAB PO SCH (15:16)
--- NOTE | 2016-05-10 17:09 | IR ---
Imaging-Guided Peripherally Inserted Central Catheter History: Central line access for multiple medications. Prophylactic Antibiotic: Cefazolin was not ordered and administered for antimicrobial prophylaxis be cause it was not medically necessary for this procedure. VTE Prophylaxis: There is not an order for VTE prophylaxis to be given within 24 hours after procedu re end time because it was not medically necessary for this procedure. Crosscutting Measure: Patient's current list of medications including all known prescriptions, over- the-counters, herbals, and vitamin/mineral/dietary supplements are reviewed. Medications' name, dosa ge, frequency, and route of administration are confirmed. Technique: Following informed consent, the right arm was prepped and draped in sterile fashion. 1% Xy locaine was used for local anesthetic. All elements of maximal sterile barrier technique including cap, mask, sterile gown, sterile gloves, large sterile sheet, hand hygiene, and 2% chlorhexidine for cutaneous antisepsis, followed. Ultrasound evaluation of potential access site was performed. After successfully identifying a patent vessel, ultrasound guidance was used to puncture the vein. A permanent recording was created for the patient's record. Ultrasound transducer was placed in sterile sleeve and used for real-time imaging guidance over steri le gel to enter the basilic vein. 0.018 measuring wire was passed centrally under fluoroscopic contro l. A skin fer with scalpel blade was followed by removing the access needle. A 4 [place] peel-away sh eath was followed by a 4 [place] single-lumen central catheter, trimmed to 41 cm length. . The tip of the catheter was positioned centrally and the guidewire removed. A single fluoroscopic spot image wa s obtained in inspiration. The hub of the catheter was fixed to the skin using a sterile StatLock adh esive device, and a sterile dressing was applied. The catheter was irrigated. Findings: The tip of the central catheter terminates at the junction of the superior vena cava and th e right atrium. Fluoroscopy: 0.2 minutes, 1 images Impression: 4 [place] single lumen peripherally inserted central catheter is ready to use.
[2016-05-10] MEDS: MIRTAZAPINE 15 MG TAB PO SCH (20:48)
[2016-05-10] MEDS: ATORVASTATIN CALCIUM 10 MG TAB PO SCH (20:48)
[2016-05-11] MEDS: IPRATROPIUM/ALBUTEROL 3 ML DEYVIAL IH SCH ×3 (05:49→14:13)
[2016-05-11] MEDS: TROLAMINE SALICYLATE 85 GM CRTUBE TP SCH ×2 (06:39→14:18)
[2016-05-11 06:45] LABS: INR 2.96 (0.83-1.16); PROTIME(PATIENT) 31.2 SEC (12.0-15.0)
[2016-05-11 07:22] VITALS: BP 124/81; TEMP 98.1
--- NOTE | 2016-05-11 08:42 | PDIAF ---
- Diagnosis Diagnosis: Group a strep bacteremia secondary to left lower extremity cellulitis Code Status: Do Not Resuscitate - Medication Management Discharge Medications: Medications to Continue on Transfer Acetaminophen [Tylenol 325mg (*)] 650 mg PO Q6 PRN 11/25/14 [Last Taken 01/21/15 ] Atorvastatin Calcium 10 mg PO HS 11/25/14 [Last Taken 05/05/16] Magnesium Hydroxide [Milk of Magnesia (*)] 30 ml PO DAILY PRN 11/25/14 [Last Taken Unknown] [place]-3 Fatty Acids/Fish Oil [Fish Oil 1,000 mg Capsule] 1 cap PO DAILY [Last Taken 05/06/16] Sennosides/Docusate Sodium [Senna-Docusate Sodium Tablet] 1 each PO BID [Last Taken 05/06/16] metFORMIN HCL [Glucophage 500 mg (*)] 500 mg PO BIDMEAL 11/25/14 [Last Taken ] Aspirin EC [Aspirin EC 81 mg (*)] 81 mg PO DAILY #30 tab 12/07/14 [Last Taken ] Metoprolol Succinate Xr [Toprol Xl 25 mg (*)] 25 mg PO DAILY 01/08/15 [Last Taken 05/06/16] glipiZIDE XL [Glucotrol Xl] 5 mg PO DAILY 01/08/15 [Last Taken 05/06/16] OXcarbazepine [Trileptal 300mg (*)] 600 mg PO BID #0 tab 01/20/15 [Last Taken ] Cyanocobalamin [Vitamin B12 (*)] 1,000 mcg PO DAILY 01/21/15 [Last Taken ] Potassium Cl [Klor-Con 20 meq (*)] 20 meq PO DAILY 03/05/15 [Last Taken 05/06/16 ] Mirtazapine [Remeron] 15 mg PO HS 04/13/15 [Last Taken 05/05/16] Ergocalciferol [Vitamin D2 (*)] 50,000 unit PO Q30D 05/07/16 [Last Taken ] Gabapentin [Neurontin 100 MG (*)] 200 mg PO TID 05/07/16 [Last Taken 05/06/16] Insulin Detemir [Levemir] 14 unit SQ DAILY 05/07/16 [Last Taken 05/06/16] Ipratropium/Albuterol [Duoneb (*)] 3 ml IH Q6H PRN 05/07/16 [Last Taken Unknown] LORazepam [Ativan (*)] 0.25 mg PO BID 05/07/16 [Last Taken 04/24/16] Lisinopril [Zestril 5 mg (*)] 5 mg PO HS 05/07/16 [Last Taken 05/05/16] Mineral Oil/Petrolatum,White [Artificial Tears Eye Ointment] 1 yanick OP TID [Last Taken 05/06/16] Oxymetazoline HCl [Afrin] 1 spray EACHNARE DAILY 05/07/16 [Last Taken 05/05/16] Psyllium Seed (with Dextrose) [Fiber Powder] 397 gm PO DAILY PRN 05/07/16 [Last Taken 05/06/16] Trolamine Salicylate [Aspercreme] 1 yanick TP QID 05/07/16 [Last Taken 05/06/16] Warfarin Sodium [Coumadin 5MG (*)] 13.5 mg PO DAILY16 05/07/16 [Last Taken Unknown] [facility] Antibiotics: Ceftriaxone 2 g IV daily [facility] Antibiotic Stop Date: 05/22/16 Discharge Medications: Refer to the Discharge Home Medication list for PRN reason. PICC Care - Routine: Yes - Orders Diet Texture: Regular Texture Diet, Thin Liquids, Meds Whole w/Liquids - Labs/Radiology CBC Date: 05/18/16 (Fax to Dr. Frost [phone]) CMP Date: 05/18/16 (see above) - Follow Up Care Current Providers and Referrals: CAYDEN EDOUARD [Primary Care Provider] - As per Instructions Best Frost MD [Medical Doctor] - (Patient has follow-up appointment with Dr. Frost at the [facility] for Infectious Diseases May 18 at 1:30 p.m.)
[2016-05-11] MEDS: INSULIN REGULAR, HUMAN 100 UNIT/1 ML VIAL LOW SC SCH ×2 (08:49→12:04)
[2016-05-11] MEDS: cefTRIAXone 2 GM in D5W 50 ML IV SCH (09:18)
[2016-05-11] MEDS: NICOTINE 21 MG/24 HR PATCH TD SCH (09:18)
[2016-05-11] MEDS: INSULIN GLARGINE 100 UNITS/ML SYRINGE SC SCH (09:19)
[2016-05-11] MEDS: OXcarbazepine 300 MG TAB PO SCH (09:20)
[2016-05-11] MEDS: GABAPENTIN 100 MG CAP PO SCH (09:20)
[2016-05-11] MEDS: LORazepam 0.5 MG TAB PO SCH (09:21)
[2016-05-11] MEDS: ASPIRIN EC 81 MG TAB PO SCH (09:21)
[2016-05-11] MEDS: OMEGA-3 FATTY ACIDS 1,000 MG CAP PO SCH (09:21)
[2016-05-11] MEDS: CYANO/VITAMIN B12 1000 MCG TAB PO SCH (09:24)
[2016-05-11] MEDS: glipiZIDE XL 5 MG TAB PO SCH (09:24)
[2016-05-11] MEDS: POTASSIUM CL 20 MEQ TAB PO SCH (09:24)
[2016-05-11] MEDS: METOPROLOL SUCCINATE XR 25 MG TAB PO SCH (09:24)
[2016-05-11] MEDS: SENNOSIDES/DOCUSATE SODIUM TAB PO SCH (09:27)
[2016-05-11] MEDS: OXYMETAZOLINE 30 ML NASAL SPRAY EACHNARE SCH (09:27)
[2016-05-11] MEDS: PETROLAT,WHT/MIN OIL/SOD CHL 3.5 GM OPHT.OINT OP SCH (09:28)
[2016-05-11] MEDS: FLUTICASONE/SALMETER 100/50MCG DISKUS IH SCH (09:52)
[2016-05-11 09:56] VITALS: RESP 18; O2SAT 95
--- NOTE | 2016-05-11 12:41 | HOSPPROG ---
Hospitalist Progress Note Assessment/Plan: 61 yo M w TBI admitted w sepsis from cellulitis Septic shock- presumed secondary to skin sores- (tachycardic, white count 28, elevated lactate above 4 and hypotension at presentation) septic physiology has resolved Strep A bacteremia- PCR testing confirmed from admit blood culture- suspecting skin source with cellulitis of the left lower extremity - IV ceftriaxone - id consulting repeat cx neg picc today acute left lower extremity cellulitis- continue IV cephalosporin looks better Acute on chronic hypoxic respiratory failure- presumed secondary to COPD exacerbation- oxygen saturations 98% on 3 L patient wheezing on examination this morning- chest x-ray( personally reviewed and interpreted) no infiltrates - IV Solu-Medrol - continue inhaled medications - RT DM - hypoglycemic this AM hold glipizide coronary artery disease- patient presenting with indeterminate troponin- no chest pain complaints EKG without acute findings - continue home medications traumatic brain injury- no chronic aspiration - speech therapy evaluation diet diabetic if cleared by speech prophylaxis Lovenox dispo: home today > 30 minutes Subjective: has picc Objective: Vital Signs Temp Pulse Resp BP Pulse Ox 36.7 C 86 18 124/81 H 95 05/11/16 07:15 05/11/16 09:50 05/11/16 09:50 05/11/16 07:15 05/11/16 09:50 Laboratory Results 05/10/16 05:40 05/10/16 05:40 05/10/16 05/11/16 05/12/16 05:59 05:59 05:59 Intake Total 2437 1000 Output Total 1000 1450 Balance 1437 -450 PT 31.2 SEC (12.0-15.0) H 05/11/16 06:20 INR 2.96 (0.83-1.16) H 05/11/16 06:20 - Physical Exam Constitutional: no apparent distress Eyes: PERRL, anicteric sclera Ears, Nose, Mouth, Throat: moist mucous membranes, hearing normal Cardiovascular: regular rate and rhythym, no murmur, rub, or gallop Respiratory: no respiratory distress, no rales or rhonchi Gastrointestinal: normoactive bowel sounds, soft, non-tender abdomen Genitourinary: No milian in urethra Skin: warm, normal color, other (cellulitis resolved) Musculoskeletal: full muscle strength, no muscle tenderness Neurologic: AAOx3, sensation intact bilaterally ICD10 Worksheet Patient Problems: Problems Problem Status Diagnosed COPD exacerbation Acute Cellulitis of left thigh Acute Pneumonia Acute Septic shock Acute Severe sepsis Acute Tachycardia Acute Acute systolic CHF (congestive heart failure) Acute Aspiration pneumonia Acute CAD (coronary artery disease), [place] coronary artery Acute Chronic Disease Mgmt/Transitional Care Acute HCAP (healthcare-associated pneumonia) Acute Hospital-acquired pneumonia Acute Ischemic cardiomyopathy Acute Leukocytosis Acute Right lower lobe pneumonia Acute Sepsis Acute Severe sepsis without septic shock Acute
--- NOTE | 2016-05-11 12:42 | PDIAF ---
- Diagnosis Diagnosis: Group a strep bacteremia secondary to left lower extremity cellulitis Code Status: Do Not Resuscitate - Medication Management Discharge Medications: Medications to Continue on Transfer Acetaminophen [Tylenol 325mg (*)] 650 mg PO Q6 PRN 11/25/14 [Last Taken 01/21/15 ] Atorvastatin Calcium 10 mg PO HS 11/25/14 [Last Taken 05/05/16] Magnesium Hydroxide [Milk of Magnesia (*)] 30 ml PO DAILY PRN 11/25/14 [Last Taken Unknown] [place]-3 Fatty Acids/Fish Oil [Fish Oil 1,000 mg Capsule] 1 cap PO DAILY [Last Taken 05/06/16] Sennosides/Docusate Sodium [Senna-Docusate Sodium Tablet] 1 each PO BID [Last Taken 05/06/16] metFORMIN HCL [Glucophage 500 mg (*)] 500 mg PO BIDMEAL 11/25/14 [Last Taken ] Aspirin EC [Aspirin EC 81 mg (*)] 81 mg PO DAILY #30 tab 12/07/14 [Last Taken ] Metoprolol Succinate Xr [Toprol Xl 25 mg (*)] 25 mg PO DAILY 01/08/15 [Last Taken 05/06/16] glipiZIDE XL [Glucotrol Xl] 5 mg PO DAILY 01/08/15 [Last Taken 05/06/16] OXcarbazepine [Trileptal 300mg (*)] 600 mg PO BID #0 tab 01/20/15 [Last Taken ] Cyanocobalamin [Vitamin B12 (*)] 1,000 mcg PO DAILY 01/21/15 [Last Taken ] Potassium Cl [Klor-Con 20 meq (*)] 20 meq PO DAILY 03/05/15 [Last Taken 05/06/16 ] Mirtazapine [Remeron] 15 mg PO HS 04/13/15 [Last Taken 05/05/16] Ergocalciferol [Vitamin D2 (*)] 50,000 unit PO Q30D 05/07/16 [Last Taken ] Gabapentin [Neurontin 100 MG (*)] 200 mg PO TID 05/07/16 [Last Taken 05/06/16] Insulin Detemir [Levemir] 14 unit SQ DAILY 05/07/16 [Last Taken 05/06/16] Ipratropium/Albuterol [Duoneb (*)] 3 ml IH Q6H PRN 05/07/16 [Last Taken Unknown] LORazepam [Ativan (*)] 0.25 mg PO BID 05/07/16 [Last Taken 04/24/16] Lisinopril [Zestril 5 mg (*)] 5 mg PO HS 05/07/16 [Last Taken 05/05/16] Mineral Oil/Petrolatum,White [Artificial Tears Eye Ointment] 1 yanick OP TID [Last Taken 05/06/16] Oxymetazoline HCl [Afrin] 1 spray EACHNARE DAILY 05/07/16 [Last Taken 05/05/16] Psyllium Seed (with Dextrose) [Fiber Powder] 397 gm PO DAILY PRN 05/07/16 [Last Taken 05/06/16] Trolamine Salicylate [Aspercreme] 1 yanick TP QID 05/07/16 [Last Taken 05/06/16] Warfarin Sodium [Coumadin 5MG (*)] 13.5 mg PO DAILY16 05/07/16 [Last Taken Unknown] cefTRIAXone [Rocephin] 2 gm IV DAILY #0 vial 05/11/16 [Last Taken Unknown] [employer] Antibiotics: Ceftriaxone 2 g IV daily [employer] [facility] Antibiotic Stop Date: 05/22/16 Discharge Medications: Refer to the Discharge Home Medication list for PRN reason. PICC Care - Routine: Yes - Orders Diet Texture: Regular Texture Diet, Thin Liquids, Meds Whole w/Liquids Additional: remove picc line when ceftriaxone complete. requests patients fingernails clearned and cut frequently and that he is tunred in bed regularly - Labs/Radiology CBC Date: 05/18/16 (Fax to Dr. Frost [phone]) CMP Date: 05/18/16 (see above) - Follow Up Care Current Providers and Referrals: CAYDEN EDOUARD [Primary Care Provider] - As per Instructions Best Frost MD [Medical Doctor] - (Patient has follow-up appointment with Dr. Frost at the [facility] for Infectious Diseases May 18 at 1:30 p.m.)
--- NOTE | 2016-05-11 13:03 | GDS ---
[f rep st] DISCHARGE SUMMARY DISCHARGE DIAGNOSES: 1. Septic shock, now resolved. 2. Streptococcus A bacteremia, cleared. Source was skin. 3. Left lower extremity cellulitis. 4. Acute on chronic hypoxemic respiratory failure. 5. Diabetes. 6. History of traumatic brain injury. HOSPITAL COURSE: Please see admission history and physical by Dr. Tosha Sood. The patient presen joel with sepsis, lower extremity cellulitis. He was started on broad-spectrum antibiotics but transi tioned to ceftriaxone when the microbiology became apparent. Blood cultures were clear. PICC line w as placed. He was discharged back to [facility]. He did spend some time in the ICU. He had about a 12-hour pressor requirement that resolved with IV fluid resuscitation and antibiotic therapy. /[id number]/MODL
[2016-05-11 14:16] VITALS: PULSE 90
[2016-05-18] MEDS ORDERED: ERGOCALCIFEROL 50,000 I.UNIT CAP PO SCH (09:00)
== END 2016-05-11 15:48 | DRG 871 ==
LOC: EDUNIT# → F2N 05-07 00:42 → F2W 05-08 05:35
PROVIDERS: ADMIT Hospitalist; ATTEND Internal Medicine
PROC: 02HV33Z Insertion of Infusion Device into Superior Vena Cava, Percutaneous Approach (ICD-10-PCS; principal; 2016-05-06)
DX: A40.0 Sepsis due to streptococcus, group A (principal); L03.116 Cellulitis of left lower limb; R65.21 Severe sepsis with septic shock; J96.21 Acute and chronic respiratory failure with hypoxia; G93.40 Encephalopathy, unspecified; E87.1 Hypo-osmolality and hyponatremia; J44.1 Chronic obstructive pulmonary disease with (acute) exacerbation; I25.10 Atherosclerotic heart disease of native coronary artery without angina pectoris; I50.9 Heart failure, unspecified; I25.5 Ischemic cardiomyopathy; G40.909 Epilepsy, unspecified, not intractable, without status epilepticus; E11.9 Type 2 diabetes mellitus without complications; F17.210 Nicotine dependence, cigarettes, uncomplicated; Z66 Do not resuscitate; Z86.718 Personal history of other venous thrombosis and embolism; Z99.81 Dependence on supplemental oxygen; Z87.820 Personal history of traumatic brain injury; Z95.5 Presence of coronary angioplasty implant and graft; Z79.01 Long term (current) use of anticoagulants
CPT/HCPCS: 82947-QW; 92610-GN; 96374; C1751; G8996-GN-CI; G8997-GN-CI; G8998-GN-CI; J0456; J0692; J0696; J1815; J2185; J3370; J3475; Q9967

== ENCOUNTER 2016-05-23 02:44 | Inpatient (IN) | payer OTHER, MEDICAID ==
[2016-05-23] MEDS ORDERED: NS 1,000 ML BAG *FOR SEPSIS ORDER SET ONLY IV ONE (02:48)
[2016-05-23 03:06] LABS: % IMMATURE GRANULYOCYTES 0.5 % (0.0-1.1); ABSOLUTE IMMATURE GRANULOCYTES 0.09 10^3/uL (0.00-0.10); ADD DIFF? NO; ADD MORPH? NO; ADD SCAN? NO; ATYPICAL LYMPHOCYTE FLAG 0 (0-99); FRAGMENT RBC FLAG 0 (0-99); HEMATOCRIT 44.7 % (40.0-51.0); HEMOGLOBIN 14.2 g/dL (13.7-17.5); LEFT SHIFT FLG 0 (0-99); LIPEMIA HEMOLYSIS FLAG 80 (0-99); MEAN CELL HEMOGLOBIN 26.8 pg (27.9-34.1); MEAN CELL HEMOGLOBIN CONCENTR. 31.8 g/dL (32.4-36.7); MEAN CELL VOLUME 84.5 fL (81.5-99.8); MEAN PLATELET VOLUME 10.1 fL (8.7-11.7); PLATELET CLUMPS FLAG 30 (0-99); PLATELET COUNT 245 10^3/uL (150-400); RED BLOOD CELL COUNT 5.29 10^6/uL (4.40-6.38)
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
[2016-05-23 03:10] LABS: ANION GAP 9 mEq/L (8-16); CARBON DIOXIDE 32 mEq/l (22-31); CHLORIDE 100 mEq/L (97-110); CREATININE 0.6 mg/dL (0.7-1.3); GLOMERULAR FILTRATION RATE > 60; GLUCOSE 135 mg/dL (70-100); POTASSIUM 4.7 mEq/L (3.5-5.2); SODIUM 141 mEq/L (134-144)
[2016-05-23] MEDS ORDERED: CEFEPIME HCL 2 GM in D5W 100 ML IV ONE (03:53)
[2016-05-23] MEDS ORDERED: ONDANSETRON DISINTEGRATING 4 MG TAB PO PRN (04:03)
[2016-05-23] MEDS ORDERED: oxyCODONE IR 5 MG TAB PO PRN (04:03)
[2016-05-23] MEDS ORDERED: ACETAMINOPHEN 500 MG TAB PO PRN (04:03)
[2016-05-23] MEDS ORDERED: ONDANSETRON 4 MG/2 ML VIAL IVP PRN (04:03)
[2016-05-23 04:08] LABS: INR 2.1 (0.83-1.16); PROTIME(PATIENT) 23.7 SEC (12.0-15.0)
[2016-05-23] MEDS ORDERED: ALBUTEROL 3 ML DEYVIAL IH PRN (04:19)
[2016-05-23] MEDS ORDERED: ACETAMINOPHEN 500 MG TAB ONE (04:28)
--- NOTE | 2016-05-23 06:26 | PDGENHP ---
History and Physical - Chief Complaint fever - History of Present Illness Patient is a 61-year-old male with a history of TBI complicated by seizure disorder, COPD with chronic respiratory failure, CAD, diastolic CHF history of DVT and PE on systemic anticoagulation and diabetes who was sent to the ED from his SNF for fever. Patient was recently admitted to [facility] (05/06-05/12) for lower extremity s. pyogenes cellulitis, completed a course of ceftriaxone on 05/22. However, per SNF staff, over the past 2 days patient has been experiencing a worsening cough, erythema of his LLE appeared to worse and on 05/22 he spiked a fever to 101F. Given this, he was sent to the ED for further evaluation. on evaluation, patient is complaining of left lower extremity pain as well as cough, although he denies shortness of breath, chest pain, nausea, vomiting, diarrhea or dysuria. On arrival to the ED patient was afebrile, hemodynamically stable, and saturating at his baseline on 3L NC. Labs revealed leukocytosis, elevated from previous, neg troponin, normal BMP. CXR was largely unchanged from priors, however, possible RLE infiltrate seen. Rapid flu swab was negative. He was cultured and initiated on IV antibiotics and admitted to the hospital service for further management. History Information - Allergies/Home Medication List Allergies/Adverse Reactions: levofloxacin [From Levaquin] Allergy (Verified 05/23/16 03:19) Other-Enter Comments penicillin Allergy (Verified 05/23/16 03:19) Home Medications: Acetaminophen [Tylenol 325mg (*)] 650 mg PO Q6 PRN 11/25/14 [Last Taken 01/21/15 ] Atorvastatin Calcium 10 mg PO HS 11/25/14 [Last Taken 05/05/16] Magnesium Hydroxide [Milk of Magnesia (*)] 30 ml PO DAILY PRN 11/25/14 [Last Taken Unknown] [place]-3 Fatty Acids/Fish Oil [Fish Oil 1,000 mg Capsule] 1 cap PO DAILY [Last Taken 05/06/16] Sennosides/Docusate Sodium [Senna-Docusate Sodium Tablet] 1 each PO BID [Last Taken 05/06/16] metFORMIN HCL [Glucophage 500 mg (*)] 500 mg PO BIDMEAL 11/25/14 [Last Taken ] Metoprolol Succinate Xr [Toprol Xl 25 mg (*)] 25 mg PO DAILY 01/08/15 [Last Taken 05/06/16] glipiZIDE XL [Glucotrol Xl] 5 mg PO DAILY 01/08/15 [Last Taken 05/06/16] Cyanocobalamin [Vitamin B12 (*)] 1,000 mcg PO DAILY 01/21/15 [Last Taken ] Potassium Cl [Klor-Con 20 meq (*)] 20 meq PO DAILY 03/05/15 [Last Taken 05/06/16 ] Mirtazapine [Remeron] 15 mg PO HS 04/13/15 [Last Taken 05/05/16] Ergocalciferol [Vitamin D2 (*)] 50,000 unit PO Q30D 05/07/16 [Last Taken ] Gabapentin [Neurontin 100 MG (*)] 200 mg PO TID 05/07/16 [Last Taken 05/06/16] Insulin Detemir [Levemir] 14 unit SQ DAILY 05/07/16 [Last Taken 05/06/16] Ipratropium/Albuterol [Duoneb (*)] 3 ml IH Q6H PRN 05/07/16 [Last Taken Unknown] LORazepam [Ativan (*)] 0.25 mg PO BID 05/07/16 [Last Taken 04/24/16] Lisinopril [Zestril 5 mg (*)] 5 mg PO HS 05/07/16 [Last Taken 05/05/16] Mineral Oil/Petrolatum,White [Artificial Tears Eye Ointment] 1 yanick OP TID [Last Taken 05/06/16] Oxymetazoline HCl [Afrin] 1 spray EACHNARE DAILY 05/07/16 [Last Taken 05/05/16] Psyllium Seed (with Dextrose) [Fiber Powder] 397 gm PO DAILY PRN 05/07/16 [Last Taken 05/06/16] Trolamine Salicylate [Aspercreme] 1 yanick TP QID 05/07/16 [Last Taken 05/06/16] Warfarin Sodium [Coumadin 5MG (*)] 13.5 mg PO DAILY16 05/07/16 [Last Taken Unknown] I have personally reviewed and updated: family history, medical history, social history, surgical history - Past Medical History Additional medical history: Traumatic brain injury, complicated by seizure disorder. COPD. chronic respiratory failure on 3 L nasal cannula. Ischemic cardiomyopathy diastolic, last EF 50%. CAD with PCI in 2015. hyperlipidemia. history of DVT and PE on chronic anticoagulation. diabetes mellitus 2 - Surgical History Reports: no pertinent surgical hx - Family History Positive for: non-pertinent - Social History Smoking Status: Current every day smoker Alcohol Use: None Drug Use: None Additional social history: patient currently lives in [facility], is dependent on staff for ADLs. Review of Systems ROS: 10pt was reviewed & negative except for what was stated in HPI & below Physical Exam Temp Pulse Resp BP Pulse Ox 36.6 C 83 16 119/75 95 05/23/16 05:32 05/23/16 05:32 05/23/16 05:32 05/23/16 05:32 05/23/16 05:32 O2 (L/minute) 3 Constitutional: no apparent distress, appears nourished, not in pain, chronically ill appearing Eyes: PERRL, anicteric sclera, EOMI Ears, Nose, Mouth, Throat: moist mucous membranes, hearing normal, ears appear normal, no oral mucosal ulcers Cardiovascular: regular rate and rhythym, no murmur, rub, or gallop, pulses symmetric bilaterally, edema ( Left lower extremity), No JVD Peripheral Pulses: 2+: dorsalis-pedis (R), dorsalis-pedis (L) Respiratory: no respiratory distress, expiratory wheeze, bronchial breath sounds Gastrointestinal: normoactive bowel sounds, soft, non-tender abdomen, no palpable masses, No tenderness, No guarding, No rebound, No distension Genitourinary: no bladder fullness, no bladder tenderness Skin: erythema ( extensive erythema of left lower extremity extending from posterior popliteal fossa proximally to inguinal area diffusely tender to palpation, no obvious skin breakdown or abscess) Musculoskeletal: full muscle strength, no muscle tenderness, normal joint ROM, no joint effusions Neurologic: CN II-XII Intact, other (oriented to person, chronic left leg paresis; RLE 5/5 in strengt) Psychiatric: interacting appropriately, not anxious, not encephalopathic Lab Data & Imaging Review 05/23/16 02:35 05/23/16 02:35 WBC 16.94 10^3/uL (3.80-9.50) H 05/23/16 02:35 RBC 5.29 10^6/uL (4.40-6.38) 05/23/16 02:35 Hgb 14.2 g/dL (13.7-17.5) 05/23/16 02:35 Hct 44.7 % (40.0-51.0) 05/23/16 02:35 MCV 84.5 fL (81.5-99.8) 05/23/16 02:35 MCH 26.8 pg (27.9-34.1) L 05/23/16 02:35 MCHC 31.8 g/dL (32.4-36.7) L 05/23/16 02:35 RDW 15.0 % (11.5-15.2) 05/23/16 02:35 Plt Count 245 10^3/uL (150-400) 05/23/16 02:35 MPV 10.1 fL (8.7-11.7) 05/23/16 02:35 Neut % (Auto) 79.7 % (39.3-74.2) H 05/23/16 02:35 Lymph % (Auto) 9.4 % (15.0-45.0) L 05/23/16 02:35 [place] % (Auto) 9.6 % (4.5-13.0) 05/23/16 02:35 Eos % (Auto) 0.4 % (0.6-7.6) L 05/23/16 02:35 Baso % (Auto) 0.4 % (0.3-1.7) 05/23/16 02:35 Nucleat RBC Rel Count 0.0 % (0.0-0.2) 05/23/16 02:35 Absolute Neuts (auto) 13.51 10^3/uL (1.70-6.50) H 05/23/16 02:35 Absolute Lymphs (auto) 1.59 10^3/uL (1.00-3.00) 05/23/16 02:35 Absolute Monos (auto) 1.62 10^3/uL (0.30-0.80) H 05/23/16 02:35 Absolute Eos (auto) 0.06 10^3/uL (0.03-0.40) 05/23/16 02:35 Absolute Basos (auto) 0.07 10^3/uL (0.02-0.10) 05/23/16 02:35 Absolute Nucleated RBC 0.00 10^3/uL (0-0.01) 05/23/16 02:35 Immature Gran % 0.5 % (0.0-1.1) 05/23/16 02:35 Immature Gran # 0.09 10^3/uL (0.00-0.10) 05/23/16 02:35 PT 23.7 SEC (12.0-15.0) H 05/23/16 02:35 INR 2.10 (0.83-1.16) H 05/23/16 02:35 VBG Lactic Acid 1.3 mmol/L (0.7-2.1) 05/23/16 02:56 Sodium 141 mEq/L (134-144) 05/23/16 02:35 Potassium 4.7 mEq/L (3.5-5.2) 05/23/16 02:35 Chloride 100 mEq/L (97-110) 05/23/16 02:35 Carbon Dioxide 32 mEq/l (22-31) H 05/23/16 02:35 Anion Gap 9 mEq/L (8-16) 05/23/16 02:35 BUN 11 mg/dL (7-23) 05/23/16 02:35 Creatinine 0.6 mg/dL (0.7-1.3) L 05/23/16 02:35 Estimated GFR > 60 05/23/16 02:35 Glucose 135 mg/dL (70-100) H 05/23/16 02:35 Calcium 9.0 mg/dL (8.5-10.4) 05/23/16 02:35 Influenza Typ A,B (DFA) NEGATIVE FOR FLU (NEGATIVE) 05/23/16 04:00 Visualized and Interpreted Chest x-ray results: Yes Chest X-Ray results: normal heart size, other (cannot r/o retrocardiac and/or RLL infiltrate) Assessment & Plan Assessment: patient is a 61-year-old male with a history of COPD, chronic respiratory failure, traumatic brain injury with functional quadriplegia, CAD and CHF, history of DVT on chronic anticoagulation who presents to the ED with fever. Patient recently admitted for lower extremity cellulitis and completed a course of ceftriaxone, however presents with leukocytosis, fever and worsening lower extremity pain and erythema, as well as productive cough. Plan: # sepsis Patient meets SIRS criteria with fever (101F prior to arrival in ED) and leukocytosis, with two possible sources of infection. Patient has respiratory symptoms, with a thick productive cough, although resp failure appears to be at his chronic baseline. Official cxr read pending, possible RLL infiltrate on my read. In addition, despite completing > 2 week course of ceftriaxone, directed towards previous BC result of s. pyogenes, LLE cellulitis appears to have clinically worsened and could also be a source of infection. Will cover broadly with cefepime and vancomycin for both respiratory and skin source. - f/u blood cultures, obtain sputum cultures, check legionella, strept antigen - cont Vanc/cefepime empirically - f/u CXR - ID consult # Chronic resp failure, COPD Patient appears to be at baseline O2 requirements, but exam consistent diffuse mild wheezing. Will treat for presumed pneumonia, provide standing and prn nebs and monitor. Will hold off on steroids, start if resp status worsens or if signs of acute copd exacerbation. # diastolic cardiomyopathy, CAD, HLD Pt denies any cardiac symptoms, appears euvolemic, CXR without any obvious pulmonary edema or effusions. Will cont home med regimen. # h/o DVT /PE INR therapeutic on presentation. Will continue pt's warfarin. # DM2 Monitor FS and cover with sliding scale insulin. # dispo: admit to inpt service for > 2 MN stay # gen: Cardiac, diabetic diet DVT ppx: on warfarin DNR/DNI
[2016-05-23] MEDS ORDERED: D50W 25 GM/50 ML SYR IVP PRN (06:30)
[2016-05-23] MEDS: IPRATROPIUM/ALBUTEROL 3 ML DEYVIAL IH SCH ×4 (06:41→20:59)
[2016-05-23] MEDS ORDERED: VANCOMYCIN HCL/NORMAL SALINE 250 ML IV SCH (07:00)
--- NOTE | 2016-05-23 08:10 | DX ---
Chest, PA and Lateral History: Sepsis Comparison: May 06, 2016 Findings: A right jugular venous catheter has been removed and replaced with a right arm PICC line wh ich is in excellent position, with tip in the superior vena cava. There is a new small focal consol idation at the right base. The heart appears enlarged. The pulmonary vascularity is plethoric. The co stophrenic gutters remain sharp.. Impression: Early or impending CHF versus fluid overloading 2. Small new area of consolidation at the right lung base. 3. Good position of PICC line.
[2016-05-23] MEDS: VANCOMYCIN 1.5 GM in D5W 250 ML IV SCH ×2 (08:26→20:29)
--- NOTE | 2016-05-23 09:51 | HOSPPROG ---
Hospitalist Progress Note Assessment/Plan: Pt admitted this am by Dr. Cha. Chart reviewed, pt seen and examined.. Sepsis secondary to HCAP vs persistent LLE cellulitis - RLL infiltrate on CXR. Cont Cefepime and Vanc for now. Speech / swallow eval to assess aspiration risk. ID to consult. Chronic hypoxemic respiratory failure - O2 requirement at baseline. LE venous stasis with h/o cellulitis s/p 2 weeks of Ceftriaxone - he still has evidence of cellulitis proximal, posteromedial LLE Chronic diastolic heart failure - euvolemic, cont outpt meds Diabetes mellitus - will cont outpt insulin regimen once med rec completed DVT/PE - INR therapeutic. Pharmacy to dose Warfarin. DNR Dispo - cont inpt Subjective: Pt feels well. Reports he does not use O2 at home. No CP or SOB. Denies cough. He is a poor historian. Good appetite, ate entire breakfast. Objective: Vital Signs Temp Pulse Resp BP Pulse Ox 36.5 C 86 16 123/70 H 88 L 05/23/16 07:41 05/23/16 07:41 05/23/16 07:41 05/23/16 07:41 05/23/16 07:41 05/22/16 05/23/16 05/24/16 05:59 05:59 05:59 Intake Total 1999 Balance 1999 PT 23.7 SEC (12.0-15.0) H 05/23/16 02:35 INR 2.10 (0.83-1.16) H 05/23/16 02:35 ICD10 Worksheet Patient Problems: Problems Problem Status Diagnosed Cellulitis Acute Fever Acute Acute systolic CHF (congestive heart failure) Acute Aspiration pneumonia Acute CAD (coronary artery disease), [place] coronary artery Acute COPD exacerbation Acute Cellulitis of left thigh Acute Chronic Disease Mgmt/Transitional Care Acute HCAP (healthcare-associated pneumonia) Acute Hospital-acquired pneumonia Acute Ischemic cardiomyopathy Acute Leukocytosis Acute Pneumonia Acute Right lower lobe pneumonia Acute Sepsis Acute Septic shock Acute Severe sepsis Acute Severe sepsis without septic shock Acute Tachycardia Acute
[2016-05-23] MEDS: INSULIN LISPRO 100 UNIT/ML SC SCH ×3 (10:23→20:11)
[2016-05-23] MEDS ORDERED: NICOTINE 7 MG/24 HR PATCH TD SCH (12:00)
[2016-05-23] MEDS ORDERED: MAGNESIUM HYDROXIDE 30 ML UDCUP PO PRN (13:26)
[2016-05-23] MEDS ORDERED: PSYLLIUM SEED PO PRN (13:26)
[2016-05-23] MEDS ORDERED: [UNRECOGNIZED DRUG - OTHER] PO PRN (13:26)
[2016-05-23] MEDS ORDERED: IPRATROPIUM/ALBUTEROL 3 ML DEYVIAL IH PRN (13:26)
[2016-05-23] MEDS ORDERED: INSULIN DETEMIR 14 UNIT SQ SCH (13:30)
[2016-05-23] MEDS ORDERED: PSYLLIUM METAMUCIL 1 PKT PO PRN (13:47)
[2016-05-23] MEDS: INSULIN GLARGINE 100 UNITS/ML SYRINGE SC SCH (15:54)
[2016-05-23] MEDS: TROLAMINE SALICYLATE 85 GM CRTUBE TP SCH ×2 (15:55→20:30)
[2016-05-23] MEDS: GABAPENTIN 100 MG CAP PO SCH ×2 (15:55→20:08)
[2016-05-23] MEDS: PETROLAT,WHT/MIN OIL/SOD CHL 3.5 GM OPHT.OINT OP SCH ×2 (15:55→20:30)
[2016-05-23] MEDS: NICOTINE 7 MG/24 HR PATCH TD SCH (17:05)
[2016-05-23] MEDS: OXcarbazepine 300 MG TAB PO SCH ×2 (17:05→20:09)
[2016-05-23] MEDS: WARFARIN SODIUM 5 MG TAB PO SCH (17:06)
[2016-05-23] MEDS: WARFARIN SODIUM 1 MG TAB PO SCH (17:06)
[2016-05-23] MEDS: WARFARIN SODIUM 2.5 MG TAB PO SCH (17:06)
[2016-05-23] MEDS: POTASSIUM CL 20 MEQ TAB PO SCH (17:06)
[2016-05-23] MEDS: metFORMIN HCL 500 MG TAB PO SCH (17:06)
--- NOTE | 2016-05-23 18:32 | PCMIDPN ---
Assessment/Plan: Assessment/Plan: 1. Fever with possible pneumonia: -blood cx pending -Currently on vanco, cefepime empirically -Reevaluate labs, await blood cx results, - elevated LLE. -care coordinated with hospitalist team. 2. LLE cellulitis: - mostly concentrated on the medial aspect. -Very sensitive to touch -elevate LLE -continue atbx. Subjective: Asked to consult on patient who was brought in yesterday after 103F temperature. His history in brief: [facility] admission in April with Group A strep bacteremia thought to be secondary to LLE cellulitis. Pt had f/u blood cx from 05/08 [facility]. He was on ceftriaxone which completed yesterday. He was seen in office Dr. Frost on 05/18/16. Wbc up to 16 today. CXr with possible new RLL pneumonia. Pt is coughing, wheezing with occasional phlegm. LLE is sensitive to touch but not acutely red. Denies abd pain or diarrhea. Patient poor historian Objective: Vital Signs Temp Pulse Resp BP Pulse Ox 36.7 C 80 19 155/86 H 95 05/23/16 15:32 05/23/16 16:01 05/23/16 15:32 05/23/16 15:32 05/23/16 16:01 05/22/16 05/23/16 05/24/16 05:59 05:59 05:59 Intake Total 1999 1020 Balance 1999 1020 - Physical Exam General Appearance: alert, no apparent distress Respiratory: wheezing, coarse breath sounds Cardiac/Chest: regular rate, rhythm Extremities: swelling (LLE) Abdomen: normal bowel sounds, non-tender, soft, No distended Skin: other (chronic venous stasis appearance to LLE. no acute redness. skin is warm to touch. unable to exam posterior aspect as pt refuses exam) ICD10 Worksheet Patient Problems: Problems Problem Status Diagnosed Cellulitis Acute Fever Acute Acute systolic CHF (congestive heart failure) Acute Aspiration pneumonia Acute CAD (coronary artery disease), [place] coronary artery Acute COPD exacerbation Acute Cellulitis of left thigh Acute Chronic Disease Mgmt/Transitional Care Acute HCAP (healthcare-associated pneumonia) Acute Hospital-acquired pneumonia Acute Ischemic cardiomyopathy Acute Leukocytosis Acute Pneumonia Acute Right lower lobe pneumonia Acute Sepsis Acute Septic shock Acute Severe sepsis Acute Severe sepsis without septic shock Acute Tachycardia Acute
[2016-05-23] MEDS: SENNOSIDES/DOCUSATE SODIUM TAB PO SCH (20:08)
[2016-05-23] MEDS: LISINOPRIL 5 MG TAB PO SCH (20:09)
[2016-05-23] MEDS: ATORVASTATIN CALCIUM 10 MG TAB PO SCH (20:10)
[2016-05-23] MEDS: CEFEPIME HCL 2 GM in D5W 100 ML IV SCH ×2 (20:10→23:04)
[2016-05-23] MEDS: LORazepam 0.5 MG TAB PO SCH (20:11)
[2016-05-23] MEDS: MIRTAZAPINE 15 MG TAB PO SCH (20:40)
[2016-05-23] MEDS ORDERED: NON-FORMULARY NEW DRUG (Mirtazapine [Remeron] 15 MG) PO SCH (21:00)
[2016-05-24] MEDS: CEFEPIME HCL 2 GM in D5W 100 ML IV SCH ×3 (05:09→21:12)
[2016-05-24] MEDS: TROLAMINE SALICYLATE 85 GM CRTUBE TP SCH ×4 (05:09→20:20)
[2016-05-24 05:25] LABS: % IMMATURE GRANULYOCYTES 0.6 % (0.0-1.1); ABSOLUTE IMMATURE GRANULOCYTES 0.08 10^3/uL (0.00-0.10); ADD DIFF? NO; ADD MORPH? NO; ADD SCAN? NO; ATYPICAL LYMPHOCYTE FLAG 10 (0-99); FRAGMENT RBC FLAG 0 (0-99); HEMATOCRIT 34.8 % (40.0-51.0); HEMOGLOBIN 11.2 g/dL (13.7-17.5); LEFT SHIFT FLG 0 (0-99); LIPEMIA HEMOLYSIS FLAG 80 (0-99); MEAN CELL HEMOGLOBIN 26.8 pg (27.9-34.1); MEAN CELL HEMOGLOBIN CONCENTR. 32.2 g/dL (32.4-36.7); MEAN CELL VOLUME 83.3 fL (81.5-99.8); MEAN PLATELET VOLUME 9.9 fL (8.7-11.7); PLATELET CLUMPS FLAG 30 (0-99); PLATELET COUNT 193 10^3/uL (150-400); RED BLOOD CELL COUNT 4.18 10^6/uL (4.40-6.38); RED CELL DISTRIBUTION WIDTH 14.7 % (11.5-15.2)
[2016-05-24] MEDS: IPRATROPIUM/ALBUTEROL 3 ML DEYVIAL IH SCH ×4 (05:46→21:32)
[2016-05-24 06:38] LABS: ANION GAP 7 mEq/L (8-16); CALCIUM 8.2 mg/dL (8.5-10.4); CARBON DIOXIDE 30 mEq/l (22-31); CHLORIDE 101 mEq/L (97-110); CREATININE 0.5 mg/dL (0.7-1.3); GLOMERULAR FILTRATION RATE > 60; GLUCOSE 112 mg/dL (70-100); POTASSIUM 4.4 mEq/L (3.5-5.2); SODIUM 138 mEq/L (134-144)
[2016-05-24] MEDS: GABAPENTIN 100 MG CAP PO SCH ×3 (08:03→20:24)
[2016-05-24] MEDS: METOPROLOL SUCCINATE XR 25 MG TAB PO SCH (08:04)
[2016-05-24] MEDS: glipiZIDE XL 5 MG TAB PO SCH (08:04)
[2016-05-24] MEDS: ASPIRIN EC 81 MG TAB PO SCH (08:04)
[2016-05-24] MEDS: VANCOMYCIN 1.5 GM in D5W 250 ML IV SCH ×2 (08:04→20:20)
[2016-05-24] MEDS: metFORMIN HCL 500 MG TAB PO SCH ×2 (08:04→18:47)
[2016-05-24] MEDS: CYANO/VITAMIN B12 1000 MCG TAB PO SCH (08:04)
[2016-05-24] MEDS: OXcarbazepine 300 MG TAB PO SCH ×2 (08:04→20:22)
[2016-05-24] MEDS: INSULIN GLARGINE 100 UNITS/ML SYRINGE SC SCH (08:04)
[2016-05-24] MEDS: INSULIN LISPRO 100 UNIT/ML SC SCH ×4 (08:11→18:47)
[2016-05-24] MEDS: LORazepam 0.5 MG TAB PO SCH ×3 (08:11→20:22)
[2016-05-24] MEDS: PETROLAT,WHT/MIN OIL/SOD CHL 3.5 GM OPHT.OINT OP SCH ×4 (08:12→20:25)
[2016-05-24] MEDS: NICOTINE 7 MG/24 HR PATCH TD SCH (08:29)
[2016-05-24] MEDS: POTASSIUM CL 20 MEQ TAB PO SCH (08:29)
[2016-05-24] MEDS: SENNOSIDES/DOCUSATE SODIUM TAB PO SCH ×2 (09:07→20:24)
--- NOTE | 2016-05-24 11:05 | PCMIDPN ---
Assessment/Plan: Assessment/Plan: 1. Fever with possible pneumonia: -on empiric vanco + cefepime. - ongoing wheezing. -CXR noted. 2. LLE cellulitis: - mostly concentrated on the medial aspect. -Very sensitive to touch and had to have assist to lift and exam extremity. -recommend further imaging : to evaluate for dvt vs fluid collection. -continue current abx for now. -care coordinated with hospitalist team. Subjective: Afebrile. denies sob. some cough. on 3L o2. denies abd pain or diarrhea. can't move right leg which has been there apparently for some time. Objective: Vital Signs Temp Pulse Resp BP Pulse Ox 36.9 C 85 16 136/75 H 94 05/24/16 07:40 05/24/16 10:39 05/24/16 10:39 05/24/16 08:04 05/24/16 10:39 Laboratory Results 05/24/16 05:00 05/24/16 05:00 05/23/16 05/24/16 05/25/16 05:59 05:59 05:59 Intake Total 1999 1944 240 Output Total 2 Balance 1999 1942 240 - Physical Exam General Appearance: alert, no apparent distress Respiratory: wheezing, coarse breath sounds (right base) Cardiac/Chest: regular rate, rhythm Extremities: swelling Abdomen: normal bowel sounds, non-tender, soft, No distended Skin: erythema (medial left leg and thigh.) ICD10 Worksheet Patient Problems: Problems Problem Status Diagnosed Cellulitis Acute Fever Acute Acute systolic CHF (congestive heart failure) Acute Aspiration pneumonia Acute CAD (coronary artery disease), [place] coronary artery Acute COPD exacerbation Acute Cellulitis of left thigh Acute Chronic Disease Mgmt/Transitional Care Acute HCAP (healthcare-associated pneumonia) Acute Hospital-acquired pneumonia Acute Ischemic cardiomyopathy Acute Leukocytosis Acute Pneumonia Acute Right lower lobe pneumonia Acute Sepsis Acute Septic shock Acute Severe sepsis Acute Severe sepsis without septic shock Acute Tachycardia Acute
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
[2016-05-24] MEDS: WARFARIN SODIUM 2.5 MG TAB PO SCH (16:03)
[2016-05-24] MEDS: predniSONE 20 MG TAB PO SCH (16:03)
[2016-05-24] MEDS: WARFARIN SODIUM 1 MG TAB PO SCH (16:03)
[2016-05-24] MEDS: WARFARIN SODIUM 5 MG TAB PO SCH (16:03)
--- NOTE | 2016-05-24 16:10 | US ---
Ultrasound Venous Duplex/Doppler left Leg History: Pain and swelling. Findings: Ultrasound venous duplex and Doppler imaging of the common femoral vein, femoral vein, pop liteal vein, calf veins, greater saphenous vein origin, and contralateral common femoral vein demonst rates normal compressibility, color flow, and Doppler flow without deep venous thrombosis. Benign-yanick earing lymph nodes present in the left groin. Impression: No deep venous thrombosis left leg.
[2016-05-24] MEDS: ATORVASTATIN CALCIUM 10 MG TAB PO SCH (20:22)
[2016-05-24] MEDS: MIRTAZAPINE 15 MG TAB PO SCH (20:22)
[2016-05-24] MEDS: LISINOPRIL 5 MG TAB PO SCH (20:24)
[2016-05-25] MEDS: CEFEPIME HCL 2 GM in D5W 100 ML IV SCH ×3 (04:57→21:09)
[2016-05-25] MEDS: IPRATROPIUM/ALBUTEROL 3 ML DEYVIAL IH SCH ×4 (05:38→23:04)
[2016-05-25] MEDS: TROLAMINE SALICYLATE 85 GM CRTUBE TP SCH ×4 (05:46→20:46)
[2016-05-25] MEDS: VANCOMYCIN 1.5 GM in D5W 250 ML IV SCH (08:08)
[2016-05-25] MEDS: INSULIN LISPRO 100 UNIT/ML SC SCH ×3 (08:11→17:49)
[2016-05-25] MEDS: CYANO/VITAMIN B12 1000 MCG TAB PO SCH (08:22)
[2016-05-25] MEDS: glipiZIDE XL 5 MG TAB PO SCH (08:22)
[2016-05-25] MEDS: metFORMIN HCL 500 MG TAB PO SCH ×2 (08:22→19:01)
[2016-05-25] MEDS: ASPIRIN EC 81 MG TAB PO SCH (08:22)
[2016-05-25] MEDS: METOPROLOL SUCCINATE XR 25 MG TAB PO SCH (08:22)
[2016-05-25] MEDS: GABAPENTIN 100 MG CAP PO SCH ×3 (08:22→20:44)
[2016-05-25] MEDS: INSULIN GLARGINE 100 UNITS/ML SYRINGE SC SCH (08:23)
[2016-05-25] MEDS: SENNOSIDES/DOCUSATE SODIUM TAB PO SCH ×2 (08:38→20:44)
[2016-05-25] MEDS: NICOTINE 7 MG/24 HR PATCH TD SCH (08:39)
[2016-05-25] MEDS: POTASSIUM CL 20 MEQ TAB PO SCH (08:47)
[2016-05-25] MEDS: predniSONE 20 MG TAB PO SCH (08:47)
[2016-05-25] MEDS: LORazepam 0.5 MG TAB PO SCH ×2 (08:47→20:46)
[2016-05-25] MEDS: OXcarbazepine 300 MG TAB PO SCH ×2 (08:48→20:43)
--- NOTE | 2016-05-25 11:43 | PCMIDPN ---
Assessment/Plan: Assessment/Plan: * Fever due to either right lower lobe pneumonia versus recurrent left lower extremity cellulitis: Clinically improved although persistent diffuse wheezing. Blood cultures remain negative. Based on negative blood cultures, will discontinue vancomycin and plan for 7 day course of cefepime. Continue to follow left lower extremity exam. 05/25/16 11:40 Subjective: Patient feels better. Continues with cough although he typically has underlying cough. Wants to smoke. Intermittent pain in left calf. Objective: Vital Signs Temp Pulse Resp BP Pulse Ox 36.6 C 90 18 152/87 H 94 05/25/16 07:51 05/25/16 10:10 05/25/16 10:10 05/25/16 08:22 05/25/16 10:10 Laboratory Results 05/24/16 05:00 05/24/16 05:00 05/24/16 05/25/16 05/26/16 05:59 05:59 05:59 Intake Total 1945 2320 Output Total 2 2 Balance 1943 2318 Vancomycin # 3 Cefepime # 3 Blood cultures x2 no growth Ultrasound of left lower extremity without evidence of DVT - Physical Exam General Appearance: alert, no apparent distress EENT: No scleral icterus, No thrush Respiratory: wheezing (Diffuse bilaterally), No respiratory distress Cardiac/Chest: regular rate, rhythm Extremities: inflammation (Left medial thigh with faint erythema and induration ; left calf without erythema and minimal tenderness) Abdomen: non-tender - Line/s RUE PICC Lines: No drainage, No erythema ICD10 Worksheet Patient Problems: Problems Problem Status Diagnosed Cellulitis Acute Fever Acute Acute systolic CHF (congestive heart failure) Acute Aspiration pneumonia Acute CAD (coronary artery disease), [place] coronary artery Acute COPD exacerbation Acute Cellulitis of left thigh Acute Chronic Disease Mgmt/Transitional Care Acute HCAP (healthcare-associated pneumonia) Acute Hospital-acquired pneumonia Acute Ischemic cardiomyopathy Acute Leukocytosis Acute Pneumonia Acute Right lower lobe pneumonia Acute Sepsis Acute Septic shock Acute Severe sepsis Acute Severe sepsis without septic shock Acute Tachycardia Acute
--- NOTE | 2016-05-25 13:40 | HOSPPROG ---
Hospitalist Progress Note Assessment/Plan: # Sepsis- secondary to HCAP vs persistent LLE cellulitis - CXR (personally reviewed and interpreted) RLL infiltrate- BCx's NGTD. Swallow eval done, low aspiration risk- oxygen saturation 92% on room air - Cont Cefepime add azithromycin # HCAP - as above continue cefepime and azithromycin # Chronic hypoxemic respiratory failure - secondary to PNA, h/o COPD- he does use intermittent O2 at [place]. - Cont QID duonebs - prn alb - cont oral Prednisone # LE venous stasis with h/o cellulitis s/p 2 weeks of Ceftriaxone recently - he developed fever on last day of ceftriaxone and returned to the hospital. He still has evidence of cellulitis proximal, posteromedial LLE - LLE u/s neg for DVT . - continue cefepime for 7 day course # Chronic diastolic heart failure - euvolemic on examination - 2L fluid restriction as pt overdoes it. -cont outpt meds, # Diabetes mellitus - improved glucose control overnight BS 140s to 150s this a.m. - continue Lantus # history of DVT/PE - INR therapeutic on admission - continueWarfarin. 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 # DNR # Dispo - > 2MN as requiring IV antibiotics and monitoring- patient improved suspect safe disposition tomorrow back to [place] I have discussed the case with Infectious Disease- we will complete 7 day course of cefepime in at 5 day course of azithromycin Subjective: feeling much better Objective: Vital Signs Temp Pulse Resp BP Pulse Ox 36.6 C 90 18 152/87 H 94 05/25/16 07:51 05/25/16 10:10 05/25/16 10:10 05/25/16 08:22 05/25/16 10:10 Laboratory Results 05/24/16 05:00 05/24/16 05:00 05/24/16 05/25/16 05/26/16 05:59 05:59 05:59 Intake Total 1944 2319 Output Total 2 2 Balance 1942 2317 PT 23.7 SEC (12.0-15.0) H 05/23/16 02:35 INR 2.10 (0.83-1.16) H 05/23/16 02:35 - Physical Exam Constitutional: chronically ill appearing Eyes: anicteric sclera Ears, Nose, Mouth, Throat: moist mucous membranes Cardiovascular: regular rate and rhythym Respiratory: no respiratory distress, expiratory wheeze Gastrointestinal: normoactive bowel sounds, soft, non-tender abdomen Genitourinary: no bladder fullness Skin: warm, normal color, rash Musculoskeletal: No asymmetric calves Neurologic: AAOx3 Psychiatric: interacting appropriately, not anxious Lymph, Heme, Immunologic: no cervical LAD ICD10 Worksheet Patient Problems: Problems Problem Status Diagnosed Cellulitis Acute Fever Acute Acute systolic CHF (congestive heart failure) Acute Aspiration pneumonia Acute CAD (coronary artery disease), [place] coronary artery Acute COPD exacerbation Acute Cellulitis of left thigh Acute Chronic Disease Mgmt/Transitional Care Acute HCAP (healthcare-associated pneumonia) Acute Hospital-acquired pneumonia Acute Ischemic cardiomyopathy Acute Leukocytosis Acute Pneumonia Acute Right lower lobe pneumonia Acute Sepsis Acute Septic shock Acute Severe sepsis Acute Severe sepsis without septic shock Acute Tachycardia Acute
[2016-05-25] MEDS: PETROLAT,WHT/MIN OIL/SOD CHL 3.5 GM OPHT.OINT OP SCH ×2 (15:45→20:49)
[2016-05-25] MEDS ORDERED: WARFARIN SODIUM 4 MG TAB PO SCH (16:00)
[2016-05-25] MEDS: ATORVASTATIN CALCIUM 10 MG TAB PO SCH (20:40)
[2016-05-25] MEDS: LISINOPRIL 5 MG TAB PO SCH (20:42)
[2016-05-25] MEDS: MIRTAZAPINE 15 MG TAB PO SCH (20:48)
[2016-05-26 07:13] LABS: INR 3.8 (0.83-1.16); PROTIME(PATIENT) 38.1 SEC (12.0-15.0)
[2016-05-26] MEDS: CEFEPIME HCL 2 GM in D5W 100 ML IV SCH (08:14)
[2016-05-26] MEDS: IPRATROPIUM/ALBUTEROL 3 ML DEYVIAL IH SCH ×2 (08:14→11:16)
[2016-05-26] MEDS: TROLAMINE SALICYLATE 85 GM CRTUBE TP SCH ×2 (08:15→13:12)
[2016-05-26 08:52] VITALS: RESP 18; TEMP 97.5
[2016-05-26] MEDS: LORazepam 0.5 MG TAB PO SCH (09:36)
[2016-05-26] MEDS: GABAPENTIN 100 MG CAP PO SCH (09:37)
[2016-05-26] MEDS: metFORMIN HCL 500 MG TAB PO SCH (09:37)
[2016-05-26] MEDS: OXcarbazepine 300 MG TAB PO SCH (09:38)
[2016-05-26] MEDS: predniSONE 20 MG TAB PO SCH (09:38)
[2016-05-26] MEDS: glipiZIDE XL 5 MG TAB PO SCH (09:38)
[2016-05-26] MEDS: METOPROLOL SUCCINATE XR 25 MG TAB PO SCH (09:39)
[2016-05-26] MEDS: CYANO/VITAMIN B12 1000 MCG TAB PO SCH (09:39)
[2016-05-26] MEDS: POTASSIUM CL 20 MEQ TAB PO SCH (09:39)
[2016-05-26] MEDS: ASPIRIN EC 81 MG TAB PO SCH (09:40)
[2016-05-26] MEDS: SENNOSIDES/DOCUSATE SODIUM TAB PO SCH (09:43)
[2016-05-26] MEDS: NICOTINE 7 MG/24 HR PATCH TD SCH (09:44)
[2016-05-26] MEDS: PETROLAT,WHT/MIN OIL/SOD CHL 3.5 GM OPHT.OINT OP SCH (09:44)
[2016-05-26] MEDS: INSULIN LISPRO 100 UNIT/ML SC SCH ×2 (09:45→13:15)
[2016-05-26] MEDS: INSULIN GLARGINE 100 UNITS/ML SYRINGE SC SCH (09:47)
[2016-05-26] MEDS ORDERED: NICOTINE POLACRILEX 2 MG GUM B PRN (09:55)
--- NOTE | 2016-05-26 09:55 | PDIAF ---
- Diagnosis Diagnosis: pna Code Status: Do Not Resuscitate - Medication Management Discharge Medications: Medications to Continue on Transfer Acetaminophen [Tylenol 325mg (*)] 650 mg PO Q6 PRN 11/25/14 [Last Taken 05/23/16 ] Atorvastatin Calcium 10 mg PO HS 11/25/14 [Last Taken 05/22/16] Magnesium Hydroxide [Milk of Magnesia (*)] 30 ml PO DAILY PRN 11/25/14 [Last Taken Unknown] [place]-3 Fatty Acids/Fish Oil [Fish Oil 1,000 mg Capsule] 1 cap PO DAILY [Last Taken 05/22/16] Sennosides/Docusate Sodium [Senna-Docusate Sodium Tablet] 1 each PO BID [Last Taken 05/22/16] metFORMIN HCL [Glucophage 500 mg (*)] 500 mg PO BIDMEAL 11/25/14 [Last Taken 01/26] Aspirin EC [Aspirin EC 81 mg (*)] 81 mg PO DAILY #30 tab 12/07/14 [Last Taken ] Metoprolol Succinate Xr [Toprol Xl 25 mg (*)] 25 mg PO DAILY 01/08/15 [Last Taken 05/22/16] glipiZIDE XL [Glucotrol Xl] 5 mg PO DAILY 01/08/15 [Last Taken 05/22/16] OXcarbazepine [Trileptal 300mg (*)] 600 mg PO BID #0 tab 01/20/15 [Last Taken ] Cyanocobalamin [Vitamin B12 (*)] 1,000 mcg PO DAILY 01/21/15 [Last Taken ] Potassium Cl [Klor-Con 20 meq (*)] 20 meq PO DAILY 03/05/15 [Last Taken 05/22/16 ] Mirtazapine [Remeron] 15 mg PO HS 04/13/15 [Last Taken 05/22/16] Ergocalciferol [Vitamin D2 (*)] 50,000 unit PO Q30D 05/07/16 [Last Taken ] Gabapentin [Neurontin 100 MG (*)] 200 mg PO TID 05/07/16 [Last Taken 05/22/16] Insulin Detemir [Levemir] 14 unit SQ DAILY 05/07/16 [Last Taken 05/22/16] Ipratropium/Albuterol [Duoneb (*)] 3 ml IH Q6H PRN 05/07/16 [Last Taken 05/22/16 ] LORazepam [Ativan (*)] 0.25 mg PO BID 05/07/16 [Last Taken 04/24/16] Lisinopril [Zestril 5 mg (*)] 5 mg PO HS 05/07/16 [Last Taken 05/22/16] Mineral Oil/Petrolatum,White [Artificial Tears Eye Ointment] 1 yanick OP TID [Last Taken 05/22/16] Oxymetazoline HCl [Afrin] 1 spray EACHNARE DAILY 05/07/16 [Last Taken 05/22/16] Psyllium Seed (with Dextrose) [Fiber Powder] 397 gm PO DAILY PRN 05/07/16 [Last Taken 05/22/16] Trolamine Salicylate [Aspercreme] 1 yanick TP QID 05/07/16 [Last Taken 05/22/16] Warfarin Sodium [Coumadin 5MG (*)] 13.5 mg PO SUTUTHSA@16 05/07/16 [Last Taken 05/21/16] Warfarin Sodium [Coumadin 4MG (*)] 14 mg PO MOWEFR@16 05/23/16 [Last Taken 05/22] Cefepime HCl [Maxipime] 2 gm IV Q8HRS #0 vial 05/26/16 [Last Taken Unknown] predniSONE 20 mg PO DAILY #0 tablet 05/26/16 [Last Taken Unknown] Shadow Graph Weight Operator Antibiotics: cefepime 2 grams Q 8 hours Shadow Graph Weight Operator Antibiotic Stop Date: 05/31/16 Discharge Medications: Refer to the Discharge Home Medication list for PRN reason. - Orders Services needed: Registered Nurse, Physical Therapy, Occupational Therapy Diet Recommendation: no restrictions on diet Diet Texture: Regular Texture Diet, Thin Liquids, Meds Whole w/Liquids - Labs/Radiology PT/INR Date: 05/27/16 (hold warfarin 05/26 as INR 3.8 05/26) - Follow Up Care Current Providers and Referrals: CAYDEN EDOUARD [Primary Care Provider] - As per Instructions
[2016-05-26 12:19] VITALS: BP 124/76; PULSE 84; O2SAT 93
--- NOTE | 2016-05-26 20:31 | GDS ---
[f rep st] DISCHARGE SUMMARY DISCHARGE DIAGNOSES: 1. Health-care associated pneumonia. 2. Left lower extremity cellulitis. 3. Chronic hypoxic respiratory failure. 4. Chronic diastolic heart failure. 5. Diabetes mellitus. 6. History of deep venous thrombosis/pulmonary embolism. 7. History of traumatic brain injury. HISTORY OF PRESENT ILLNESS: This is a 61-year-old male with recent hospitalization preceding this p resentation for sepsis and pneumonia. The patient presented to the hospital on 05/23/2016 with comp laints of fever. For details of patient's presentation, please see the history and physical dated 0 05/23/2016. CONSULTATIVE SERVICES: Infectious Disease. HOSPITAL COURSE: 1. Healthcare-associated pneumonia. The patient did present with recurrent fevers from the [facility] facility. He has been previously diagnosed with strep A bacteremia treated with IV antibio tics. The decision was made to change his antibiotic to cefepime and continue the treatment course through 1 week duration. The patient had rapid improvement in both his energy and his fever did not recur. He will complete his antibiotic dosing on 05/31/2016. 2. Sepsis secondary to healthcare-associated pneumonia. The patient's vital signs, as well as labo ratory have normalized after presentation. As above, he will continue cefepime IV through 7. 3. Left lower extremity cellulitis without DVT. Patient's skin exam was markedly improved on the d ay of disposition. No asymmetric edema and near resolution of the erythema of his lower extremity. Again, he will complete a full course of cefepime. 4. Chronic diastolic heart failure. Patient was euvolemic on exam and continued on his home medica tions. 5. Diabetes mellitus. He was continued on his home medications. 6. History of DVT/PE. The patient was continued on his home dosing of warfarin. We are discharging him with the request that this medication be held on the evening of 05/26/2016 and INR checked yared rrow morning for appropriate re-initiation of his anticoagulation. DISCHARGE MEDICATIONS: Please reference medication reconciliation printed on 05/26/2016. PENDING STUDIES: Include blood cultures drawn 05/23/2016, which are preliminary no growth to date. FOLLOWUP APPOINTMENTS: Include with the [facility] facility physician. Post discharge with vt s primary care provider as well as Infectious Disease as needed for long-term management of his rece nt strep A bacteremia and sepsis. I spent greater than 30 minutes in the planning and coordination of this discharge. /[id number]/MODL
== END 2016-05-26 14:25 | DRG 871 ==
LOC: EDUNIT# → F1N 05:55
PROVIDERS: ADMIT Internal Medicine; ATTEND Internal Medicine
DX: A41.9 Sepsis, unspecified organism (principal); J18.8 Other pneumonia, unspecified organism; J96.11 Chronic respiratory failure with hypoxia; L03.116 Cellulitis of left lower limb; I50.32 Chronic diastolic (congestive) heart failure; E11.9 Type 2 diabetes mellitus without complications; E78.5 Hyperlipidemia, unspecified; F03.90 Unspecified dementia, unspecified severity, without behavioral disturbance, psychotic disturbance, mood disturbance, and anxiety; I10 Essential (primary) hypertension; Z86.711 Personal history of pulmonary embolism; Z86.718 Personal history of other venous thrombosis and embolism; Z87.820 Personal history of traumatic brain injury; Z72.0 Tobacco use; Z88.0 Allergy status to penicillin; Z66 Do not resuscitate
CPT/HCPCS: 92610-GN; G8996-GN-CI; G8997-GN-CI; J0692; J1815; J3370

== ENCOUNTER 2016-06-01 15:54 | Emergency (ER) | payer OTHER, MEDICAID ==
[2016-06-01 16:05] VITALS: RESP 16
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
[2016-06-01 16:45] LABS: ADD DIFF? YES; ADD MORPH? NO; ADD SCAN? NO; ATYPICAL LYMPHOCYTE FLAG 20 (0-99); FRAGMENT RBC FLAG 0 (0-99); HEMATOCRIT 40.8 % (40.0-51.0); HEMOGLOBIN 13.4 g/dL (13.7-17.5); LEFT SHIFT FLG 20 (0-99); LIPEMIA HEMOLYSIS FLAG 80 (0-99); MEAN CELL HEMOGLOBIN 26.8 pg (27.9-34.1); MEAN CELL HEMOGLOBIN CONCENTR. 32.8 g/dL (32.4-36.7); MEAN CELL VOLUME 81.6 fL (81.5-99.8); PLATELET CLUMPS FLAG 10 (0-99); PLATELET COUNT 248 10^3/uL (150-400); RED CELL DISTRIBUTION WIDTH 14.9 % (11.5-15.2)
[2016-06-01 16:50] LABS: INR 1.04 (0.83-1.16); PROTIME(PATIENT) 13.5 SEC (12.0-15.0)
[2016-06-01 16:51] LABS: APTT 27.8 SEC (23.0-38.0)
[2016-06-01 16:55] LABS: ANION GAP 7 mEq/L (8-16); BILIRUBIN,TOTAL 0.6 mg/dL (0.1-1.4); CALCIUM 8.8 mg/dL (8.5-10.4); CARBON DIOXIDE 30 mEq/l (22-31); CHLORIDE 95 mEq/L (97-110); CREATININE 0.6 mg/dL (0.7-1.3); GLOMERULAR FILTRATION RATE > 60; GLUCOSE 76 mg/dL (70-100); POTASSIUM 4.6 mEq/L (3.5-5.2); SODIUM 132 mEq/L (134-144)
[2016-06-01 17:17] LABS: PLATELET ESTIMATE ADEQUATE (ADEQ)
[2016-06-01] MEDS ORDERED: ENOXAPARIN 100 MG/ML SYR SC ONE (17:30)
[2016-06-01 19:08] VITALS: BP 161/92; PULSE 78; TEMP 99; O2SAT 95
== END 2016-06-01 19:05 | disposition home or self-care (01) ==
LOC: EDUNIT#
DX: I82.412 Acute embolism and thrombosis of left femoral vein (principal); F17.200 Nicotine dependence, unspecified, uncomplicated; I10 Essential (primary) hypertension; E11.9 Type 2 diabetes mellitus without complications; I50.9 Heart failure, unspecified; J44.9 Chronic obstructive pulmonary disease, unspecified; Z79.01 Long term (current) use of anticoagulants; Z79.4 Long term (current) use of insulin; Z79.82 Long term (current) use of aspirin
CPT/HCPCS: 93971; 96372; 99285; J1650

== ENCOUNTER 2016-06-02 16:00 | Inpatient (IN) | payer OTHER, MEDICAID ==
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
[2016-06-02 16:38] LABS: % IMMATURE GRANULYOCYTES 2.5 % (0.0-1.1); ABSOLUTE IMMATURE GRANULOCYTES 0.28 10^3/uL (0.00-0.10); ADD DIFF? NO; ADD MORPH? NO; ADD SCAN? NO; ATYPICAL LYMPHOCYTE FLAG 20 (0-99); FRAGMENT RBC FLAG 0 (0-99); HEMATOCRIT 39.3 % (40.0-51.0); HEMOGLOBIN 12.9 g/dL (13.7-17.5); LEFT SHIFT FLG 20 (0-99); LIPEMIA HEMOLYSIS FLAG 80 (0-99); MEAN CELL HEMOGLOBIN 26.7 pg (27.9-34.1); MEAN CELL HEMOGLOBIN CONCENTR. 32.8 g/dL (32.4-36.7); MEAN CELL VOLUME 81.4 fL (81.5-99.8); MEAN PLATELET VOLUME 9.6 fL (8.7-11.7); PLATELET CLUMPS FLAG 0 (0-99); PLATELET COUNT 216 10^3/uL (150-400); RED BLOOD CELL COUNT 4.83 10^6/uL (4.40-6.38); RED CELL DISTRIBUTION WIDTH 14.7 % (11.5-15.2)
[2016-06-02] MEDS ORDERED: DAPTOmycin 600 MG in NS 100 ML IV ONE (16:40)
[2016-06-02 16:46] LABS: INR 1.1 (0.83-1.16); PROTIME(PATIENT) 14.1 SEC (12.0-15.0)
[2016-06-02 16:47] LABS: APTT 32.8 SEC (23.0-38.0)
[2016-06-02 16:52] LABS: ALANINE AMINOTRANSFERASE 33 IU/L (21-72); ALBUMIN 3.5 g/dL (3.5-5.0); ALKALINE PHOSPHATASE 70 IU/L (38-126); ANION GAP 7 mEq/L (8-16); ASPARTATE AMINOTRANSFERASE 21 IU/L (17-59); BILIRUBIN,TOTAL 0.5 mg/dL (0.1-1.4); BILIRUBIN-CONJUGATED 0.3 mg/dL (0.0-0.5); BILIRUBIN-UNCONJUGATED 0.2 mg/dL (0.0-1.1); CALCIUM 8.5 mg/dL (8.5-10.4); CARBON DIOXIDE 29 mEq/l (22-31); CHLORIDE 93 mEq/L (97-110); CREATININE 0.5 mg/dL (0.7-1.3); GLOMERULAR FILTRATION RATE > 60; GLUCOSE 118 mg/dL (70-100); POTASSIUM 4.3 mEq/L (3.5-5.2); SODIUM 129 mEq/L (134-144); TOTAL PROTEIN 6.8 g/dL (6.3-8.2)
[2016-06-02] MEDS ORDERED: ONDANSETRON 4 MG/2 ML VIAL IVP PRN (17:37)
[2016-06-02] MEDS ORDERED: ACETAMINOPHEN 325 MG TAB PO PRN (17:37)
[2016-06-02] MEDS ORDERED: IPRATROPIUM/ALBUTEROL 3 ML DEYVIAL IH PRN (17:37)
[2016-06-02] MEDS ORDERED: D50W 25 GM/50 ML SYR IVP PRN (17:39)
--- NOTE | 2016-06-02 18:12 | PCMIDPN ---
Assessment/Plan: Assessment/Plan: * VRE bacteremia: 2/2 sets of blood cultures positive for VRE with growth in less than 24 hours. Findings consistent with true bacteremia. No specific source other than potential for PICC associated given indwelling PICC line for course of cefepime he recently completed to treat healthcare associated pneumonia. He does not currently have any urinary symptoms although this would be other potential source. Pelvic CT in April showed evidence of diverticulosis which raises question of possible diverticulitis. However, no significant abdominal pain present. Repeat blood cultures were obtained prior to initiation of daptomycin. Will check UA and urine culture to assess for urinary source. Plan echocardiogram to assess for endocarditis. Will treat with daptomycin 6 milligrams/kilogram IV Q 24 hours. Check baseline CPK. Will need to hold atorvastatin while on daptomycin to avoid increased risk of myositis. Likely to require PICC line removal as component of his therapy unless other source identified. Time spent, greater than 35 minutes, of which greater than half was spent in coordination of care related to VRE bacteremia. 06/02/16 18:08 06/02/16 18:11 06/02/16 18:19 06/02/16 18:19 Subjective: Received phone call from Emergency Department earlier today that patient had 2 of 2 sets of blood cultures drawn yesterday positive for Enterococcus. Advised that patient be admitted to hospital based on this finding. Patient was seen in the ED yesterday and diagnosed with left lower extremity DVT. Currently he does not note fever, chills or night sweats. He was recently hospitalized for treatment of healthcare associated pneumonia for which he was completing 7 days of cefepime via a right upper extremity PICC line. He does not have any pain, swelling or drainage from his PICC line site. Denies any dysuria, urgency or frequency. No change in his chronic smoker's cough. He feels like left lower extremity has improved with less pain and redness. Prior history also notable for group A Streptococcus bacteremia in April associated with left lower extremity cellulitis. Past medical/past surgical/medications/allergies all reviewed from recent hospitalizations. He has been followed by our service on both recent hospitalizations. Social history: Patient continues to smoke. He is a resident of [place]. Objective: Vital Signs Temp Pulse Resp BP Pulse Ox 37 C 91 16 163/95 H 96 06/02/16 16:06 06/02/16 16:06 06/02/16 16:06 06/02/16 16:06 06/02/16 16:06 Blood cultures 05/14 sets 06/01/2016 VRE Laboratory Tests 06/02/16 06/02/16 16:30 16:30 WBC 11.40 H Hct 39.3 L Plt Count 216 Neut % (Auto) 70.1 Lymph % (Auto) 12.7 L Total Bilirubin 0.5 AST 21 ALT 33 Alkaline Phosphatase 70 Ultrasound of left lower extremity on 06/01/2016 with femoral DVT present - Physical Exam General Appearance: alert, no apparent distress EENT: No thrush, No conjunctival petechiae Respiratory: wheezing (Diffuse bilateral), No respiratory distress Neck: supple Cardiac/Chest: regular rate, rhythm, No systolic murmur (Distant heart tones) Extremities: inflammation (Left lower extremity with some residual erythema induration over medial thigh and lower leg with minimal tenderness) Abdomen: non-tender, No distended Skin: No embolic lesions ICD10 Worksheet Patient Problems: Problems Problem Status Onset Chronic Disease Mgmt/Transitional Care Acute HCAP (healthcare-associated pneumonia) Acute Ischemic cardiomyopathy Acute Acute systolic CHF (congestive heart failure) Acute CAD (coronary artery disease), [place] coronary artery Acute Leukocytosis Acute Aspiration pneumonia Acute Fever Acute Right lower lobe pneumonia Acute Sepsis Acute Severe sepsis without septic shock Acute Hospital-acquired pneumonia Acute COPD exacerbation Acute Severe sepsis Acute Tachycardia Acute Pneumonia Acute Cellulitis of left thigh Acute Septic shock Acute Cellulitis Acute VRE (vancomycin resistant enterococcus) culture positive Acute
--- NOTE | 2016-06-02 18:34 | GHP ---
[f rep st] HISTORY AND PHYSICAL DATE OF ADMISSION: 06/02/2016 CHIEF COMPLAINT: Positive blood culture. HISTORY: The patient is a 61-year-old male who was just [facility] when he was treated for healthcare-associated pneumonia, and he was discharged to [facility] 1 week of IV cefepime. He re-presented to the emergency room yesterday when the staff noted incre asing left lower extremity redness and swelling. In the ER yesterday, an ultrasound was positive fo r DVT. He has a known history of recurrent PE and DVT and it seems there was a medication error, as when he was discharged from the hospital 6 days ago, they were only supposed to hold his warfarin f or 1 day, but it looks like it never got restarted because he came in with a normal INR. He was dis charged back to [facility] on Lovenox and re-initiation of warfarin. There was reportedly fever at [facility] and a question of cellulitis. He was not discharged on antibiotics because he was diagno sed with DVT. His blood cultures drawn yesterday, however, have come back positive for VRE in all [facility], so he was called to return to the emergency room. The patient does not have any feeling in his lower extremities and is chronically wheelchair bound s o cannot give any history regarding the lower extremity symptoms. He does not know how long the red ness has been there. He otherwise feels relatively well. PAST MEDICAL HISTORY: 1. COPD with chronic respiratory failure on 3 L. 2. Coronary artery disease, status post stent. 3. Ischemic cardiomyopathy with systolic congestive heart failure. EF previously 15% but on most r ecent echo improved to 50%. 4. Diabetes type 2. 5. Recurrent PE and DVT. 6. Traumatic brain injury with seizure disorder. 7. Stroke with complete left hemiparesis. He also has complete paralysis and loss of sensation bel ow the waist and is wheelchair bound. 8. Dementia. MEDICATIONS: Please see computer record for full detailed list. ALLERGIES: Levaquin and penicillin. SOCIAL HISTORY: He has been a smoker for 59 years and continues to smoke. No alcohol. Lives at [facility]. He has a common-law who lives in [place] who is his decision maker. He requests fu ll DNR. He is wheelchair bound at baseline. He is paralyzed in 3 limbs and only has use of his rig ht upper extremity. REVIEW OF SYSTEMS: Complete review of systems obtained. Review of systems is negative regarding co nstitutional, HEENT, GI, pulmonary, cardiovascular, , hematology, skin, musculoskeletal, endocrine , psych, except for positives and negatives as in HPI. FAMILY HISTORY: Reviewed, noncontributory to presenting complaint. PHYSICAL EXAMINATION: GENERAL: Well-developed, well-nourished male, in no acute distress. VITAL S IGNS: Temperature is 37.0, pulse 91, blood pressure 163/95, saturating 96% on 2 L. HEENT: Eye exa mination: Normal conjunctivae. Pupils reactive to light. ENT normal ears and nose. Hearing intac t. Normal lips and teeth. Oropharynx moist. NECK: Trachea midline. No thyromegaly. CHEST: Nor mal respiratory effort. LUNGS: Some scattered wheezes. CARDIOVASCULAR: Regular rhythm. No murmu r. Lower extremity edema on the left with extensive erythema over the entire calf and extending up above the knee towards the groin. ABDOMEN: Soft, nontender. No hepatosplenomegaly. SKIN: As dis cussed above. Left leg with significant erythema, much different than the right leg. No open lesio ns on the feet. Warm to the touch. No sensation. MUSCULOSKELETAL: No cyanosis or clubbing. He h as complete left hemiparesis, 0/5 strength left upper and left lower extremity. Also, right lower e xtremity appears to have 0/5 strength. He states this is baseline. He has normal 5/5 strength in h is right upper extremity. NEURO: Cranial nerves intact. Decreased sensation below the waist. PSY CH ASSESSMENT: He is alert and oriented x3. Appears to have normal mood and affect. Normal judgme nt and insight. Somewhat of a poor historian. LABORATORY DATA: White count 11.4, hematocrit 39.3, platelets 216. Sodium 129, potassium 4.3, chlo ride 93, bicarb 29, BUN 9, creatinine 0.5, glucose 118. LFTs are normal. Lipase is 175. INR is 1. 1. This case was discussed with Dr. Donnelly. The emergency room called the patient back to the ER today when blood cultures from yesterday's ER visit came back positive for VRE. Reviewed medical records including recent hospitalization with discharge 6 days ago. At that time, Infectious Disease was fo lloflog. He was discharged to complete another week of cefepime. Blood cultures were negative. ASSESSMENT/PLAN: 1. VRE sepsis. He appears to have a cellulitis of the left lower extremity, and I did not see any other obvious source. Infectious Disease recommends IV daptomycin. They will consult. We will graciela ck an echocardiogram to evaluate for endocarditis. 2. Left lower extremity cellulitis. Daptomycin should adequately cover this. 3. Left lower extremity deep vein thrombosis. He appears to be quite hypercoagulable, as he has de veloped a DVT while just being off warfarin for 1 week. We are reinitiating with therapeutic doses of Lovenox until his INR is greater than 2 again on the warfarin. 4. Hospital-acquired pneumonia. He has just completed a course of cefepime. We will check a [facility] chest x-ray. 5. Chronic obstructive pulmonary disease with chronic respiratory failure, baseline 3 L of oxygen. We will prescribe nebulizers as needed. He continues to smoke and will prescribe a nicotine patch. 6. Traumatic brain injury and history of stroke with complete left hemiparesis, as well as 0/5 stre ngth to the right lower extremity. He states all this is baseline. He is wheelchair bound at [facility] with only use of his right upper extremity. He has no sensation below the waist so cannot give much of a history regarding pain in the leg. 7. Chronic systolic congestive heart failure. Ejection fraction previously as low as 15%, more rec ently up to 50%. He appears to be well compensated. We will reconcile home medications when availa ble. 8. Coronary artery disease with previous stents. Again, typical regimen for his coronary artery di sease will be clarified and resumed. 9. Diabetes type 2. We will prescribe insulin sliding scale. CODE STATUS: He requests DNR. ADMISSION STATUS: 1. We will admit to inpatient as he is medically complex. Anticipate greater than 2 midnights requ ired. 2. DVT prophylaxis. As discussed above, anticoagulation being re-initiated for acute DVT; therefor e, he is high risk. /[id number]/MODL
[2016-06-02] MEDS ORDERED: PSYLLIUM METAMUCIL 1 PKT PO PRN (22:24)
[2016-06-02] MEDS: INSULIN REGULAR HUMAN 100 UNIT/ML SC SCH (23:33)
[2016-06-03 01:04] LABS: COLOR YELLOW; LEUKOCYTE ESTERASE,URINE NEGATIVE (NEGATIVE); NITRITE,URINE NEGATIVE (NEGATIVE)
[2016-06-03 01:25] LABS: MUCUS TRACE /lpf (NONE-1+)
[2016-06-03] MEDS: ENOXAPARIN 100 MG/ML SYR SC SCH ×3 (01:49→20:08)
[2016-06-03] MEDS: INSULIN GLARGINE 100 UNITS/ML SYRINGE SC SCH ×2 (01:49→22:28)
[2016-06-03] MEDS: NS 1,000 ML IV SCH (02:00)
[2016-06-03] MEDS: TROLAMINE SALICYLATE 85 GM CRTUBE TP SCH ×4 (06:29→22:30)
[2016-06-03 07:06] LABS: ADD DIFF? YES; ADD MORPH? NO; ADD SCAN? NO; ATYPICAL LYMPHOCYTE FLAG 10 (0-99); FRAGMENT RBC FLAG 0 (0-99); HEMATOCRIT 39.9 % (40.0-51.0); HEMOGLOBIN 13.1 g/dL (13.7-17.5); LEFT SHIFT FLG 30 (0-99); LIPEMIA HEMOLYSIS FLAG 80 (0-99); MEAN CELL HEMOGLOBIN CONCENTR. 32.8 g/dL (32.4-36.7); MEAN CELL VOLUME 82.1 fL (81.5-99.8); MEAN PLATELET VOLUME 10.1 fL (8.7-11.7); PLATELET CLUMPS FLAG 0 (0-99); PLATELET COUNT 215 10^3/uL (150-400); RED BLOOD CELL COUNT 4.86 10^6/uL (4.40-6.38); RED CELL DISTRIBUTION WIDTH 14.8 % (11.5-15.2)
[2016-06-03 07:10] LABS: INR 1.1 (0.83-1.16); PROTIME(PATIENT) 14.1 SEC (12.0-15.0)
[2016-06-03 07:34] LABS: ANION GAP 5 mEq/L (8-16); CALCIUM 8.4 mg/dL (8.5-10.4); CARBON DIOXIDE 30 mEq/l (22-31); CHLORIDE 96 mEq/L (97-110); CREATININE 0.5 mg/dL (0.7-1.3); GLOMERULAR FILTRATION RATE > 60; GLUCOSE 93 mg/dL (70-100); POTASSIUM 4.4 mEq/L (3.5-5.2); SODIUM 131 mEq/L (134-144)
[2016-06-03 07:45] LABS: PLATELET ESTIMATE ADEQUATE (ADEQ)
[2016-06-03] MEDS: INSULIN REGULAR HUMAN 100 UNIT/ML SC SCH ×4 (08:10→22:29)
[2016-06-03] MEDS: GABAPENTIN 100 MG CAP PO SCH ×3 (08:24→22:29)
[2016-06-03] MEDS: CYANO/VITAMIN B12 1000 MCG TAB PO SCH (08:25)
[2016-06-03] MEDS: METOPROLOL SUCCINATE XR 25 MG TAB PO SCH (08:25)
[2016-06-03] MEDS: ASPIRIN EC 81 MG TAB PO SCH (08:25)
[2016-06-03] MEDS: POTASSIUM CL 20 MEQ TAB PO SCH (08:25)
[2016-06-03] MEDS: OXcarbazepine 300 MG TAB PO SCH ×2 (08:26→20:09)
[2016-06-03] MEDS: SENNOSIDES/DOCUSATE SODIUM TAB PO SCH ×2 (08:26→20:09)
[2016-06-03] MEDS: NICOTINE 21 MG/24 HR PATCH TD SCH (08:38)
[2016-06-03] MEDS: glipiZIDE XL 5 MG TAB PO SCH (10:13)
[2016-06-03] MEDS: PETROLAT,WHT/MIN OIL/SOD CHL 3.5 GM OPHT.OINT OP SCH ×3 (10:19→22:31)
--- NOTE | 2016-06-03 10:53 | ECHO ---
[id number] + + [address] : : [place] [address] : : [phone] + Adult Echocardiographic Report + ----+ :Name: Keyla MELGARmathew Date: 06/03/2016 07:46 AM : : Hospital Admission Number: [id number] Location: 151: :: 1955 Gender: Male Height: 71 in : :Age: 61 yrs Race: WH Weight: 214 lb : :Reason For Study: Rule out endocarditis : : BSA: 2.2 meters2 : + ----+ MMode/2D Measurements \T\ Calculations LVIDd: 6.0 cm EDV(Teich): 181.6 ml Ao root diam: 3.9 cm LA dimension: 3.3 cm Normal Measurement Values: + + :LVIDd (3.5-5.7cm) IVSd (0.6-1.1cm) LVPWd (0.6-1.1cm) Aortic Root (2.0-3.7cm)Left Atrium (1.5-4.0cm): :LV Vol(d) (76-115ml) LV Vol(s) (29-48ml) Ejec Fraction (50-65%)PV Kunal (0.6- 1.2m/s) TV Kunal (0.4-1.0m/s) : :MV E Kunal (0.8-1.0m/s)MV A Kunal (0.3-1.0m/s)LVOT Kunal (0.7-1.2m/s) Asc Ao Kunal ( 0.9-1.8m/s) : + + Doppler Measurements \T\ Calculations MV E max kunal: 50.8 cm/sec Ao mean P.7 mmHg MV A max kunal: 72.6 cm/sec Ao V2 mean: 59.0 cm/sec MV E/A: 0.70 Ao V2 VTI: 14.5 cm Left Ventricle The left ventricle is mildly dilated. There is normal left ventricular wall thickness. Right Ventricle The right ventricle is normal size. Mitral Valve The mitral valve is normal in structure and function. There is no evidence of mitral valve prolapse. There is no mitral valve stenosis. Tricuspid Valve Normal tricuspid valve. Aortic Valve The aortic valve opens well. There is no aortic stenosis. Pulmonic Valve The pulmonic valve is not well visualized. Great Vessels The aortic root is normal size. Pericardium/Pleural There is no pericardial effusion. Conclusion A complete two-dimensional transthoracic echocardiogram was performed (2D, M-mode, Doppler and color flow Doppler). Technically limited study (pt would not turn on side). Suggest SADE if clinically indicated. The left ventricle is mildly dilated. Final Reading Physician: Cl Borrego signed on 06/03/2016 10:51 AM Ordering Physician: Radha Zhong Performed By: Saba Boykin RDCS
[2016-06-03] MEDS ORDERED: IPRATROPIUM/ALBUTEROL 3 ML DEYVIAL IH PRN (11:31)
--- NOTE | 2016-06-03 11:37 | HOSPPROG ---
Hospitalist Progress Note Assessment/Plan: 61 yo M well known to me w recent dvt and VRE bacteremia VRE bacteremia: unclear source pcn allergic;dapto started (statin dc'd) repeat cx drawm, echo done dvt: treatment doses LMWH, warfarin follow inr daily dm: continue lantus blood sugars at goal cad: statin on hold on asa and bb systolic chf: ef has nearly normalized euvolemic dispo: inpt proph: therapeutically anticoagulated Subjective: feels better than yesterday. no bm in several days. case d/w dr ramos Objective: Vital Signs Temp Pulse Resp BP Pulse Ox 37.1 C 76 18 164/94 H 98 06/03/16 11:09 06/03/16 11:09 06/03/16 11:09 06/03/16 11:09 06/03/16 11:09 Laboratory Results 06/03/16 06:50 06/03/16 06:50 06/02/16 06/03/16 06/04/16 05:59 05:59 05:59 Intake Total 1000 1000 Output Total 500 Balance 500 1000 PT 14.1 SEC (12.0-15.0) 06/03/16 06:50 INR 1.10 (0.83-1.16) 06/03/16 06:50 - Physical Exam Constitutional: no apparent distress, appears nourished Eyes: PERRL, anicteric sclera Ears, Nose, Mouth, Throat: moist mucous membranes, hearing normal Cardiovascular: regular rate and rhythym, no murmur, rub, or gallop Respiratory: no respiratory distress, No no rales or rhonchi Gastrointestinal: normoactive bowel sounds, soft, non-tender abdomen, No guarding, No rebound Genitourinary: no bladder fullness, No milian in urethra Skin: warm, normal color, other (LLE w erythema, no fluctuance) Musculoskeletal: No full muscle strength Neurologic: AAOx3 ICD10 Worksheet Patient Problems: Problems Problem Status Onset VRE (vancomycin resistant enterococcus) culture positive Acute VRE (vancomycin-resistant Enterococci) Acute ~06/01/16 Acute systolic CHF (congestive heart failure) Acute Aspiration pneumonia Acute CAD (coronary artery disease), [place] coronary artery Acute COPD exacerbation Acute Cellulitis Acute Cellulitis of left thigh Acute Chronic Disease Mgmt/Transitional Care Acute Fever Acute HCAP (healthcare-associated pneumonia) Acute Hospital-acquired pneumonia Acute Ischemic cardiomyopathy Acute Leukocytosis Acute Pneumonia Acute Right lower lobe pneumonia Acute Sepsis Acute Septic shock Acute Severe sepsis Acute Severe sepsis without septic shock Acute Tachycardia Acute
--- NOTE | 2016-06-03 13:01 | PCMIDPN ---
Assessment/Plan: # VRE bacteremia suspect source is picc line, LLE without erythema today, UA neg /no urinary sx, CXR from admit reviewed and without infiltrate. --PICC line removal --repeat blood cx in AM 06/04 --contact isolation for VRE --will eventually need another PICC line to complete therapy for VRE bacteremia. Length of therapy and need for ECHO based on clearance of blood cultures. May need to treat longer in light of DVT # left femoral vein DVT Meds Daptomycin 600mg IV daily, #2 microbiology 06/01 blood cx 05/14 VRE 06/02 blood cx 04/[address] Adhikari Subjective: no specific c/o, wants nicotine gum denies diarrhea Objective: Vital Signs Temp Pulse Resp BP Pulse Ox 37.1 C 76 18 164/94 H 98 06/03/16 11:09 06/03/16 11:09 06/03/16 11:09 06/03/16 11:09 06/03/16 11:09 Laboratory Results 06/03/16 06:50 06/03/16 06:50 06/02/16 06/03/16 06/04/16 05:59 05:59 05:59 Intake Total 1000 2000 Output Total 500 Balance 500 2000 - Physical Exam General Appearance: alert, no apparent distress, obese Respiratory: wheezing, bronchial breath sounds, No accessory muscle use Neck: supple Cardiac/Chest: regular rate, rhythm Extremities: pedal edema, No inflammation Abdomen: normal bowel sounds, non-tender, soft Skin: No embolic lesions Neuro/Psych: alert, normal mood/affect, oriented x 3 - Line/s RUE PICC Lines: No drainage, No erythema ICD10 Worksheet Patient Problems: Problems Problem Status Onset VRE (vancomycin resistant enterococcus) culture positive Acute VRE (vancomycin-resistant Enterococci) Acute ~06/01/16 Acute systolic CHF (congestive heart failure) Acute Aspiration pneumonia Acute CAD (coronary artery disease), [place] coronary artery Acute COPD exacerbation Acute Cellulitis Acute Cellulitis of left thigh Acute Chronic Disease Mgmt/Transitional Care Acute Fever Acute HCAP (healthcare-associated pneumonia) Acute Hospital-acquired pneumonia Acute Ischemic cardiomyopathy Acute Leukocytosis Acute Pneumonia Acute Right lower lobe pneumonia Acute Sepsis Acute Septic shock Acute Severe sepsis Acute Severe sepsis without septic shock Acute Tachycardia Acute
[2016-06-03] MEDS: POLYETHYLENE GLYCOL 3350 17 GM PKT PO SCH ×2 (16:39→20:10)
[2016-06-03] MEDS: WARFARIN SODIUM 7.5 MG TAB PO SCH (16:40)
[2016-06-03] MEDS: WARFARIN SODIUM 3 MG TAB PO SCH (16:41)
[2016-06-03] MEDS: DAPTOmycin 600 MG in NS 100 ML IV SCH (16:59)
[2016-06-03] MEDS: NICOTINE POLACRILEX 2 MG GUM B PRN (20:09)
[2016-06-03] MEDS: LISINOPRIL 5 MG TAB PO SCH (20:09)
[2016-06-03] MEDS ORDERED: ATORVASTATIN CALCIUM 10 MG TAB PO SCH (21:00)
[2016-06-03] MEDS: MIRTAZAPINE 15 MG TAB PO SCH (22:29)
[2016-06-04] MEDS: NS 1,000 ML IV SCH (00:26)
[2016-06-04] MEDS: TROLAMINE SALICYLATE 85 GM CRTUBE TP SCH ×4 (04:35→20:58)
[2016-06-04] MEDS: NICOTINE POLACRILEX 2 MG GUM B PRN (04:36)
[2016-06-04 06:14] LABS: INR 1.03 (0.83-1.16); PROTIME(PATIENT) 13.4 SEC (12.0-15.0)
--- NOTE | 2016-06-04 08:24 | WOCRNPDOC ---
WOCRN Advanced Assessment Note - Skin Integrity Problem, Advanced Assess Groin Dressing Type: Open to Air Exudate Amount: None Exudate Characteristic(s): None Integumentary Issue Intervention: Lotion/Cream Applied (clear zinc) Shanti Wound Tissue: Intact Shanti Wound Swelling: None Wound Bed Color: Red Skin Integrity Problem Comment: Raw, denuded skin noted in bilateral groin folds , worse on right than left. Patient presently has a condom catheter, which should mitigate some of the moisture to this area. Advised applying clear zinc cream w/ shanti-care to protect skin. Bilateral Buttock Incont Assoc Dermatitis Dressing Type: Open to Air Exudate Amount: None Exudate Characteristic(s): None Integumentary Issue Intervention: Lotion/Cream Applied (clear zinc) Shanti Wound Tissue: Blanching Shanti Wound Swelling: None Wound Bed Color: Red Wound Bed Constitution: Smooth Tissue Site Odor: None Site Measurement - Head-to-Toe Length X Width X Depth (cm): 2cmx1.6cmx0.1cm Skin Integrity Problem Comment: Red, raw, denuded skin noted across buttocks, consistent in appearance w/ incontinence-associated dermatitis. There is a small , smooth-tissue filled lesion on the R medial buttock, with raw, friable margins indicative of friction injury. Skin across buttocks is presently blanching. Patient c/o hip pain when repositioned on his side for assessment, and needs reminder and reinforcement to off-load his buttocks side to side to mitigate heat/moisture/friction. Sent tube of Clear Zinc cream down to 1N to avril on patient's buttocks and groin w/ shanti-care. Report givent o Staff RNs Tosha and Felicitas.
[2016-06-04] MEDS: INSULIN REGULAR HUMAN 100 UNIT/ML SC SCH ×4 (09:06→21:46)
[2016-06-04] MEDS: ENOXAPARIN 100 MG/ML SYR SC SCH ×2 (09:32→20:39)
[2016-06-04] MEDS: GABAPENTIN 100 MG CAP PO SCH ×3 (09:33→20:38)
[2016-06-04] MEDS: OXcarbazepine 300 MG TAB PO SCH ×2 (09:33→20:38)
[2016-06-04] MEDS: glipiZIDE XL 5 MG TAB PO SCH (09:33)
[2016-06-04] MEDS: SENNOSIDES/DOCUSATE SODIUM TAB PO SCH ×2 (09:33→20:53)
[2016-06-04] MEDS: METOPROLOL SUCCINATE XR 25 MG TAB PO SCH (09:33)
[2016-06-04] MEDS: POTASSIUM CL 20 MEQ TAB PO SCH (09:34)
[2016-06-04] MEDS: CYANO/VITAMIN B12 1000 MCG TAB PO SCH (09:34)
[2016-06-04] MEDS: ASPIRIN EC 81 MG TAB PO SCH (09:34)
[2016-06-04] MEDS: POLYETHYLENE GLYCOL 3350 17 GM PKT PO SCH ×3 (09:36→20:40)
[2016-06-04] MEDS: PETROLAT,WHT/MIN OIL/SOD CHL 3.5 GM OPHT.OINT OP SCH ×3 (09:36→20:39)
[2016-06-04] MEDS: NICOTINE 21 MG/24 HR PATCH TD SCH (09:53)
--- NOTE | 2016-06-04 10:15 | HOSPPROG ---
Hospitalist Progress Note Assessment/Plan: 61 yo M well known to me w recent dvt and VRE bacteremia VRE bacteremia: PICC (now out) most likely source repeat cx drawn this AM echo (poor quality SADE) not helpful pcn allergic; dapto started (statin dc'd) repeat cx drawm, echo done dvt: treatment doses LMWH, warfarin follow inr daily dm: continue lantus blood sugars at goal low this AM decrease lantus is low 06/05 cad: statin on hold on asa and bb systolic chf: ef has nearly normalized euvolemic dispo: inpt proph: therapeutically anticoagulated risk: high Subjective: afebrile, picc out. case d/w dr ramos Objective: Vital Signs Temp Pulse Resp BP Pulse Ox 36.7 C 71 18 127/86 H 96 06/04/16 08:30 06/04/16 09:33 06/04/16 08:30 06/04/16 09:33 06/04/16 08:30 Laboratory Results 06/03/16 06:50 06/03/16 06:50 06/03/16 06/04/16 06/05/16 05:59 05:59 05:59 Intake Total 1000 6365 Output Total 500 2850 Balance 500 3515 PT 13.4 SEC (12.0-15.0) 06/04/16 05:00 INR 1.03 (0.83-1.16) 06/04/16 05:00 - Physical Exam Constitutional: no apparent distress, appears nourished Eyes: PERRL, anicteric sclera Ears, Nose, Mouth, Throat: moist mucous membranes, hearing normal Cardiovascular: regular rate and rhythym, no murmur, rub, or gallop, No systolic murmur Respiratory: no respiratory distress, no rales or rhonchi Gastrointestinal: normoactive bowel sounds, soft, non-tender abdomen Genitourinary: No milian in urethra Skin: warm, normal color Musculoskeletal: full muscle strength, no muscle tenderness Neurologic: AAOx3, sensation intact bilaterally Psychiatric: interacting appropriately ICD10 Worksheet Patient Problems: Problems Problem Status Onset VRE (vancomycin resistant enterococcus) culture positive Acute VRE (vancomycin-resistant Enterococci) Acute ~06/01/16 Acute systolic CHF (congestive heart failure) Acute Aspiration pneumonia Acute CAD (coronary artery disease), [place] coronary artery Acute COPD exacerbation Acute Cellulitis Acute Cellulitis of left thigh Acute Chronic Disease Mgmt/Transitional Care Acute Fever Acute HCAP (healthcare-associated pneumonia) Acute Hospital-acquired pneumonia Acute Ischemic cardiomyopathy Acute Leukocytosis Acute Pneumonia Acute Right lower lobe pneumonia Acute Sepsis Acute Septic shock Acute Severe sepsis Acute Severe sepsis without septic shock Acute Tachycardia Acute
[2016-06-04] MEDS: WARFARIN SODIUM 3 MG TAB PO SCH (17:54)
[2016-06-04] MEDS: DAPTOmycin 600 MG in NS 100 ML IV SCH (17:55)
[2016-06-04] MEDS: WARFARIN SODIUM 7.5 MG TAB PO SCH (17:55)
--- NOTE | 2016-06-04 20:05 | PCMIDPN ---
Assessment/Plan: Assessment/Plan: * VRE bacteremia: Most likely PICC associated bacteremia as no other clear source present. PICC line removed yesterday. Repeat blood cultures are pending to document clearing of bacteremia. If fails to clear bacteremia, may ultimately require transesophageal echocardiogram. Continue daptomycin. 06/04/16 20:03 Subjective: Complains of back pain. Objective: Vital Signs Temp Pulse Resp BP Pulse Ox 36.8 C 86 19 159/98 H 90 L 06/04/16 15:02 06/04/16 15:02 06/04/16 15:02 06/04/16 15:02 06/04/16 15:02 Laboratory Results 06/03/16 06:50 06/03/16 06:50 06/03/16 06/04/16 06/05/16 05:59 05:59 05:59 Intake Total 1000 6365 1000 Output Total 500 2850 1800 Balance 500 3515 -800 Daptomycin # 3 Blood cultures x2 06/04/2016 pending - Physical Exam General Appearance: alert, no apparent distress EENT: No conjunctival petechiae Respiratory: wheezing (Bilaterally) Cardiac/Chest: regular rate, rhythm, No systolic murmur Abdomen: non-tender, No distended Back: other (Unable to examine as patient cannot sit up even with assistance) Skin: No embolic lesions ICD10 Worksheet Patient Problems: Problems Problem Status Onset VRE (vancomycin resistant enterococcus) culture positive Acute VRE (vancomycin-resistant Enterococci) Acute ~06/01/16 Acute systolic CHF (congestive heart failure) Acute Aspiration pneumonia Acute CAD (coronary artery disease), [place] coronary artery Acute COPD exacerbation Acute Cellulitis Acute Cellulitis of left thigh Acute Chronic Disease Mgmt/Transitional Care Acute Fever Acute HCAP (healthcare-associated pneumonia) Acute Hospital-acquired pneumonia Acute Ischemic cardiomyopathy Acute Leukocytosis Acute Pneumonia Acute Right lower lobe pneumonia Acute Sepsis Acute Septic shock Acute Severe sepsis Acute Severe sepsis without septic shock Acute Tachycardia Acute
[2016-06-04] MEDS: LISINOPRIL 5 MG TAB PO SCH (20:39)
[2016-06-04] MEDS: MIRTAZAPINE 15 MG TAB PO SCH (20:53)
[2016-06-04] MEDS: INSULIN GLARGINE 100 UNITS/ML SYRINGE SC SCH (21:45)
[2016-06-05] MEDS: TROLAMINE SALICYLATE 85 GM CRTUBE TP SCH ×4 (05:54→21:35)
[2016-06-05 06:29] LABS: INR 1.21 (0.83-1.16); PROTIME(PATIENT) 15.3 SEC (12.0-15.0)
[2016-06-05] MEDS: POLYETHYLENE GLYCOL 3350 17 GM PKT PO SCH ×3 (08:27→21:23)
[2016-06-05] MEDS: INSULIN REGULAR HUMAN 100 UNIT/ML SC SCH ×4 (08:27→21:40)
[2016-06-05] MEDS: SENNOSIDES/DOCUSATE SODIUM TAB PO SCH ×2 (08:28→21:13)
[2016-06-05] MEDS: GABAPENTIN 100 MG CAP PO SCH ×3 (08:28→21:13)
[2016-06-05] MEDS: CYANO/VITAMIN B12 1000 MCG TAB PO SCH (08:28)
[2016-06-05] MEDS: POTASSIUM CL 20 MEQ TAB PO SCH (08:28)
[2016-06-05] MEDS: glipiZIDE XL 5 MG TAB PO SCH (08:28)
[2016-06-05] MEDS: NICOTINE 21 MG/24 HR PATCH TD SCH (08:28)
[2016-06-05] MEDS: ENOXAPARIN 100 MG/ML SYR SC SCH ×2 (08:28→21:15)
[2016-06-05] MEDS: METOPROLOL SUCCINATE XR 25 MG TAB PO SCH (08:28)
[2016-06-05] MEDS: PETROLAT,WHT/MIN OIL/SOD CHL 3.5 GM OPHT.OINT OP SCH ×3 (08:29→21:36)
[2016-06-05] MEDS: ASPIRIN EC 81 MG TAB PO SCH (08:29)
[2016-06-05] MEDS: OXcarbazepine 300 MG TAB PO SCH ×2 (08:29→21:13)
--- NOTE | 2016-06-05 11:05 | PCMIDPN ---
Assessment/Plan: # VRE bacteremia suspect source is picc line, blood cx 06/04 so far suggest clearance --PICC tomorrow if blood cultures negative --tentatively plan 2 weeks of IV antibiotic therapy due to rapid clearance of bacteremia # left femoral vein DVT Meds Daptomycin 600mg IV daily, #5 microbiology 06/04 blood cx 2/2 NGTD 06/01 blood cx 2/2 VRE 06/02 blood cx 1/ VRE Case reviewed with nursing and behavioral health case manager. Subjective: Only speaks of wanting coffee and cigarettes. Otherwise no complaints Objective: Vital Signs Temp Pulse Resp BP Pulse Ox 36.6 C 84 20 121/78 H 91 L 06/05/16 08:09 06/05/16 08:09 06/05/16 08:09 06/05/16 08:09 06/05/16 08:09 Microbiology 06/03/16 00:30 Urine Culture - Final Urine,Catheterized Laboratory Results 06/03/16 06:50 06/03/16 06:50 06/04/16 06/05/16 06/06/16 05:59 05:59 05:59 Intake Total 6365 1100 880 Output Total 2850 1800 1500 Balance 7784 -913 -565 - Physical Exam General Appearance: alert, no apparent distress EENT: No scleral icterus Respiratory: wheezing, coarse breath sounds Neck: supple Cardiac/Chest: regular rate, rhythm Extremities: No pedal edema Abdomen: non-tender, soft, No distended Skin: other (Scattered plaques consistent with seborrhea verses eczema) Neuro/Psych: alert ICD10 Worksheet Patient Problems: Problems Problem Status Onset VRE (vancomycin resistant enterococcus) culture positive Acute VRE (vancomycin-resistant Enterococci) Acute ~06/01/16 Acute systolic CHF (congestive heart failure) Acute Aspiration pneumonia Acute CAD (coronary artery disease), [place] coronary artery Acute COPD exacerbation Acute Cellulitis Acute Cellulitis of left thigh Acute Chronic Disease Mgmt/Transitional Care Acute Fever Acute HCAP (healthcare-associated pneumonia) Acute Hospital-acquired pneumonia Acute Ischemic cardiomyopathy Acute Leukocytosis Acute Pneumonia Acute Right lower lobe pneumonia Acute Sepsis Acute Septic shock Acute Severe sepsis Acute Severe sepsis without septic shock Acute Tachycardia Acute
[2016-06-05] MEDS: NICOTINE POLACRILEX 2 MG GUM B PRN (11:50)
--- NOTE | 2016-06-05 14:16 | HOSPPROG ---
Hospitalist Progress Note Assessment/Plan: 61 yo M well known to me w recent dvt and VRE bacteremia VRE bacteremia: PICC (now out) most likely source repeat cx drawn this AM echo (poor quality SADE) not helpful pcn allergic; dapto started (statin dc'd) repeat cx drawn and neg thus far, echo done 06/05 place picc AM 06/06 if cx neg dvt: treatment doses LMWH, warfarin follow inr daily 1.2 today dm: continue lantus blood sugars at goal low this AM decrease lantus is low 06/05 cad: statin on hold on asa and bb systolic chf: ef has nearly normalized euvolemic dispo: inpt proph: therapeutically anticoagulated risk: high Subjective: asking for coffee. cultures remain neg Objective: Vital Signs Temp Pulse Resp BP Pulse Ox 36.6 C 84 20 121/78 H 91 L 06/05/16 08:09 06/05/16 08:09 06/05/16 08:09 06/05/16 08:09 06/05/16 08:09 Microbiology 06/03/16 00:30 Urine Culture - Final Urine,Catheterized Laboratory Results 06/03/16 06:50 06/03/16 06:50 06/04/16 06/05/16 06/06/16 05:59 05:59 05:59 Intake Total 6365 1100 1130 Output Total 2850 1800 1500 Balance 3515 -700 -370 PT 15.3 SEC (12.0-15.0) H 06/05/16 05:35 INR 1.21 (0.83-1.16) H 06/05/16 05:35 - Physical Exam Constitutional: no apparent distress, appears nourished Eyes: PERRL, anicteric sclera Ears, Nose, Mouth, Throat: moist mucous membranes, hearing normal Cardiovascular: regular rate and rhythym, no murmur, rub, or gallop Respiratory: no respiratory distress, no rales or rhonchi Gastrointestinal: normoactive bowel sounds Genitourinary: No milian in urethra Skin: warm, normal color, other (LLE cellulitis essentially resolved) Neurologic: AAOx3, sensation intact bilaterally ICD10 Worksheet Patient Problems: Problems Problem Status Onset VRE (vancomycin resistant enterococcus) culture positive Acute VRE (vancomycin-resistant Enterococci) Acute ~06/01/16 Acute systolic CHF (congestive heart failure) Acute Aspiration pneumonia Acute CAD (coronary artery disease), [place] coronary artery Acute COPD exacerbation Acute Cellulitis Acute Cellulitis of left thigh Acute Chronic Disease Mgmt/Transitional Care Acute Fever Acute HCAP (healthcare-associated pneumonia) Acute Hospital-acquired pneumonia Acute Ischemic cardiomyopathy Acute Leukocytosis Acute Pneumonia Acute Right lower lobe pneumonia Acute Sepsis Acute Septic shock Acute Severe sepsis Acute Severe sepsis without septic shock Acute Tachycardia Acute
[2016-06-05] MEDS: DAPTOmycin 600 MG in NS 100 ML IV SCH (16:57)
[2016-06-05] MEDS: WARFARIN SODIUM 3 MG TAB PO SCH (16:57)
[2016-06-05] MEDS: WARFARIN SODIUM 7.5 MG TAB PO SCH (16:58)
[2016-06-05] MEDS: INSULIN GLARGINE 100 UNITS/ML SYRINGE SC SCH (21:14)
[2016-06-05] MEDS: MIRTAZAPINE 15 MG TAB PO SCH (21:14)
[2016-06-05] MEDS: LISINOPRIL 5 MG TAB PO SCH (21:14)
[2016-06-06] MEDS: TROLAMINE SALICYLATE 85 GM CRTUBE TP SCH ×2 (05:25→11:57)
[2016-06-06] MEDS ORDERED: ALTEPLASE 2 MG VIAL IVP PRN (06:26)
[2016-06-06 08:17] VITALS: PULSE 87
[2016-06-06] MEDS: INSULIN REGULAR HUMAN 100 UNIT/ML SC SCH ×2 (08:24→11:39)
--- NOTE | 2016-06-06 08:32 | PDIAF ---
- Diagnosis Diagnosis: VRE bacteremia Code Status: Do Not Resuscitate - Medication Management Discharge Medications: Medications to Continue on Transfer Acetaminophen [Tylenol 325mg (*)] 650 mg PO Q6 PRN 11/25/14 [Last Taken 05/23/16 ] Atorvastatin Calcium 10 mg PO HS 11/25/14 [Last Taken 05/22/16] [place]-3 Fatty Acids/Fish Oil [Fish Oil 1,000 mg Capsule] 1 cap PO DAILY [Last Taken 05/22/16] Sennosides/Docusate Sodium [Senna-Docusate Sodium Tablet] 1 each PO BID [Last Taken 05/22/16] metFORMIN HCL [Glucophage 500 mg (*)] 500 mg PO BIDMEAL 11/25/14 [Last Taken 01/26] Aspirin EC [Aspirin EC 81 mg (*)] 81 mg PO DAILY #30 tab 12/07/14 [Last Taken ] Metoprolol Succinate Xr [Toprol Xl 25 mg (*)] 25 mg PO DAILY 01/08/15 [Last Taken 05/22/16] glipiZIDE XL [Glucotrol Xl] 5 mg PO DAILY 01/08/15 [Last Taken 05/22/16] OXcarbazepine [Trileptal 300mg (*)] 600 mg PO BID #0 tab 01/20/15 [Last Taken ] Cyanocobalamin [Vitamin B12 (*)] 1,000 mcg PO DAILY 01/21/15 [Last Taken ] Potassium Cl [Klor-Con 20 meq (*)] 20 meq PO DAILY 03/05/15 [Last Taken 05/22/16 ] Mirtazapine [Remeron] 15 mg PO HS 04/13/15 [Last Taken 05/22/16] Ergocalciferol [Vitamin D2 (*)] 50,000 unit PO Q30D 05/07/16 [Last Taken ] Gabapentin [Neurontin 100 MG (*)] 200 mg PO TID 05/07/16 [Last Taken 05/22/16] Insulin Detemir [Levemir] 14 unit SQ DAILY 05/07/16 [Last Taken 05/22/16] Ipratropium/Albuterol [Duoneb (*)] 3 ml IH Q6H PRN 05/07/16 [Last Taken 05/22/16 ] Lisinopril [Zestril 5 mg (*)] 5 mg PO HS 05/07/16 [Last Taken 05/22/16] Mineral Oil/Petrolatum,White [Artificial Tears Eye Ointment] 1 yanick OP TID [Last Taken 05/22/16] Oxymetazoline HCl [Afrin] 1 spray EACHNARE DAILY 05/07/16 [Last Taken 05/22/16] Psyllium Seed (with Dextrose) [Fiber Powder] 397 gm PO DAILY PRN 05/07/16 [Last Taken 05/22/16] Trolamine Salicylate [Aspercreme] 1 yanick TP QID 05/07/16 [Last Taken 05/22/16] Enoxaparin [Lovenox 120 MG (*)] 120 mg SQ DAILY #7 dose 06/01/16 [Last Taken Unknown] Warfarin Sodium [Coumadin 5MG (*)] 13.5 mg PO DAILY16 #10 tab 06/01/16 [Last Taken Unknown] [employer] Antibiotics: daptomycin 600mg IV daily [employer] Antibiotic Stop Date: 06/20/16 (Hold Atorvastatin while on daptomycin) Discharge Medications: Refer to the Discharge Home Medication list for PRN reason. PICC Care - Routine: Yes - Orders Diet Texture: Regular Texture Diet, Thin Liquids, Meds Whole w/Liquids - Labs/Radiology CBC Date: 06/08/16 (weekly, Wednesday) CMP Date: 06/08/16 (weekly, Wednesday) CPK Date: 06/08/16 (weekly, Wednesday) Call or Fax Lab and Imaging Results to: [id number] Dr. Carty - Follow Up Care Current Providers and Referrals: Bhupendra Carty MD [Medical Doctor] - 06/17/16 11:00 am Patient,NotPresent [Unknown] - As per Instructions
--- NOTE | 2016-06-06 08:34 | PCMIDPN ---
Assessment/Plan: # VRE bacteremia suspect source is picc line, blood cx 06/04 so far suggest clearance --PICC today, patient was not seen @ PICC line placement. Planned discharge today, call w/ questions --stop date, 06/20/16 --hold statin while on daptomycin --f/u with Dr. Carty in discharge/interagency form # left femoral vein DVT Meds Daptomycin 600mg IV daily, #6 microbiology 06/04 blood cx 2/2 NGTD 06/01 blood cx 2/2 VRE 06/02 blood cx 1/2 VRE Objective: Vital Signs Temp Pulse Resp BP Pulse Ox 36.8 C 87 18 127/87 H 97 06/06/16 08:15 06/06/16 08:15 06/06/16 08:15 06/06/16 08:15 06/06/16 08:15 Microbiology 06/03/16 00:30 Urine Culture - Final Urine,Catheterized Laboratory Results 06/03/16 06:50 06/03/16 06:50 06/05/16 06/06/16 06/07/16 05:59 05:59 05:59 Intake Total 1100 1880 Output Total 1800 3100 Balance -700 -1220 ICD10 Worksheet Patient Problems: Problems Problem Status Onset VRE (vancomycin resistant enterococcus) culture positive Acute VRE (vancomycin-resistant Enterococci) Acute ~06/01/16 Acute systolic CHF (congestive heart failure) Acute Aspiration pneumonia Acute CAD (coronary artery disease), [place] coronary artery Acute COPD exacerbation Acute Cellulitis Acute Cellulitis of left thigh Acute Chronic Disease Mgmt/Transitional Care Acute Fever Acute HCAP (healthcare-associated pneumonia) Acute Hospital-acquired pneumonia Acute Ischemic cardiomyopathy Acute Leukocytosis Acute Pneumonia Acute Right lower lobe pneumonia Acute Sepsis Acute Septic shock Acute Severe sepsis Acute Severe sepsis without septic shock Acute Tachycardia Acute
[2016-06-06] MEDS: GABAPENTIN 100 MG CAP PO SCH (08:35)
[2016-06-06] MEDS: OXcarbazepine 300 MG TAB PO SCH (08:36)
[2016-06-06] MEDS: glipiZIDE XL 5 MG TAB PO SCH (08:36)
[2016-06-06] MEDS: ASPIRIN EC 81 MG TAB PO SCH (08:36)
[2016-06-06] MEDS: CYANO/VITAMIN B12 1000 MCG TAB PO SCH (08:36)
[2016-06-06] MEDS: ENOXAPARIN 100 MG/ML SYR SC SCH (08:36)
[2016-06-06] MEDS: METOPROLOL SUCCINATE XR 25 MG TAB PO SCH (08:36)
[2016-06-06] MEDS: NICOTINE 21 MG/24 HR PATCH TD SCH (08:42)
[2016-06-06] MEDS: POLYETHYLENE GLYCOL 3350 17 GM PKT PO SCH (08:43)
[2016-06-06] MEDS: PETROLAT,WHT/MIN OIL/SOD CHL 3.5 GM OPHT.OINT OP SCH (08:48)
[2016-06-06] MEDS: SENNOSIDES/DOCUSATE SODIUM TAB PO SCH (08:53)
[2016-06-06] MEDS: POTASSIUM CL 20 MEQ TAB PO SCH (08:53)
[2016-06-06] MEDS: NICOTINE POLACRILEX 2 MG GUM B PRN (08:54)
--- NOTE | 2016-06-06 10:59 | HOSPPROG ---
Hospitalist Progress Note Assessment/Plan: 61 yo M well known to me w recent dvt and VRE bacteremia VRE bacteremia: PICC (now out) most likely source repeat cx drawn this AM echo (poor quality SADE) not helpful pcn allergic; dapto started (statin dc'd) repeat cx drawn and neg thus far, echo done 06/06: cx neg, picc today dvt: treatment doses LMWH, warfarin follow inr daily 1.2 today repeat today (06/06) they can follow to therapeutic level at MV dm: continue lantus blood sugars at goal low this AM decrease lantus is low 06/05 cad: statin on hold on asa and bb systolic chf: ef has nearly normalized euvolemic dispo: inpt proph: therapeutically anticoagulated risk: high dispo: to [place] today > 30 minutes on dc Subjective: low grade temps overnight Objective: Vital Signs Temp Pulse Resp BP Pulse Ox 36.8 C 87 18 127/87 H 97 06/06/16 08:15 06/06/16 08:36 06/06/16 08:15 06/06/16 08:36 06/06/16 08:15 Microbiology 06/03/16 00:30 Urine Culture - Final Urine,Catheterized Laboratory Results 06/03/16 06:50 06/03/16 06:50 06/05/16 06/06/16 06/07/16 05:59 05:59 05:59 Intake Total 1100 1880 Output Total 1800 3100 Balance -700 -1220 PT 15.3 SEC (12.0-15.0) H 06/05/16 05:35 INR 1.21 (0.83-1.16) H 06/05/16 05:35 - Physical Exam Constitutional: no apparent distress, appears nourished Eyes: PERRL, anicteric sclera Ears, Nose, Mouth, Throat: moist mucous membranes, hearing normal Cardiovascular: regular rate and rhythym, no murmur, rub, or gallop Respiratory: no respiratory distress, no rales or rhonchi Gastrointestinal: normoactive bowel sounds, soft, non-tender abdomen Genitourinary: no bladder fullness, No milian in urethra Skin: warm, normal color Musculoskeletal: full muscle strength, no muscle tenderness Neurologic: AAOx3, sensation intact bilaterally Psychiatric: interacting appropriately, not anxious Lymph, Heme, Immunologic: no cervical LAD ICD10 Worksheet Patient Problems: Problems Problem Status Onset VRE (vancomycin resistant enterococcus) culture positive Acute VRE (vancomycin-resistant Enterococci) Acute ~06/01/16 Acute systolic CHF (congestive heart failure) Acute Aspiration pneumonia Acute CAD (coronary artery disease), [place] coronary artery Acute COPD exacerbation Acute Cellulitis Acute Cellulitis of left thigh Acute Chronic Disease Mgmt/Transitional Care Acute Fever Acute HCAP (healthcare-associated pneumonia) Acute Hospital-acquired pneumonia Acute Ischemic cardiomyopathy Acute Leukocytosis Acute Pneumonia Acute Right lower lobe pneumonia Acute Sepsis Acute Septic shock Acute Severe sepsis Acute Severe sepsis without septic shock Acute Tachycardia Acute
--- NOTE | 2016-06-06 11:00 | PDIAF ---
- Diagnosis Diagnosis: VRE bacteremia Code Status: Do Not Resuscitate - Medication Management Discharge Medications: Medications to Continue on Transfer Acetaminophen [Tylenol 325mg (*)] 650 mg PO Q6 PRN 11/25/14 [Last Taken 05/23/16 ] Atorvastatin Calcium 10 mg PO HS 11/25/14 [Last Taken 05/22/16] [place]-3 Fatty Acids/Fish Oil [Fish Oil 1,000 mg Capsule] 1 cap PO DAILY [Last Taken 05/22/16] Sennosides/Docusate Sodium [Senna-Docusate Sodium Tablet] 1 each PO BID [Last Taken 05/22/16] metFORMIN HCL [Glucophage 500 mg (*)] 500 mg PO BIDMEAL 11/25/14 [Last Taken 01/26] Aspirin EC [Aspirin EC 81 mg (*)] 81 mg PO DAILY #30 tab 12/07/14 [Last Taken ] Metoprolol Succinate Xr [Toprol Xl 25 mg (*)] 25 mg PO DAILY 01/08/15 [Last Taken 05/22/16] glipiZIDE XL [Glucotrol Xl] 5 mg PO DAILY 01/08/15 [Last Taken 05/22/16] OXcarbazepine [Trileptal 300mg (*)] 600 mg PO BID #0 tab 01/20/15 [Last Taken ] Cyanocobalamin [Vitamin B12 (*)] 1,000 mcg PO DAILY 01/21/15 [Last Taken ] Potassium Cl [Klor-Con 20 meq (*)] 20 meq PO DAILY 03/05/15 [Last Taken 05/22/16 ] Mirtazapine [Remeron] 15 mg PO HS 04/13/15 [Last Taken 05/22/16] Ergocalciferol [Vitamin D2 (*)] 50,000 unit PO Q30D 05/07/16 [Last Taken ] Gabapentin [Neurontin 100 MG (*)] 200 mg PO TID 05/07/16 [Last Taken 05/22/16] Insulin Detemir [Levemir] 14 unit SQ DAILY 05/07/16 [Last Taken 05/22/16] Ipratropium/Albuterol [Duoneb (*)] 3 ml IH Q6H PRN 05/07/16 [Last Taken 05/22/16 ] Lisinopril [Zestril 5 mg (*)] 5 mg PO HS 05/07/16 [Last Taken 05/22/16] Mineral Oil/Petrolatum,White [Artificial Tears Eye Ointment] 1 yanick OP TID [Last Taken 05/22/16] Oxymetazoline HCl [Afrin] 1 spray EACHNARE DAILY 05/07/16 [Last Taken 05/22/16] Psyllium Seed (with Dextrose) [Fiber Powder] 397 gm PO DAILY PRN 05/07/16 [Last Taken 05/22/16] Trolamine Salicylate [Aspercreme] 1 yanick TP QID 05/07/16 [Last Taken 05/22/16] Enoxaparin [Lovenox 120 MG (*)] 120 mg SQ DAILY #7 dose 06/01/16 [Last Taken Unknown] Warfarin Sodium [Coumadin 5MG (*)] 13.5 mg PO DAILY16 #10 tab 06/01/16 [Last Taken Unknown] [place] Turner Antibiotics: daptomycin 600mg IV daily [place] Turner Antibiotic Stop Date: 06/20/16 (Hold Atorvastatin while on daptomycin) Discharge Medications: Refer to the Discharge Home Medication list for PRN reason. PICC Care - Routine: Yes - Orders Diet Texture: Regular Texture Diet, Thin Liquids, Meds Whole w/Liquids - Labs/Radiology CBC Date: 06/08/16 (weekly, Wednesday) CMP Date: 06/08/16 (weekly, Wednesday) CPK Date: 06/08/16 (weekly, Wednesday) PT/INR Date: 06/08/16 (q 2days thereafter; continue LMWH until inr > 2) Call or Fax Lab and Imaging Results to: [id number] Dr. Carty - Follow Up Care Current Providers and Referrals: Bhupendra Carty MD [Medical Doctor] - 06/17/16 11:00 am Patient,NotPresent [Unknown] - As per Instructions
--- NOTE | 2016-06-06 11:04 | PDIAF ---
- Diagnosis Diagnosis: VRE bacteremia Code Status: Do Not Resuscitate - Medication Management Discharge Medications: Medications to Continue on Transfer Acetaminophen [Tylenol 325mg (*)] 650 mg PO Q6 PRN 11/25/14 [Last Taken 05/23/16 ] [place]-3 Fatty Acids/Fish Oil [Fish Oil 1,000 mg Capsule] 1 cap PO DAILY [Last Taken 05/22/16] Sennosides/Docusate Sodium [Senna-Docusate Sodium Tablet] 1 each PO BID [Last Taken 05/22/16] metFORMIN HCL [Glucophage 500 mg (*)] 500 mg PO BIDMEAL 11/25/14 [Last Taken 01/26] Aspirin EC [Aspirin EC 81 mg (*)] 81 mg PO DAILY #30 tab 12/07/14 [Last Taken ] Metoprolol Succinate Xr [Toprol Xl 25 mg (*)] 25 mg PO DAILY 01/08/15 [Last Taken 05/22/16] glipiZIDE XL [Glucotrol Xl] 5 mg PO DAILY 01/08/15 [Last Taken 05/22/16] OXcarbazepine [Trileptal 300mg (*)] 600 mg PO BID #0 tab 01/20/15 [Last Taken ] Cyanocobalamin [Vitamin B12 (*)] 1,000 mcg PO DAILY 01/21/15 [Last Taken ] Potassium Cl [Klor-Con 20 meq (*)] 20 meq PO DAILY 03/05/15 [Last Taken 05/22/16 ] Mirtazapine [Remeron] 15 mg PO HS 04/13/15 [Last Taken 05/22/16] Ergocalciferol [Vitamin D2 (*)] 50,000 unit PO Q30D 05/07/16 [Last Taken ] Gabapentin [Neurontin 100 MG (*)] 200 mg PO TID 05/07/16 [Last Taken 05/22/16] Insulin Detemir [Levemir] 14 unit SQ DAILY 05/07/16 [Last Taken 05/22/16] Ipratropium/Albuterol [Duoneb (*)] 3 ml IH Q6H PRN 05/07/16 [Last Taken 05/22/16 ] Lisinopril [Zestril 5 mg (*)] 5 mg PO HS 05/07/16 [Last Taken 05/22/16] Mineral Oil/Petrolatum,White [Artificial Tears Eye Ointment] 1 yanick OP TID [Last Taken 05/22/16] Oxymetazoline HCl [Afrin] 1 spray EACHNARE DAILY 05/07/16 [Last Taken 05/22/16] Psyllium Seed (with Dextrose) [Fiber Powder] 397 gm PO DAILY PRN 05/07/16 [Last Taken 05/22/16] Trolamine Salicylate [Aspercreme] 1 yanick TP QID 05/07/16 [Last Taken 05/22/16] Warfarin Sodium [Coumadin 5MG (*)] 13.5 mg PO DAILY16 #10 tab 06/01/16 [Last Taken Unknown] Alteplase [Cathflo Activase 2 mg (*)] 2 mg IVP PRN PRN #0 vial 06/06/16 [Last Taken Unknown] Atorvastatin Calcium 10 mg PO HS #0 tablet 06/06/16 [Last Taken Unknown] DAPTOmycin [Cubicin] 600 mg IV DAILY@1700 #0 ml 06/06/16 [Last Taken Unknown] Enoxaparin [Lovenox 100 MG (*)] 100 mg SC BID #0 syr 06/06/16 [Last Taken Unknown] Sennosides/Docusate Sodium [Senokot-S] 1 tab PO BID #0 tab 06/06/16 [Last Taken Unknown] [facility] Antibiotics: daptomycin 600mg IV daily [facility] Antibiotic Stop Date: 06/20/16 (Hold Atorvastatin while on daptomycin) Discharge Medications: Refer to the Discharge Home Medication list for PRN reason. PICC Care - Routine: Yes (remove picc line 3/11 pm after last dose of daptomycin ) - Orders Diet Texture: Regular Texture Diet, Thin Liquids, Meds Whole w/Liquids - Labs/Radiology CBC Date: 06/08/16 (weekly, Wednesday) CMP Date: 06/08/16 (weekly, Wednesday) CPK Date: 06/08/16 (weekly, Wednesday) PT/INR Date: 06/08/16 (q 2days thereafter; continue LMWH until inr > 2) Call or Fax Lab and Imaging Results to: [id number] Dr. Carty - Follow Up Care Current Providers and Referrals: Bhupendra Carty MD [Medical Doctor] - 06/17/16 11:00 am Patient,NotPresent [Unknown] - As per Instructions
--- NOTE | 2016-06-06 11:37 | GDS ---
DISCHARGE DIAGNOSES: 1. Vancomycin-resistant Enterococcus bacteremia felt secondary to PICC line. Now cleared. 2. History of traumatic brain injury. 3. 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 4. Chronic obstructive pulmonary disease with chronic hypoxemic respiratory failure, on 3 L. 5. Coronary artery disease, status post stent. 6. History of ischemic cardiomyopathy with normalized ejection fraction, and no clinical systolic h eart failure symptoms. 7. Stroke with left nikolas paresis. 8. Left lower extremity cellulitis. HOSPITAL COURSE: Please see admission history and physical by Dr. Radha Zhong. The patient pres ented on the with positive blood cultures. He had been discharged 6 days prior. He was treate d with a week of IV cefepime. He re-presented to the emergency department, when the staff noted inc reasing left lower extremity redness and swelling. At that time, this is prior to this admission, travis ferrara had an ultrasound positive for DVT. He was restarted on Lovenox and warfarin. He then returned w ith positive blood cultures, erythema and warmth of his left lower extremity. On admission, blood cultures were drawn, which grew out VRE 1/2 blood culture bottles, but this was actually previously known. He was started on daptomycin in the emergency department. This was continued while here. His cellulitis resolved nicely without evidence of abscess. The patient was on his baseline oxygen. He was started on enoxaparin 100 mg twice daily, which is base dosing, and warfarin was restarted. His INR is 1.2 on the day prior to discharge. An INR today is pending. He has instructions as an outpatient to follow up with every other day INRs until it is greater than 2. Discharge status is back to [place], where he lives. TIME: Greater than 30 minutes spent on this discharge. /[id number]/MODL
[2016-06-06 11:42] LABS: INR 1.42 (0.83-1.16); PROTIME(PATIENT) 17.3 SEC (12.0-15.0)
[2016-06-06] MEDS: DAPTOmycin 600 MG in NS 100 ML IV SCH (13:47)
[2016-06-06 16:09] VITALS: BP 149/85; RESP 20; TEMP 98.4; O2SAT 90
== END 2016-06-06 16:26 | DRG 315 ==
LOC: EDUNIT# → F1N 18:44
PROVIDERS: ADMIT Internal Medicine; ATTEND Internal Medicine
PROC: 02HV33Z Insertion of Infusion Device into Superior Vena Cava, Percutaneous Approach (ICD-10-PCS; principal; 2016-06-06)
DX: T82.7XXA Infection and inflammatory reaction due to other cardiac and vascular devices, implants and grafts, initial encounter (principal); I82.512 Chronic embolism and thrombosis of left femoral vein; J96.11 Chronic respiratory failure with hypoxia; L03.116 Cellulitis of left lower limb; I69.354 Hemiplegia and hemiparesis following cerebral infarction affecting left non-dominant side; I10 Essential (primary) hypertension; B95.2 Enterococcus as the cause of diseases classified elsewhere; J44.9 Chronic obstructive pulmonary disease, unspecified; E78.5 Hyperlipidemia, unspecified; I25.5 Ischemic cardiomyopathy; E11.9 Type 2 diabetes mellitus without complications; Z16.21 Resistance to vancomycin; Z87.820 Personal history of traumatic brain injury; Z95.5 Presence of coronary angioplasty implant and graft; Z72.0 Tobacco use; Z88.0 Allergy status to penicillin; Z79.01 Long term (current) use of anticoagulants
CPT/HCPCS: 92610-GN; 96374; C1751; G8996-GN-CH; G8997-GN-CH; G8998-GN-CH; J0878; J1650; J1815

== ENCOUNTER 2016-06-11 20:58 | Inpatient (IN) | payer OTHER, MEDICAID ==
[2016-06-11] MEDS ORDERED: IPRATROPIUM/ALBUTEROL 3 ML DEYVIAL IH ONE (21:03)
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
[2016-06-11] MEDS ORDERED: ERTAPENEM 1 GM in NS 100 ML IV ONE (21:20)
[2016-06-11] MEDS ORDERED: VANCOMYCIN HCL/NORMAL SALINE 250 ML IV ONE (21:20)
[2016-06-11 21:22] LABS: % IMMATURE GRANULYOCYTES 0.5 % (0.0-1.1); ABSOLUTE IMMATURE GRANULOCYTES 0.08 10^3/uL (0.00-0.10); ADD DIFF? NO; ADD MORPH? NO; ADD SCAN? NO; ATYPICAL LYMPHOCYTE FLAG 10 (0-99); FRAGMENT RBC FLAG 0 (0-99); HEMATOCRIT 40.8 % (40.0-51.0); HEMOGLOBIN 13.2 g/dL (13.7-17.5); LEFT SHIFT FLG 0 (0-99); LIPEMIA HEMOLYSIS FLAG 80 (0-99); MEAN CELL HEMOGLOBIN 26.1 pg (27.9-34.1); MEAN CELL HEMOGLOBIN CONCENTR. 32.4 g/dL (32.4-36.7); MEAN CELL VOLUME 80.8 fL (81.5-99.8); MEAN PLATELET VOLUME 10.1 fL (8.7-11.7); PLATELET CLUMPS FLAG 0 (0-99); PLATELET COUNT 190 10^3/uL (150-400); RED BLOOD CELL COUNT 5.05 10^6/uL (4.40-6.38); RED CELL DISTRIBUTION WIDTH 15.1 % (11.5-15.2)
[2016-06-11 21:30] LABS: INR 2.34 (0.83-1.16); PROTIME(PATIENT) 25.9 SEC (12.0-15.0)
[2016-06-11 21:41] LABS: ANION GAP 9 mEq/L (8-16); CALCIUM 8.9 mg/dL (8.5-10.4); CARBON DIOXIDE 25 mEq/l (22-31); CHLORIDE 99 mEq/L (97-110); CREATININE 0.6 mg/dL (0.7-1.3); GLOMERULAR FILTRATION RATE > 60; GLUCOSE 131 mg/dL (70-100); POTASSIUM 4.9 mEq/L (3.5-5.2); SODIUM 133 mEq/L (134-144)
--- NOTE | 2016-06-11 21:56 | CPEKG ---
Heart Rate: 132 RR Interval: 455 P-R Interval: 152 QRSD Interval: 94 QT Interval: 304 QTC Interval: 451 P [place]: 71 QRS [place]: 12 T Wave [place]: 229 EKG Severity - ABNORMAL ECG - EKG Impression: SINUS TACHYCARDIA EKG Impression: LOW VOLTAGE IN FRONTAL LEADS EKG Impression: NONSPECIFIC T ABNORMALITIES, LATERAL LEADS Electronically Signed By: Sina Huffman 11-Jun-2016 22:28:33
[2016-06-11] MEDS ORDERED: NS 1,000 ML IV ONE (22:13)
[2016-06-12] MEDS ORDERED: ONDANSETRON 4 MG/2 ML VIAL IVP PRN (01:43)
[2016-06-12] MEDS ORDERED: ALBUTEROL 3 ML DEYVIAL IH PRN (01:43)
[2016-06-12] MEDS ORDERED: ONDANSETRON DISINTEGRATING 4 MG TAB PO PRN (01:43)
[2016-06-12] MEDS: NS 1,000 ML IV SCH ×2 (02:00→20:46)
--- NOTE | 2016-06-12 04:48 | PDGENHP ---
History and Physical - Chief Complaint hypoxia - History of Present Illness Patient was seen and evaluated prior to midnight; on 06/11/2016. Patient is a 61-year-old male with a history of TBI complicated by seizure disorder, COPD with chronic respiratory failure, CAD, diastolic CHF history of DVT and PE on systemic anticoagulation and diabetes who was sent to the ED from his SNF for acute on chronic hypoxia and fever. In the last month, patient has been admitted to [facility] 3 times, initially for lower extremity cellulitis, most recently for VRE bacteremia, for which he was discharged back to his SNF on 06/06 with plan to continue Daptomycin daily through 06/20. He returns today with report of acute worsening of respiratory status, productive cough and worsening hypoxia. History is limited due to lethargy on my exam, but there is no report of nausea, vomiting, diarrhea or dysuria. On arrival to the ED, patient was noted to be febrile and tachycardic, with stable BP. Labs revealed new leukocytosis. CXR also revealed new bilateral interstitial infiltrates concerning for atypical pneumonia. He was cultured and initiated on Vancomycin and ertapenem for presumed HCAP. History Information - Allergies/Home Medication List Allergies/Adverse Reactions: levofloxacin [From Levaquin] Allergy (Verified 05/23/16 03:19) Other-Enter Comments penicillin Allergy (Verified 05/23/16 03:19) Home Medications: Acetaminophen [Tylenol 325mg (*)] 650 mg PO Q6 PRN 11/25/14 [Last Taken 05/23/16 ] Metoprolol Succinate Xr [Toprol Xl 25 mg (*)] 25 mg PO DAILY 01/08/15 [Last Taken 05/22/16] glipiZIDE XL [Glucotrol Xl] 5 mg PO DAILY 01/08/15 [Last Taken 05/22/16] Cyanocobalamin [Vitamin B12 (*)] 1,000 mcg PO DAILY 01/21/15 [Last Taken ] Potassium Cl [Klor-Con 20 meq (*)] 20 meq PO DAILY 03/05/15 [Last Taken 05/22/16 ] Mirtazapine [Remeron] 15 mg PO HS 04/13/15 [Last Taken 05/22/16] Ergocalciferol [Vitamin D2 (*)] 50,000 unit PO Q30D 05/07/16 [Last Taken ] Insulin Detemir [Levemir] 14 unit SQ DAILY 05/07/16 [Last Taken 05/22/16] Lisinopril [Zestril 5 mg (*)] 5 mg PO DAILY 05/07/16 [Last Taken 05/22/16] Mineral Oil/Petrolatum,White [Artificial Tears Eye Ointment] 1 yanick OP TID [Last Taken 05/22/16] Oxymetazoline HCl [Afrin] 1 spray EACHNARE DAILY 05/07/16 [Last Taken 05/22/16] Psyllium Seed (with Dextrose) [Fiber Powder] 397 gm PO DAILY PRN 05/07/16 [Last Taken 05/22/16] Trolamine Salicylate [Aspercreme] 1 yanick TP QID 05/07/16 [Last Taken 05/22/16] Atorvastatin Calcium [Lipitor 10 mg (*)] 10 mg PO DAILY 06/11/16 [Last Taken Unknown] Gabapentin [Neurontin 100 MG (*)] 200 mg PO TID 06/11/16 [Last Taken Unknown] Herbals/Supplements -Info Only 1 ea PO DAILY 06/11/16 [Last Taken Unknown] Magnesium Hydroxide [Milk of Magnesia] 30 ml PO DAILY PRN 06/11/16 [Last Taken Unknown] [place]-3 Fatty Acids [Fish Oil 1000 mg (*)] 1,000 mg PO DAILY 06/11/16 [Last Taken Unknown] Sennosides/Docusate Sodium [Senokot-S] 1 tab PO BID PRN 06/11/16 [Last Taken Unknown] Warfarin Sodium [Coumadin 2MG (*)] 14 mg PO DAILY16 06/11/16 [Last Taken Unknown ] metFORMIN HCL [Glucophage 500 mg (*)] 500 mg PO BIDMEAL 06/11/16 [Last Taken Unknown] I have personally reviewed and updated: family history, medical history, social history, surgical history - Past Medical History Additional medical history: Traumatic brain injury, complicated by seizure disorder. COPD. chronic respiratory failure on 3 L nasal cannula. Ischemic cardiomyopathy diastolic, last EF 50%. CAD with PCI in 2014. hyperlipidemia. history of DVT and PE on chronic anticoagulation. diabetes mellitus 2. recent bilateral cellulitis with VRE bacteremia - Surgical History Reports: no pertinent surgical hx - Family History Positive for: non-pertinent - Social History Smoking Status: Current every day smoker Additional social history: patient currently lives in [facility], is dependent on staff for ADLs. Review of Systems ROS: 10pt was reviewed & negative except for what was stated in HPI & below Physical Exam Temp Pulse Resp BP Pulse Ox 36.9 C 94 16 103/57 L 95 06/12/16 03:25 06/12/16 03:25 06/12/16 03:25 06/12/16 03:25 06/12/16 03:25 O2 (L/minute) 6 Constitutional: no apparent distress, appears nourished, not in pain Eyes: PERRL, anicteric sclera, EOMI Ears, Nose, Mouth, Throat: hearing normal, ears appear normal, no oral mucosal ulcers, dry mucous membranes Cardiovascular: regular rate and rhythym, no murmur, rub, or gallop, pulses symmetric bilaterally, No JVD, No edema Peripheral Pulses: 2+: dorsalis-pedis (R), dorsalis-pedis (L) Respiratory: no respiratory distress, no rales or rhonchi, expiratory wheeze Gastrointestinal: normoactive bowel sounds, soft, non-tender abdomen, no palpable masses, No guarding, No rebound, No distension Genitourinary: no bladder fullness, no bladder tenderness Skin: warm, normal color, no rashes or abrasions, no fluctuance, no induration, No mottled Neurologic: AAOx3 (but lethargic; chronic L hemiplegia), CN II-XII Intact Psychiatric: encephalopathic (lethargic but arousable and following simple commands) Lab Data & Imaging Review 06/12/16 05:05 06/12/16 05:05 WBC 15.74 10^3/uL (3.80-9.50) H 06/11/16 21:11 RBC 5.05 10^6/uL (4.40-6.38) 06/11/16 21:11 Hgb 13.2 g/dL (13.7-17.5) L 06/11/16 21:11 Hct 40.8 % (40.0-51.0) 06/11/16 21:11 MCV 80.8 fL (81.5-99.8) L 06/11/16 21:11 MCH 26.1 pg (27.9-34.1) L 06/11/16 21:11 MCHC 32.4 g/dL (32.4-36.7) 06/11/16 21:11 RDW 15.1 % (11.5-15.2) 06/11/16 21:11 Plt Count 190 10^3/uL (150-400) 06/11/16 21:11 MPV 10.1 fL (8.7-11.7) 06/11/16 21:11 Neut % (Auto) 79.5 % (39.3-74.2) H 06/11/16 21:11 Lymph % (Auto) 8.7 % (15.0-45.0) L 06/11/16 21:11 Cass % (Auto) 11.0 % (4.5-13.0) 06/11/16 21:11 Eos % (Auto) 0.0 % (0.6-7.6) L 06/11/16 21:11 Baso % (Auto) 0.3 % (0.3-1.7) 06/11/16 21:11 Nucleat RBC Rel Count 0.0 % (0.0-0.2) 06/11/16 21:11 Absolute Neuts (auto) 12.52 10^3/uL (1.70-6.50) H 06/11/16 21:11 Absolute Lymphs (auto) 1.37 10^3/uL (1.00-3.00) 06/11/16 21:11 Absolute Monos (auto) 1.73 10^3/uL (0.30-0.80) H 06/11/16 21:11 Absolute Eos (auto) 0.00 10^3/uL (0.03-0.40) L 06/11/16 21:11 Absolute Basos (auto) 0.04 10^3/uL (0.02-0.10) 06/11/16 21:11 Absolute Nucleated RBC 0.00 10^3/uL (0-0.01) 06/11/16 21:11 Immature Gran % 0.5 % (0.0-1.1) 06/11/16 21:11 Immature Gran # 0.08 10^3/uL (0.00-0.10) 06/11/16 21:11 PT 25.9 SEC (12.0-15.0) H 06/11/16 21:11 INR 2.34 (0.83-1.16) H 06/11/16 21:11 ABG Lactic Acid 1.2 mmol/L (0.5-1.6) 06/11/16 21:11 Sodium 133 mEq/L (134-144) L 06/11/16 21:11 Potassium 4.9 mEq/L (3.5-5.2) 06/11/16 21:11 Chloride 99 mEq/L (97-110) 06/11/16 21:11 Carbon Dioxide 25 mEq/l (22-31) 06/11/16 21:11 Anion Gap 9 mEq/L (8-16) 06/11/16 21:11 BUN 21 mg/dL (7-23) 06/11/16 21:11 Creatinine 0.6 mg/dL (0.7-1.3) L 06/11/16 21:11 Estimated GFR > 60 06/11/16 21:11 Glucose 131 mg/dL (70-100) H 06/11/16 21:11 Calcium 8.9 mg/dL (8.5-10.4) 06/11/16 21:11 Influenza A & B (PCR) NEGATIVE FOR FLU (NEGATIVE) 06/11/16 21:40 Visualized and Interpreted Chest x-ray results: Yes Chest X-Ray results: infiltrate (bilateral interstitial opacities R>L) Visualized and Interpreted EKG results: Yes EKG additional interpertation: sinus tachycardia Assessment & Plan Assessment: Patient is a 61-year-old male with a history of recent hospitalizations for infection, most recently VRE bacteremia, and also COPD with chronic respiratory failure, CAD, diastolic CHF, history of DVT/PE and DM2 who was sent to the ED from his SNF for worsening hypoxia and fever. ED work up reveals new infiltrate on CXR, consistent with health-care associated pneumonia. Plan: # acute on chronic respiratory failure Patient chronically on 3 L NC for his chronic respiratory failure, however, has been requiring 6-10 L NC since arrival. Chest x-ray reveals bilateral interstitial infiltrates consistent with acute pneumonia, presumed Gram- negative versus MRSA pneumonia. patient also with mild scattered wheezing present although I do not suspect an acute COPD exacerbation and will not initiate steroids at this time. Patient also has history of pulmonary embolism and recent new DVT, however, INR therapeutic on arrival, so low suspicion for acute pulmonary embolism. Will continue supplemental O2 prn and provide duonebs/ albuterol standing and prn. # presumed gram-negative/mrsa or atypical pneumonia Given patient's fever, tachycardia and leukocytosis, patient meets sepsis criteria with presumed new respiratory infection. UA is pending and patient does nto have any other obvious source of infection (lower extremities appear clear, PICC placed on 06/05, site dressing clean and intact). Although SN[facility] was not transported with him, per ID's last inpatient note, he was scheduled to continue Daptomycin 600 mg daily through 06/20. Will continue this and broaden to include gram neg and atypical coverage with Invanz and azithromycin. WIll also consult ID. #acute encephalopathy, h/o TBI with chronic L hemiparesis and RLE paresis Patient somewhat lethargic on my evaluation, consistent with acute encephalopathy. Baseline neuro exam appears unchanged and patient is arousable and able to follow simple commands. AMS likely acute metabolic encephalopathy related to sepsis/acute infection. Will cont to monitor and resume home anti- epileptic. # diastolic cardiomyopathy, CAD, HLD Pt denies any cardiac symptoms, appears euvolemic. Will cont home med regimen, except for statin given daptomycin therapy. # h/o DVT /PE INR therapeutic on presentation. Will continue pt's warfarin. # DM2 Monitor FS and cover with sliding scale insulin. # dispo: admit to inpt service for > 2 [place] stay # gen: Cardiac, diabetic diet DVT ppx: on warfarin DNR/DNI
[2016-06-12] MEDS ORDERED: D50W 25 GM/50 ML SYR IVP PRN (05:13)
[2016-06-12 05:38] LABS: % IMMATURE GRANULYOCYTES 0.6 % (0.0-1.1); ABSOLUTE IMMATURE GRANULOCYTES 0.06 10^3/uL (0.00-0.10); ADD DIFF? NO; ADD MORPH? NO; ADD SCAN? NO; ATYPICAL LYMPHOCYTE FLAG 10 (0-99); FRAGMENT RBC FLAG 0 (0-99); HEMATOCRIT 34.3 % (40.0-51.0); HEMOGLOBIN 11.1 g/dL (13.7-17.5); LEFT SHIFT FLG 0 (0-99); LIPEMIA HEMOLYSIS FLAG 80 (0-99); MEAN CELL HEMOGLOBIN 26.3 pg (27.9-34.1); MEAN CELL HEMOGLOBIN CONCENTR. 32.4 g/dL (32.4-36.7); MEAN CELL VOLUME 81.3 fL (81.5-99.8); PLATELET CLUMPS FLAG 0 (0-99); PLATELET COUNT 167 10^3/uL (150-400); RED BLOOD CELL COUNT 4.22 10^6/uL (4.40-6.38); RED CELL DISTRIBUTION WIDTH 15.3 % (11.5-15.2)
[2016-06-12] MEDS: ACETAMINOPHEN 325 MG TAB PO PRN (05:47)
[2016-06-12 05:56] LABS: ANION GAP 7 mEq/L (8-16); CALCIUM 8.2 mg/dL (8.5-10.4); CARBON DIOXIDE 25 mEq/l (22-31); CHLORIDE 105 mEq/L (97-110); CREATININE 0.6 mg/dL (0.7-1.3); GLOMERULAR FILTRATION RATE > 60; GLUCOSE 253 mg/dL (70-100); MAGNESIUM 1.8 mg/dL (1.6-2.3); POTASSIUM 5.2 mEq/L (3.5-5.2); SODIUM 137 mEq/L (134-144)
[2016-06-12 06:07] LABS: INR 2.28 (0.83-1.16); PROTIME(PATIENT) 25.3 SEC (12.0-15.0)
[2016-06-12 06:08] LABS: APTT 57.5 SEC (23.0-38.0)
[2016-06-12] MEDS: IPRATROPIUM/ALBUTEROL 3 ML DEYVIAL IH SCH ×4 (06:28→21:37)
[2016-06-12] MEDS: INSULIN LISPRO 100 UNIT/ML SC SCH ×3 (08:06→18:26)
[2016-06-12] MEDS: AZITHROMYCIN IV 500 MG in D5W 250 ML IV SCH (08:06)
[2016-06-12] MEDS ORDERED: SENNOSIDES/DOCUSATE SODIUM TAB PO PRN (08:26)
[2016-06-12] MEDS ORDERED: [UNRECOGNIZED DRUG - OTHER] PO PRN (08:26)
[2016-06-12] MEDS ORDERED: MAGNESIUM HYDROXIDE 30 ML UDCUP PO PRN (08:26)
[2016-06-12] MEDS ORDERED: PSYLLIUM SEED PO PRN (08:26)
[2016-06-12] MEDS ORDERED: INSULIN DETEMIR 14 UNIT SQ SCH (09:00)
[2016-06-12] MEDS ORDERED: DAPTOmycin 600 MG in NS 100 ML IV SCH (09:00)
[2016-06-12] MEDS ORDERED: OXYMETAZOLINE HCL EACHNARE SCH (09:00)
[2016-06-12] MEDS: CYANO/VITAMIN B12 1000 MCG TAB PO SCH (09:17)
[2016-06-12] MEDS: GABAPENTIN 100 MG CAP PO SCH ×3 (09:17→21:55)
[2016-06-12] MEDS: ATORVASTATIN CALCIUM 10 MG TAB PO SCH (09:18)
[2016-06-12] MEDS: ASPIRIN EC 81 MG TAB PO SCH (09:18)
[2016-06-12] MEDS: OMEGA-3 FATTY ACIDS 1,000 MG CAP PO SCH (09:18)
[2016-06-12] MEDS: ENOXAPARIN 100 MG/ML SYR SC SCH ×2 (09:18→20:46)
[2016-06-12] MEDS: POTASSIUM CL 20 MEQ TAB PO SCH (09:18)
[2016-06-12] MEDS: ERTAPENEM 1 GM in NS 100 ML IV SCH (09:18)
[2016-06-12] MEDS: LISINOPRIL 5 MG TAB PO SCH (09:19)
[2016-06-12] MEDS: glipiZIDE XL 5 MG TAB PO SCH (09:19)
[2016-06-12] MEDS: PETROLAT,WHT/MIN OIL/SOD CHL 3.5 GM OPHT.OINT OP SCH ×3 (09:19→21:56)
[2016-06-12] MEDS ORDERED: PSYLLIUM METAMUCIL 1 PKT PO PRN (10:36)
[2016-06-12] MEDS: OXcarbazepine 300 MG TAB PO SCH ×2 (10:39→20:45)
[2016-06-12] MEDS: METOPROLOL SUCCINATE XR 25 MG TAB PO SCH (10:39)
[2016-06-12] MEDS ORDERED: INSULIN GLARGINE 100 UNIT/ML VIAL SC SCH (11:30)
[2016-06-12] MEDS ORDERED: INSULIN GLARGINE 100 UNITS/ML SYRINGE SC SCH (11:30)
[2016-06-12] MEDS: TROLAMINE SALICYLATE 85 GM CRTUBE TP SCH ×3 (12:00→20:50)
[2016-06-12 14:54] LABS: COLOR AMBER; LEUKOCYTE ESTERASE,URINE NEGATIVE (NEGATIVE); NITRITE,URINE NEGATIVE (NEGATIVE)
[2016-06-12 15:03] LABS: MUCUS TRACE /lpf (NONE-1+)
[2016-06-12] MEDS: WARFARIN SODIUM 5 MG TAB PO SCH (15:51)
[2016-06-12] MEDS: WARFARIN SODIUM 2 MG TAB PO SCH (15:51)
[2016-06-12] MEDS ORDERED: WARFARIN SODIUM 2 MG TAB PO SCH (16:00)
--- NOTE | 2016-06-12 16:50 | PCMIDPN ---
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 Patient with a chest x-ray that shows bilateral interstitial infiltrates. His exam reveals a nontoxic male. He states it has been harder to breathe over the last couple of days but the presentation is not typical for infectious etiology. His prior infection was a VRE bacteremia thought secondary to PICC line. He has had over 1 week of treatment. Suspect it is in his best interest to discontinue daptomycin and not cover the VRE at this point. Patient is also on ertapenem and azithromycin for pneumonia. Would likely remove these in the next 24-48 hours if symptoms improve. Plan: 1. Discontinue daptomycin. 2. Probably discontinue ertapenem and azithromycin in the next 48 hours if there is significant improvement. 3. Consider CT scan of the chest. Subjective: Patient is sitting comfortably in his bed. He complains of some shortness of breath that is increased from baseline. He has an underlying closed head injury and seizure disorder so he has some disturbed cognition. No fevers or chills. Objective: Daptomycin # 1 ertapenem # 1 Azithromycin # 1 Vital Signs Temp Pulse Resp BP Pulse Ox 36.8 C 110 H 20 119/61 92 06/12/16 16:00 06/12/16 16:00 06/12/16 16:00 06/12/16 16:00 06/12/16 16:00 Laboratory Results 06/12/16 05:05 06/12/16 05:05 06/11/16 06/12/16 06/13/16 05:59 05:59 05:59 Intake Total 1350 836 Balance 1350 836 - Physical Exam General Appearance: WD/WN, alert, no apparent distress, non-toxic Respiratory: crackles (Fine crackles bilaterally), No lungs clear, No normal breath sounds Cardiac/Chest: regular rate, rhythm, tachycardia Extremities: non-tender, normal inspection Skin: normal color, warm/dry, No rash Neuro/Psych: alert, normal mood/affect, oriented x 3 ICD10 Worksheet Patient Problems: Problems Problem Status Onset Cellulitis Acute Pneumonia Acute Sepsis Acute Acute systolic CHF (congestive heart failure) Acute Aspiration pneumonia Acute CAD (coronary artery disease), [place] coronary artery Acute COPD exacerbation Acute Cellulitis of left thigh Acute Chronic Disease Mgmt/Transitional Care Acute Fever Acute HCAP (healthcare-associated pneumonia) Acute Hospital-acquired pneumonia Acute Ischemic cardiomyopathy Acute Leukocytosis Acute Pneumonia Acute Right lower lobe pneumonia Acute Sepsis Acute Septic shock Acute Severe sepsis Acute Severe sepsis without septic shock Acute Tachycardia Acute VRE (vancomycin resistant enterococcus) culture positive Acute VRE (vancomycin-resistant Enterococci) Acute ~06/01/16
--- NOTE | 2016-06-12 18:10 | HOSPPROG ---
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 Frost -Continue current antibiotics and follow closely - continue current anticoagulation -Follow sugars closely -Bronchodilators as needed SUBJECTIVE: Home short of breath because I need a cigarette denies cough chest pain or chills OBJECTIVE Vitals reviewed:Remains tachycardic and tachypneic on 4 L of oxygen, blood pressure is good and no fever Exam: alert oriented interactions normally, relaxed skin warm dry color ok resps mildly labored with audible wheezing lungs prolonged expiration with wheezing heart regular abd soft nondistended nontender, bowel sounds present limbs warm, no edema iv site ok Objective: Vital Signs Temp Pulse Resp BP Pulse Ox 36.8 C 108 H 28 H 119/61 91 L 06/12/16 16:00 06/12/16 17:37 06/12/16 17:37 06/12/16 16:00 06/12/16 17:37 Laboratory Results 06/12/16 05:05 06/12/16 05:05 06/11/16 06/12/16 06/13/16 06:59 06:59 06:59 Intake Total 1350 1636 Balance 1350 1636 PT 25.3 SEC (12.0-15.0) H 06/12/16 05:05 INR 2.28 (0.83-1.16) H 06/12/16 05:05 ICD10 Worksheet Patient Problems: Problems Problem Status Onset Cellulitis Acute Pneumonia Acute Sepsis Acute Acute systolic CHF (congestive heart failure) Acute Aspiration pneumonia Acute CAD (coronary artery disease), [place] coronary artery Acute COPD exacerbation Acute Cellulitis of left thigh Acute Chronic Disease Mgmt/Transitional Care Acute Fever Acute HCAP (healthcare-associated pneumonia) Acute Hospital-acquired pneumonia Acute Ischemic cardiomyopathy Acute Leukocytosis Acute Pneumonia Acute Right lower lobe pneumonia Acute Sepsis Acute Septic shock Acute Severe sepsis Acute Severe sepsis without septic shock Acute Tachycardia Acute VRE (vancomycin resistant enterococcus) culture positive Acute VRE (vancomycin-resistant Enterococci) Acute ~06/01/16
[2016-06-12] MEDS: metFORMIN HCL 500 MG TAB PO SCH (18:27)
[2016-06-12] MEDS: MIRTAZAPINE 15 MG TAB PO SCH (20:45)
[2016-06-12] MEDS ORDERED: NON-FORMULARY NEW DRUG (Mirtazapine [Remeron] 15 MG) PO SCH (21:00)
[2016-06-12] MEDS ORDERED: FUROSEMIDE 40 MG/4 ML VIAL IVP ONE (23:18)
--- NOTE | 2016-06-12 23:28 | HOSPPROG ---
Hospitalist Progress Note Assessment/Plan: CTSP urgently to bedside for increased resp distress and increased HR sustained > 140. Patient desat 70% on 6L. Very wheezy, working very hard to breathe. Lungs: significant resp distress, using abdominal muscles, extensive bilateral wheeze and rhonchi CVS: tachy S1, S2 abd soft NT Ext no edema CXR done stat - my interpretation - worsening bilateral infiltrates - CHF vs. PNA a/p: * Acute on chronic respiratory failure -transfer to step down -may benefit from BIPAP * Bilateral infiltrates - CHF vs. PNA vs. daptomycin hypersensitivity -try IV lasix x 1 and stop IVF -abx per ID * COPD exacerbation -add iv steroids * h/o PE/DVT -will stop lovenox as INR therapeutic on warfarin CC time: 35 minutes Objective: Vital Signs Temp Pulse Resp BP Pulse Ox 36.8 C 126 H 18 136/89 H 90 L 06/12/16 19:37 06/12/16 19:37 06/12/16 19:37 06/12/16 19:37 06/12/16 19:37 Laboratory Results 06/12/16 05:05 06/12/16 05:05 06/11/16 06/12/16 06/13/16 05:59 05:59 05:59 Intake Total 1350 1636 Balance 1350 1636 PT 25.3 SEC (12.0-15.0) H 06/12/16 05:05 INR 2.28 (0.83-1.16) H 06/12/16 05:05 ICD10 Worksheet Patient Problems: Problems Problem Status Onset Cellulitis Acute Pneumonia Acute Sepsis Acute Acute systolic CHF (congestive heart failure) Acute Aspiration pneumonia Acute CAD (coronary artery disease), [place] coronary artery Acute COPD exacerbation Acute Cellulitis of left thigh Acute Chronic Disease Mgmt/Transitional Care Acute Fever Acute HCAP (healthcare-associated pneumonia) Acute Hospital-acquired pneumonia Acute Ischemic cardiomyopathy Acute Leukocytosis Acute Pneumonia Acute Right lower lobe pneumonia Acute Sepsis Acute Septic shock Acute Severe sepsis Acute Severe sepsis without septic shock Acute Tachycardia Acute VRE (vancomycin resistant enterococcus) culture positive Acute VRE (vancomycin-resistant Enterococci) Acute ~06/01/16
[2016-06-13] MEDS: methylPREDNISolone SOD SUCC 125 MG/2 ML VIAL IVP SCH ×4 (00:48→18:54)
[2016-06-13] MEDS ORDERED: LEVALBUTEROL 1.25 MG/3 ML DEYVIAL ONE (04:04)
[2016-06-13] MEDS ORDERED: LEVALBUTEROL 0.63 MG/3 ML DEYVIAL IH PRN (04:09)
[2016-06-13] MEDS ORDERED: LEVALBUTEROL 1.25 MG/3 ML DEYVIAL IH PRN (04:15)
[2016-06-13] MEDS: LEVALBUTEROL 1.25 MG/3 ML DEYVIAL IH SCH ×4 (04:24→23:39)
[2016-06-13] MEDS: TROLAMINE SALICYLATE 85 GM CRTUBE TP SCH ×4 (06:44→21:15)
[2016-06-13 06:52] LABS: % IMMATURE GRANULYOCYTES 0.2 % (0.0-1.1); ABSOLUTE IMMATURE GRANULOCYTES 0.01 10^3/uL (0.00-0.10); ADD DIFF? NO; ADD MORPH? NO; ADD SCAN? NO; ATYPICAL LYMPHOCYTE FLAG 10 (0-99); FRAGMENT RBC FLAG 0 (0-99); HEMATOCRIT 35.2 % (40.0-51.0); HEMOGLOBIN 11.4 g/dL (13.7-17.5); LEFT SHIFT FLG 50 (0-99); LIPEMIA HEMOLYSIS FLAG 80 (0-99); MEAN CELL HEMOGLOBIN CONCENTR. 32.4 g/dL (32.4-36.7); MEAN CELL VOLUME 80.4 fL (81.5-99.8); MEAN PLATELET VOLUME 10.6 fL (8.7-11.7); PLATELET CLUMPS FLAG 10 (0-99); PLATELET COUNT 196 10^3/uL (150-400); RED BLOOD CELL COUNT 4.38 10^6/uL (4.40-6.38); RED CELL DISTRIBUTION WIDTH 15.1 % (11.5-15.2)
[2016-06-13 07:02] LABS: INR 2.31 (0.83-1.16); PROTIME(PATIENT) 25.6 SEC (12.0-15.0)
[2016-06-13 07:03] LABS: ANION GAP 6 mEq/L (8-16); CALCIUM 8.2 mg/dL (8.5-10.4); CARBON DIOXIDE 30 mEq/l (22-31); CHLORIDE 98 mEq/L (97-110); CREATININE 0.6 mg/dL (0.7-1.3); GLOMERULAR FILTRATION RATE > 60; GLUCOSE 250 mg/dL (70-100); SODIUM 134 mEq/L (134-144)
[2016-06-13 07:15] LABS: TROPONIN I 0.042 ng/mL (0-0.034)
--- NOTE | 2016-06-13 09:00 | HOSPPROG ---
Hospitalist Progress Note Assessment/Plan: DIAGNOSES: -Acute hypoxemic respiratory failure -Consider infectious pneumonia verses reaction to daptomycin as cause of his current chest infiltrates and respiratory failure -Acute encephalopathy, resolving -Recent vancomycin resistant Enterococcus PICC line infection, was still on antibiotic at arrival here at this time -history of DVT and PE on chronic anticoagulation with current therapeutic INR -Diabetes mellitus type 2 PLANS: -consult Dr Flores today -Continue current antibiotics and follow closely -continue steroid -continue current anticoagulation -increase lantus insulin and Follow sugars closely -Bronchodilators as needed -he does not want intubation so I have ordered no intubate; > 45 mns bedside SUBJECTIVE: Home short of breath because I need a cigarette denies cough chest pain or chills states he does not like his life due to needing to live in nursing facility where he can't smoke; states he would rather than have cpr or intubation, does not necessarily feel depressed otherwise overnight developed marked resp distress with tachycardia, worsening hypoxemia; transferred to SDU, did not tolerate oxymask but currently tolerating OBJECTIVE Vitals reviewed:very tachycardic and dyspneic during night, better now on 10L O2 by Exam: alert oriented interactions normally, relaxed skin warm dry color ok resps labored lungs very diminished BS with some mild diffuse rales and prolonged expiration with mild wheezing heart regular abd soft nondistended nontender, bowel sounds present limbs warm, no edema iv site ok CXR - my reivew of images: severe diffuse alveolar infiltrates suggest either worsening pneumonitis or ? ARDS Objective: Vital Signs Temp Pulse Resp BP Pulse Ox 36.8 C 99 18 120/68 95 06/13/16 08:00 06/13/16 08:00 06/13/16 08:00 06/13/16 08:00 06/13/16 08:00 Laboratory Results 06/13/16 06:30 06/13/16 06:30 06/12/16 06/13/16 06/14/16 06:59 06:59 06:59 Intake Total 1350 2736 Balance 1350 2736 PT 25.6 SEC (12.0-15.0) H 06/13/16 06:30 INR 2.31 (0.83-1.16) H 06/13/16 06:30 ICD10 Worksheet Patient Problems: Problems Problem Status Onset Pneumonia Acute Sepsis Acute VRE (vancomycin-resistant Enterococci) Acute ~06/01/16 Chronic Disease Mgmt/Transitional Care Acute HCAP (healthcare-associated pneumonia) Acute Ischemic cardiomyopathy Acute Acute systolic CHF (congestive heart failure) Acute CAD (coronary artery disease), [place] coronary artery Acute Leukocytosis Acute Aspiration pneumonia Acute Fever Acute Right lower lobe pneumonia Acute Sepsis Acute Severe sepsis without septic shock Acute Hospital-acquired pneumonia Acute COPD exacerbation Acute Severe sepsis Acute Tachycardia Acute Pneumonia Acute Cellulitis of left thigh Acute Septic shock Acute Cellulitis Acute VRE (vancomycin resistant enterococcus) culture positive Acute
[2016-06-13] MEDS: CYANO/VITAMIN B12 1000 MCG TAB PO SCH (09:22)
[2016-06-13] MEDS: LISINOPRIL 5 MG TAB PO SCH (09:22)
[2016-06-13] MEDS: metFORMIN HCL 500 MG TAB PO SCH ×2 (09:22→18:54)
[2016-06-13] MEDS: GABAPENTIN 100 MG CAP PO SCH ×3 (09:22→21:15)
[2016-06-13] MEDS: OMEGA-3 FATTY ACIDS 1,000 MG CAP PO SCH (09:23)
[2016-06-13] MEDS: METOPROLOL SUCCINATE XR 25 MG TAB PO SCH (09:23)
[2016-06-13] MEDS: ASPIRIN EC 81 MG TAB PO SCH (09:23)
[2016-06-13] MEDS: PETROLAT,WHT/MIN OIL/SOD CHL 3.5 GM OPHT.OINT OP SCH ×3 (09:23→21:16)
[2016-06-13] MEDS: ATORVASTATIN CALCIUM 10 MG TAB PO SCH (09:23)
[2016-06-13] MEDS: INSULIN LISPRO 100 UNIT/ML SC SCH ×3 (09:24→21:49)
[2016-06-13] MEDS: INSULIN GLARGINE 100 UNITS/ML SYRINGE SC SCH (09:24)
[2016-06-13] MEDS: ERTAPENEM 1 GM in NS 100 ML IV SCH (09:25)
[2016-06-13] MEDS: AZITHROMYCIN IV 500 MG in D5W 250 ML IV SCH (09:25)
[2016-06-13] MEDS: OXYMETAZOLINE 30 ML NASAL SPRAY EACHNARE SCH (09:39)
[2016-06-13] MEDS: glipiZIDE XL 5 MG TAB PO SCH (13:46)
[2016-06-13] MEDS: POTASSIUM CL 20 MEQ TAB PO SCH (13:54)
[2016-06-13] MEDS: OXcarbazepine 300 MG TAB PO SCH ×2 (13:55→21:14)
--- NOTE | 2016-06-13 14:15 | PCMIDPN ---
Assessment/Plan: 1. Hypoxemic respiratory failure ? secondary to daptomycin hypersensitivity: Will obtain CT scan of the chest to further evaluate lung parenchyma. Patient is agreeable to this. Daptomycin has been discontinued. Continue Solu-Medrol. Although the patient does not have peripheral eosinophilia, this does not rule out daptomycin hypersensitivity. Continue ertapenem and azithromycin pending CT results, but suspect I will likely discontinue these tomorrow. 2. History of VRE bacteremia from line infection: Patient received approximately 8 days of therapy. Repeat blood cultures are negative. Subjective: Transfer to the unit last night secondary to respiratory distress. Given Lasix, and improved. Patient tells me "I feel fine. I want a cigarette. Bring me some coffee!" Objective: Ertapenem 1 g IV daily Azithromycin 500 mg IV daily both day 2. Solu-Medrol 97% on 10 L Vital Signs Temp Pulse Resp BP Pulse Ox 36.6 C 99 23 H 111/96 H 97 06/13/16 12:00 06/13/16 12:00 06/13/16 12:00 06/13/16 12:00 06/13/16 12:00 Laboratory Results 06/13/16 06:30 06/13/16 06:30 06/12/16 06/13/16 06/14/16 05:59 05:59 05:59 Intake Total 1350 2736 Balance 1350 2736 Blood cultures negative - Physical Exam General Appearance: alert, no apparent distress, obese EENT: pharynx normal, No thrush Respiratory: wheezing (Bilaterally) Cardiac/Chest: tachycardia Extremities: other (PICC line right upper extremity looks fine) Abdomen: non-tender, soft Skin: No rash ICD10 Worksheet Patient Problems: Problems Problem Status Onset Cellulitis Acute Pneumonia Acute Sepsis Acute Acute systolic CHF (congestive heart failure) Acute Aspiration pneumonia Acute CAD (coronary artery disease), [place] coronary artery Acute COPD exacerbation Acute Cellulitis of left thigh Acute Chronic Disease Mgmt/Transitional Care Acute Fever Acute HCAP (healthcare-associated pneumonia) Acute Hospital-acquired pneumonia Acute Ischemic cardiomyopathy Acute Leukocytosis Acute Pneumonia Acute Right lower lobe pneumonia Acute Sepsis Acute Septic shock Acute Severe sepsis Acute Severe sepsis without septic shock Acute Tachycardia Acute VRE (vancomycin resistant enterococcus) culture positive Acute VRE (vancomycin-resistant Enterococci) Acute ~06/01/16
[2016-06-13] MEDS: WARFARIN SODIUM 5 MG TAB PO SCH (15:00)
[2016-06-13] MEDS: WARFARIN SODIUM 2 MG TAB PO SCH (15:00)
--- NOTE | 2016-06-13 16:45 | GCON ---
PULMONARY/CRITICAL CARE CONSULTATION. DATE OF CONSULTATION: 06/13/2016 REFERRING PHYSICIAN: Haresh Hanson MD REASON FOR REFERRAL: Evaluation and management of pulmonary infiltrates and hypoxemia. HISTORY: The patient is a 61-year-old gentleman with a history of traumatic brain injury complicate d by seizure disorder, as well as a history of COPD and chronic diastolic congestive heart failure w ho has been hospitalized a few times over the last month for lower extremity cellulitis, as well as a VRE bacteremia. He was [facility] back to the [facility] about a week ago on daptomycin. He returns to the hospital yesterday with an acute worsening of his chronic shortness of breath, as well as worsen ing hypoxemia and productive cough. The patient currently states that he is feeling better with inc reased oxygen flow and has minimal cough. He denies chest pain. PAST MEDICAL HISTORY: 1. COPD with chronic respiratory failure, on supplemental oxygen at 3 L per minute. He continues t o smoke. 2. Coronary artery disease status post stenting. 3. Ischemic cardiomyopathy with systolic congestive heart failure. His EF has been as low as 15%, but the most recent echo showed an ejection fraction of 50%. 4. Type 2 diabetes. 5. History of recurrent PE and DVT. 6. Traumatic brain injury with seizure disorder. 7. History of stroke with left hemiparesis. 8. Dementia. MEDICATIONS: At the time of admission include Tylenol, aspirin, Toprol, Glucotrol, Trileptal, Pillow on, Afrin, Zestril, Levemir, Lovenox, daptomycin, metformin, gabapentin, warfarin, atorvastatin. ALLERGIES: Levofloxacin and penicillin. SOCIAL HISTORY: The patient lives at [place]. He is paralyzed in 3 limbs and only has use of hi s right upper extremity. He does not drink. He is a heavy smoker and continues to smoke. FAMILY HISTORY: Unremarkable. REVIEW OF SYSTEMS: A 10-point review of systems adds nothing to the History of Present Illness. PHYSICAL EXAMINATION: GENERAL: The patient is awake, alert, in no acute distress. VITAL SIGNS: B lood pressure is 111/96 with a heart rate of 99. He is afebrile. Oxygen saturations are 97% on 10 L. HEENT: Normocephalic and atraumatic. No icterus. NECK: No JVD. Trachea is midline. CHEST: He has rales in the bases. CARDIAC: Regular rate and rhythm without murmur. ABDOMEN: Soft, nont marek. Bowel sounds are present. EXTREMITIES: No clubbing, cyanosis, or edema. LABORATORY DATA: A white blood count is 4.8, down from 15.7 yesterday. Hemoglobin is 11.4. Chemis try group shows a normal renal function. Troponin is 0.04. A BNP is 535. Glucose is 306. Lactic acid is 1.2. A chest x-ray shows increased bilateral interstitial and alveolar infiltrates in both lungs when compared to a chest x-ray done on June 11. Images reviewed. An influenza swab is nega tive. ASSESSMENT: 1. Acute pulmonary infiltrates. Possibilities include bacterial or atypical pneumonia, daptomycin pulmonary toxicity, or congestive heart failure. The patient's daptomycin has been held. He has be en started on azithromycin and ertapenem for the possibility of pneumonia. His BNP is just slightly elevated, but congestive heart failure/pulmonary edema is a possibility. 2. Diabetes. The patient's blood sugars are currently poorly controlled. 3. Chronic obstructive pulmonary disease. The patient currently does not have wheezing, and his br eathing is not labored despite fairly extensive pulmonary infiltrates. RECOMMENDATIONS: 1. Agree with CT scan as ordered by Dr. Contreras. 2. Agree with holding daptomycin. 3. Check an echocardiogram. 4. Insulin for patient's diabetes. 5. Continue Xopenex for COPD. /[id number]/MODL
[2016-06-13] MEDS: MIRTAZAPINE 15 MG TAB PO SCH (21:14)
[2016-06-14] MEDS: methylPREDNISolone SOD SUCC 125 MG/2 ML VIAL IVP SCH ×4 (00:15→17:19)
[2016-06-14] MEDS: TROLAMINE SALICYLATE 85 GM CRTUBE TP SCH ×4 (06:11→20:59)
[2016-06-14] MEDS: LEVALBUTEROL 1.25 MG/3 ML DEYVIAL IH SCH ×4 (06:50→22:26)
[2016-06-14] MEDS: OMEGA-3 FATTY ACIDS 1,000 MG CAP PO SCH (08:36)
[2016-06-14] MEDS: glipiZIDE XL 5 MG TAB PO SCH (08:37)
[2016-06-14] MEDS: POTASSIUM CL 20 MEQ TAB PO SCH (08:37)
[2016-06-14] MEDS: METOPROLOL SUCCINATE XR 25 MG TAB PO SCH (08:37)
[2016-06-14] MEDS: LISINOPRIL 5 MG TAB PO SCH (08:37)
[2016-06-14] MEDS: ATORVASTATIN CALCIUM 10 MG TAB PO SCH (08:38)
[2016-06-14] MEDS: CYANO/VITAMIN B12 1000 MCG TAB PO SCH (08:38)
[2016-06-14] MEDS: GABAPENTIN 100 MG CAP PO SCH ×3 (08:38→20:58)
[2016-06-14] MEDS: ASPIRIN EC 81 MG TAB PO SCH (08:38)
[2016-06-14] MEDS: OXcarbazepine 300 MG TAB PO SCH ×2 (08:38→20:58)
[2016-06-14] MEDS: metFORMIN HCL 500 MG TAB PO SCH ×2 (08:38→17:18)
[2016-06-14] MEDS: INSULIN LISPRO 100 UNIT/ML SC SCH ×3 (08:39→17:38)
[2016-06-14] MEDS: ERTAPENEM 1 GM in NS 100 ML IV SCH (08:39)
[2016-06-14] MEDS: PETROLAT,WHT/MIN OIL/SOD CHL 3.5 GM OPHT.OINT OP SCH ×3 (08:47→20:58)
[2016-06-14] MEDS: INSULIN GLARGINE 100 UNITS/ML SYRINGE SC SCH (08:47)
[2016-06-14] MEDS: OXYMETAZOLINE 30 ML NASAL SPRAY EACHNARE SCH (08:48)
[2016-06-14] MEDS: AZITHROMYCIN IV 500 MG in D5W 250 ML IV SCH (09:39)
--- NOTE | 2016-06-14 09:47 | HOSPPROG ---
Hospitalist Progress Note Assessment/Plan: DIAGNOSES: -Acute hypoxemic respiratory failure -Consider infectious pneumonia verses reaction to daptomycin as cause of his current chest infiltrates and respiratory failure -Acute encephalopathy, resolving -Recent vancomycin resistant Enterococcus PICC line infection, was still on antibiotic at arrival here at this time -history of DVT and PE on chronic anticoagulation with current therapeutic INR -Diabetes mellitus type 2 PLANS: -Continue current antibiotics and follow closely -continue steroid -continue current anticoagulation -continue current insulin follow sugars -Bronchodilators as needed -he does not want intubation so I have ordered no intubation, continue DNR order SUBJECTIVE: Denies shortness of breath, denies chest pain and states he is not coughing much but is nurses he has been coughing fairly constantly. Is eating well OBJECTIVE Vitals reviewed: Pulse and respirations much better but remains on 10 L by Oxymizer No fever Exam: alert oriented interactions normally, relaxed skin warm dry color ok resps labored lungs very diminished BS with some mild diffuse rales and prolonged expiration with mild wheezing heart regular abd soft nondistended nontender, bowel sounds present limbs warm, no edema iv site ok CT scan of chest, my review of images and interpretation: Diffuse patchy ground -glass opacity throughout both lungs without masses or significant effusions Laboratory data: Blood sugars notably improved at this time Objective: Vital Signs Temp Pulse Resp BP Pulse Ox 36.4 C 91 19 140/84 H 96 06/14/16 08:00 06/14/16 08:00 06/14/16 08:00 06/14/16 08:00 06/14/16 08:00 Laboratory Results 06/13/16 06:30 06/13/16 06:30 06/13/16 06/14/16 06/15/16 06:59 06:59 06:59 Intake Total 2736 750 Balance 2736 750 PT 25.6 SEC (12.0-15.0) H 06/13/16 06:30 INR 2.31 (0.83-1.16) H 06/13/16 06:30 ICD10 Worksheet Patient Problems: Problems Problem Status Onset Cellulitis Acute Pneumonia Acute Sepsis Acute Acute systolic CHF (congestive heart failure) Acute Aspiration pneumonia Acute CAD (coronary artery disease), [place] coronary artery Acute COPD exacerbation Acute Cellulitis of left thigh Acute Chronic Disease Mgmt/Transitional Care Acute Fever Acute HCAP (healthcare-associated pneumonia) Acute Hospital-acquired pneumonia Acute Ischemic cardiomyopathy Acute Leukocytosis Acute Pneumonia Acute Right lower lobe pneumonia Acute Sepsis Acute Septic shock Acute Severe sepsis Acute Severe sepsis without septic shock Acute Tachycardia Acute VRE (vancomycin resistant enterococcus) culture positive Acute VRE (vancomycin-resistant Enterococci) Acute ~06/01/16
[2016-06-14] MEDS ORDERED: ALBUTEROL 3 ML DEYVIAL IH PRN (10:20)
--- NOTE | 2016-06-14 12:08 | ECHO ---
[id number] + + [address] : : [place] [address] : : [phone] + Adult Echocardiographic Report + ----+ :Name: Keyla MELGARmathew Date: 06/14/2016 08:52 AM : : Hospital Admission Number: [id number] Location: 241: :: 1955 Gender: Male Height: 68 in : :Age: 61 yrs Race: WH Weight: 198 lb : :Reason For Study: infiltrates, possible CHF : : BSA: 2.0 meters2 : :History: Previous EF of !5% : + ----+ MMode/2D Measurements \T\ Calculations IVSd: 1.2 cm LVIDd: 5.5 cm FS: 29.7 % LVOT diam: 2.0 cm LVPWd: 1.2 cm LVIDs: 3.8 cm EDV(Teich): 145.8 ml LVOT area: 3.2 cm2 ESV(Teich): 63.8 ml EF(Teich): 56.2 % Normal Measurement Values: + + :LVIDd (3.5-5.7cm) IVSd (0.6-1.1cm) LVPWd (0.6-1.1cm) Aortic Root (2.0-3.7cm)Left Atrium (1.5-4.0cm): :LV Vol(d) (76-115ml) LV Vol(s) (29-48ml) Ejec Fraction (50-65%)PV Kunal (0.6- 1.2m/s) TV Kunal (0.4-1.0m/s) : :MV E Kunal (0.8-1.0m/s)MV A Kunal (0.3-1.0m/s)LVOT Kunal (0.7-1.2m/s) Asc Ao Kunal ( 0.9-1.8m/s) : + + Doppler Measurements \T\ Calculations MV E max kunal: MV V2 max: Ao mean PG: LV V1 mean P.0 cm/sec 151.3 cm/sec 3.2 mmHg 3.3 mmHg MV dec time: MV max PG: Ao V2 mean: LV V1 mean: 0.08 sec 9.2 mmHg 83.0 cm/sec 85.3 cm/sec MV V2 mean: Ao V2 VTI: 20.5 cm LV V1 VTI: 25.8 cm 94.5 cm/sec SHABANA(I,D): 4.0 cm2 MV mean P.4 mmHg MV V2 VTI: 22.3 cm MVA(VTI): 3.7 cm2 SV(LVOT): 82.7 ml PA V2 max: RAP systole: 62.1 cm/sec 10.0 mmHg PA max P.5 mmHg Left Ventricle The left ventricle is mildly dilated. Probably mild concentric LVH noted with mild diastolic dysfunction. There is Doppler evidence for diastolic dysfunction. LVEF= 50-55%. Regional wall motion abnormalities cannot be excluded due to limited visualization. Right Ventricle The right ventricle is grossly normal size. The right ventricular systolic function is normal. Atria The left atrial size is normal. Right atrial size is normal. Mitral Valve The mitral valve is normal in structure and function. There is no mitral valve stenosis. There is no mitral regurgitation noted. Tricuspid Valve The tricuspid valve is normal in structure and function. There is no tricuspid stenosis. Mild TR noted. Unable to assess PA pressures accurately. Aortic Valve The aortic valve is not well visualized. There is no aortic stenosis. There is no aortic insufficiency. Pulmonic Valve The pulmonic valve is not well visualized. There is no pulmonic valvular stenosis. There is no pulmonic valvular regurgitation. Great Vessels The aortic root is normal size. Pericardium/Pleural Trivial pericardial effusion with no tamponade physiology. Conclusion A complete two-dimensional transthoracic echocardiogram was performed (2D, M-mode, Doppler and color flow Doppler). The study was technically difficult. Patient supine for duration of study. Patient refused to lay on left side. 1)Technically limited echo secondary to body habitus. 2)Low normal LV systolic function with a LVEF of 50-55%. Cannot evalute focal wall motions well. 3)Mild concentric LVH with mild diastolic dysfunction. 4)Mild TR noted. 5)Trivial pericardial effusion with no tamponade physiology. Final Reading Physician: Dayron Del Valle electronically signed on 06/14/2016 12:07 PM Ordering Physician: OLY GAMEZ Performed By: Karmen Garcia
--- NOTE | 2016-06-14 12:15 | PCMIDPN ---
Assessment/Plan: 1. Hypoxemic respiratory failure ? secondary to daptomycin hypersensitivity: Chest CT seems most consistent with daptomycin hypersensitivity. Will discontinue ertapenem, and continue azithromycin for 2 more days for treatment of possible atypical pneumonia, although this seems less likely. Continue Solu- Medrol. 2. History of VRE bacteremia from line infection: Patient received approximately 8 days of therapy. Repeat blood cultures are negative. Subjective: Chest CT showed diffuse ground-glass opacifications.Patient is being fed by his . No real complaints. Feels that his breathing is about the same. Not really coughing. Objective: Ertapenem 1 g IV daily day 3. Azithromycin 500 mg IV daily day 3. 94% on 10 L Afebrile Vital Signs Temp Pulse Resp BP Pulse Ox 36.6 C 102 H 24 H 121/65 H 94 06/14/16 11:42 06/14/16 11:42 06/14/16 11:42 06/14/16 11:42 06/14/16 11:42 Laboratory Results 06/13/16 06:30 06/13/16 06:30 06/13/16 06/14/16 06/15/16 05:59 05:59 05:59 Intake Total 2736 750 Balance 2736 750 Blood cultures negative - Physical Exam General Appearance: alert, no apparent distress, obese EENT: pharynx normal Respiratory: lungs clear, other (Poor inspiratory effort), No crackles, No wheezing Cardiac/Chest: regular rate, rhythm Skin: No rash ICD10 Worksheet Patient Problems: Problems Problem Status Onset Cellulitis Acute Pneumonia Acute Sepsis Acute Acute systolic CHF (congestive heart failure) Acute Aspiration pneumonia Acute CAD (coronary artery disease), [place] coronary artery Acute COPD exacerbation Acute Cellulitis of left thigh Acute Chronic Disease Mgmt/Transitional Care Acute Fever Acute HCAP (healthcare-associated pneumonia) Acute Hospital-acquired pneumonia Acute Ischemic cardiomyopathy Acute Leukocytosis Acute Pneumonia Acute Right lower lobe pneumonia Acute Sepsis Acute Septic shock Acute Severe sepsis Acute Severe sepsis without septic shock Acute Tachycardia Acute VRE (vancomycin resistant enterococcus) culture positive Acute VRE (vancomycin-resistant Enterococci) Acute ~06/01/16
--- NOTE | 2016-06-14 15:19 | PDINTPN ---
[employer] Progress Note Assessment/Plan: Assessment: Pneumonitis: ? Pneumonia vs. Daptomycin hypersensitivity (CT most consistent with this, but no eosinophilia on peripheral smear). CHF unlikely with no dramatic changes on ECHO and just mildly elevated BNP. Plan: Ertapenam D/C'd. Continue azithro, steroids. Follow clinically. Will sign off, please call if not improving. 06/14/16 15:26 Subjective: Feels OK, a bit dyspneic, no cough. Good appetite. Objective: Vital Signs Temp Pulse Resp BP Pulse Ox 36.6 C 102 H 24 H 121/65 H 94 06/14/16 11:42 06/14/16 11:42 06/14/16 11:42 06/14/16 11:42 06/14/16 11:42 Laboratory Results 06/13/16 06:30 06/13/16 06:30 06/13/16 06/14/16 06/15/16 05:59 05:59 05:59 Intake Total 2736 750 Balance 2736 750 PT 25.6 SEC (12.0-15.0) H 06/13/16 06:30 INR 2.31 (0.83-1.16) H 06/13/16 06:30 CT Chest: Patchy extensive bilateral alveolar-interstitial infiltrates. Images reviewed. ECHO: EF 50-55%, diastolic dysfunction. Mild LVH. Technically limited. Physical Exam - Physical Exam General Appearance: alert, no apparent distress EENT: normal ENT inspection Neck: normal inspection Respiratory: crackles (bases) Cardiac/Chest: regular rate, rhythm, edema Abdomen: normal bowel sounds, non-tender Skin: normal color, warm/dry Extremities: normal inspection Neuro/Psych: alert, motor weakness (chronic) ICD10 Worksheet Patient Problems: Problems Problem Status Onset Cellulitis Acute Pneumonia Acute Sepsis Acute Acute systolic CHF (congestive heart failure) Acute Aspiration pneumonia Acute CAD (coronary artery disease), [place] coronary artery Acute COPD exacerbation Acute Cellulitis of left thigh Acute Chronic Disease Mgmt/Transitional Care Acute Fever Acute HCAP (healthcare-associated pneumonia) Acute Hospital-acquired pneumonia Acute Ischemic cardiomyopathy Acute Leukocytosis Acute Pneumonia Acute Right lower lobe pneumonia Acute Sepsis Acute Septic shock Acute Severe sepsis Acute Severe sepsis without septic shock Acute Tachycardia Acute VRE (vancomycin resistant enterococcus) culture positive Acute VRE (vancomycin-resistant Enterococci) Acute ~06/01/16
[2016-06-14] MEDS: WARFARIN SODIUM 5 MG TAB PO SCH (17:18)
[2016-06-14] MEDS: WARFARIN SODIUM 2 MG TAB PO SCH (17:18)
[2016-06-14] MEDS: MIRTAZAPINE 15 MG TAB PO SCH (20:58)
[2016-06-15] MEDS: methylPREDNISolone SOD SUCC 125 MG/2 ML VIAL IVP SCH ×4 (00:39→17:45)
[2016-06-15] MEDS: LEVALBUTEROL 1.25 MG/3 ML DEYVIAL IH SCH ×4 (04:45→23:38)
[2016-06-15] MEDS: TROLAMINE SALICYLATE 85 GM CRTUBE TP SCH ×4 (06:17→22:44)
[2016-06-15 08:26] LABS: PROTIME(PATIENT) 70.1 SEC (12.0-15.0)
[2016-06-15 08:30] LABS: INR 8.14 (0.83-1.16)
[2016-06-15] MEDS: INSULIN LISPRO 100 UNIT/ML SC SCH ×4 (08:48→17:46)
[2016-06-15] MEDS: OMEGA-3 FATTY ACIDS 1,000 MG CAP PO SCH (08:58)
[2016-06-15] MEDS: LISINOPRIL 5 MG TAB PO SCH (08:58)
[2016-06-15] MEDS: AZITHROMYCIN IV 500 MG in D5W 250 ML IV SCH (08:58)
[2016-06-15] MEDS: GABAPENTIN 100 MG CAP PO SCH ×3 (08:58→22:41)
[2016-06-15] MEDS: CYANO/VITAMIN B12 1000 MCG TAB PO SCH (08:58)
[2016-06-15] MEDS: ASPIRIN EC 81 MG TAB PO SCH (08:59)
[2016-06-15] MEDS: METOPROLOL SUCCINATE XR 25 MG TAB PO SCH (08:59)
[2016-06-15] MEDS: OXcarbazepine 300 MG TAB PO SCH ×2 (08:59→22:41)
[2016-06-15] MEDS: glipiZIDE XL 5 MG TAB PO SCH (08:59)
[2016-06-15] MEDS: PETROLAT,WHT/MIN OIL/SOD CHL 3.5 GM OPHT.OINT OP SCH ×3 (09:00→22:44)
[2016-06-15] MEDS: metFORMIN HCL 500 MG TAB PO SCH ×2 (09:00→17:45)
[2016-06-15] MEDS: POTASSIUM CL 20 MEQ TAB PO SCH (09:00)
[2016-06-15] MEDS: INSULIN GLARGINE 100 UNITS/ML SYRINGE SC SCH (09:01)
[2016-06-15] MEDS: ATORVASTATIN CALCIUM 10 MG TAB PO SCH (09:02)
[2016-06-15] MEDS: OXYMETAZOLINE 30 ML NASAL SPRAY EACHNARE SCH (09:04)
--- NOTE | 2016-06-15 09:21 | PCMIDPN ---
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 CT scan done on Wednesday shows bilateral patches of ground-glass interstitial and alveolar infiltrates. He is requiring 10 L of oxygen through [employer] to keep sats in the mid to upper 90s. Daptomycin has been discontinued since Wednesday. His prior infection was a VRE bacteremia thought secondary to PICC line. Blood cultures have remained negative. Ertapenem removed over the weekend. Azithromycin for 1 more day then discontinue. Plan: 1. Continue to observe off daptomycin. 2. Probable discontinuation of azithromycin in the next 24 hours. 3. Follow clinical course and oxygen needs. 4. Continue IV Solu-Medrol. Subjective: Patient is resting in his bed in the hospital room. He notes that his breathing is improved. Continues to keep asking for a cigarette. No fevers or chills. Objective: Azithromycin #4 Vital Signs Temp Pulse Resp BP Pulse Ox 37.1 C 83 15 142/71 H 99 06/15/16 08:00 06/15/16 08:00 06/15/16 08:00 06/15/16 08:00 06/15/16 08:00 Laboratory Results 06/13/16 06:30 06/13/16 06:30 06/14/16 06/15/16 06/16/16 05:59 05:59 05:59 Intake Total 750 2107 Balance 750 2107 - Physical Exam General Appearance: WD/WN, alert, no apparent distress, non-toxic Respiratory: crackles (Fine crackles bilaterally), wheezing (Both inspiratory and expiratory wheezes heard), No lungs clear, No normal breath sounds, No respiratory distress Cardiac/Chest: regular rate, rhythm, No tachycardia Extremities: non-tender, normal inspection Skin: normal color, warm/dry, No rash Neuro/Psych: alert, normal mood/affect, oriented x 3 ICD10 Worksheet Patient Problems: Problems Problem Status Onset Cellulitis Acute Pneumonia Acute Sepsis Acute Acute systolic CHF (congestive heart failure) Acute Aspiration pneumonia Acute CAD (coronary artery disease), [place] coronary artery Acute COPD exacerbation Acute Cellulitis of left thigh Acute Chronic Disease Mgmt/Transitional Care Acute Fever Acute HCAP (healthcare-associated pneumonia) Acute Hospital-acquired pneumonia Acute Ischemic cardiomyopathy Acute Leukocytosis Acute Pneumonia Acute Right lower lobe pneumonia Acute Sepsis Acute Septic shock Acute Severe sepsis Acute Severe sepsis without septic shock Acute Tachycardia Acute VRE (vancomycin resistant enterococcus) culture positive Acute VRE (vancomycin-resistant Enterococci) Acute ~06/01/16
[2016-06-15 10:06] LABS: PROTIME(PATIENT) 68.9 SEC (12.0-15.0)
[2016-06-15 10:11] LABS: INR 7.96 (0.83-1.16)
--- NOTE | 2016-06-15 12:00 | WOCRNPDOC ---
WODAY[facility] Advanced Assessment Note - Skin Integrity Problem, Advanced Assess Right Medial Buttock Unknown Dressing Type: Open to Air Integumentary Issue Intervention: Lotion/Cream Applied (Durable barrier cream) Site Measurement - Head-to-Toe Length X Width X Depth (cm): 2x1x0.1 Skin Integrity Problem Comment: IAD and friction injury to buttocks. Intertriginous dermatitis as well as incontinence associated dermatitis in cleft. All skin blanching. Tosha HALL in room for care. Wound care will not follow. Please reconsult prn. Left Gluteal Folds Incont Assoc Dermatitis Integumentary Issue Intervention: Lotion/Cream Applied (Durable barrier cream. ) Site Measurement - Head-to-Toe Length X Width X Depth (cm): 0.3x5x0.1 Skin Integrity Problem Comment: Open wound from incontinence in fold. Keep area clean and apply durable barrier cream BID.
--- NOTE | 2016-06-15 17:24 | HOSPPROG ---
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 Still using 10-12 L by Oxymizer OBJECTIVE Vitals reviewed: Respirations still rapid as high as 24, and remains on 10 L by Oxymizer No fever Exam: alert oriented interactions normally, relaxed skin warm dry color ok resps labored lungs very diminished BS with some mild diffuse rales and prolonged expiration with mild wheezing heart regular abd soft nondistended nontender, bowel sounds present limbs warm, no edema iv site ok Laboratory data: Morning sugars have been reasonable but his postprandial sugars remain quite high, he is not sticking with a diabetic diet very well Objective: Vital Signs Temp Pulse Resp BP Pulse Ox 36.6 C 111 H 24 H 111/72 88 L 06/15/16 14:54 06/15/16 14:54 06/15/16 14:54 06/15/16 14:54 06/15/16 14:54 Laboratory Results 06/13/16 06:30 06/13/16 06:30 06/14/16 06/15/16 06/16/16 06:59 06:59 06:59 Intake Total 750 2107 1250 Balance 750 2107 1250 PT 68.9 SEC (12.0-15.0) H 06/15/16 09:30 INR 7.96 (0.83-1.16) H* 06/15/16 09:30 ICD10 Worksheet Patient Problems: Problems Problem Status Onset Cellulitis Acute Pneumonia Acute Sepsis Acute Acute systolic CHF (congestive heart failure) Acute Aspiration pneumonia Acute CAD (coronary artery disease), [place] coronary artery Acute COPD exacerbation Acute Cellulitis of left thigh Acute Chronic Disease Mgmt/Transitional Care Acute Fever Acute HCAP (healthcare-associated pneumonia) Acute Hospital-acquired pneumonia Acute Ischemic cardiomyopathy Acute Leukocytosis Acute Pneumonia Acute Right lower lobe pneumonia Acute Sepsis Acute Septic shock Acute Severe sepsis Acute Severe sepsis without septic shock Acute Tachycardia Acute VRE (vancomycin resistant enterococcus) culture positive Acute VRE (vancomycin-resistant Enterococci) Acute ~06/01/16
[2016-06-15] MEDS: MIRTAZAPINE 15 MG TAB PO SCH (22:40)
[2016-06-15] MEDS: ACETAMINOPHEN 325 MG TAB PO PRN (22:40)
[2016-06-15] MEDS ORDERED: LORazepam 1 MG TAB PO ONE (22:43)
[2016-06-15] MEDS ORDERED: INSULIN LISPRO 100 UNIT/ML SC ONE (23:00)
[2016-06-16] MEDS: methylPREDNISolone SOD SUCC 125 MG/2 ML VIAL IVP SCH ×4 (01:09→17:10)
[2016-06-16] MEDS: LEVALBUTEROL 1.25 MG/3 ML DEYVIAL IH SCH ×4 (06:01→20:56)
[2016-06-16] MEDS: TROLAMINE SALICYLATE 85 GM CRTUBE TP SCH ×4 (06:27→21:08)
[2016-06-16 06:30] LABS: PROTIME(PATIENT) 65.5 SEC (12.0-15.0)
[2016-06-16] MEDS: OXcarbazepine 300 MG TAB PO SCH ×2 (09:06→21:07)
[2016-06-16] MEDS: ATORVASTATIN CALCIUM 10 MG TAB PO SCH (09:06)
[2016-06-16] MEDS: metFORMIN HCL 500 MG TAB PO SCH ×2 (09:07→16:50)
[2016-06-16] MEDS: ASPIRIN EC 81 MG TAB PO SCH (09:07)
[2016-06-16] MEDS: LISINOPRIL 5 MG TAB PO SCH (09:07)
[2016-06-16] MEDS: CYANO/VITAMIN B12 1000 MCG TAB PO SCH (09:07)
[2016-06-16] MEDS: POTASSIUM CL 20 MEQ TAB PO SCH (09:07)
[2016-06-16] MEDS: INSULIN LISPRO 100 UNIT/ML SC SCH ×6 (09:08→18:13)
[2016-06-16] MEDS: OMEGA-3 FATTY ACIDS 1,000 MG CAP PO SCH (09:08)
[2016-06-16] MEDS: GABAPENTIN 100 MG CAP PO SCH ×3 (09:08→21:07)
[2016-06-16] MEDS: METOPROLOL SUCCINATE XR 25 MG TAB PO SCH (09:08)
[2016-06-16] MEDS: OXYMETAZOLINE 30 ML NASAL SPRAY EACHNARE SCH (09:15)
[2016-06-16] MEDS: glipiZIDE XL 5 MG TAB PO SCH (10:10)
[2016-06-16] MEDS: PETROLAT,WHT/MIN OIL/SOD CHL 3.5 GM OPHT.OINT OP SCH ×4 (10:11→21:07)
[2016-06-16] MEDS: INSULIN GLARGINE 100 UNITS/ML SYRINGE SC SCH (10:11)
[2016-06-16] MEDS: AZITHROMYCIN IV 500 MG in D5W 250 ML IV SCH (10:12)
[2016-06-16 15:32] LABS: INR 7.48 (0.83-1.16)
--- NOTE | 2016-06-16 15:36 | PCMIDPN ---
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 Chest x-ray improved after stopping daptomycin and with corticosteroid use. Now has completed 5 days of azithromycin for activity against atypicals in event findings due to atypical pneumonia. Will discontinue this today. Prolonged steroid taper can be required at times in the setting of daptomycin induced hypersensitivity pneumonitis and ultimate duration will be dictated by clinical course. * VRE bacteremia: Completed approximately 9 days of daptomycin post clearance of blood cultures. Repeat blood cultures are negative. No further antibiotic therapy intended. 06/16/16 15:33 Subjective: Patient notes breathing easier. Denies cough. Complains of back pain. Objective: Vital Signs Temp Pulse Resp BP Pulse Ox 36.5 C 107 H 24 H 143/84 H 94 06/16/16 07:50 06/16/16 11:20 06/16/16 11:20 06/16/16 07:50 06/16/16 11:20 Laboratory Results 06/13/16 06:30 06/13/16 06:30 06/15/16 06/16/16 06/17/16 05:59 05:59 05:59 Intake Total 2107 2150 Output Total 350 450 Balance 2107 1800 -450 Azithromycin # 5 Mycoplasma antibodies pending Chest x-ray with improved diffuse infiltrates Blood cultures x2 no growth - Physical Exam General Appearance: alert, no apparent distress, other (Repeatedly asks for coffee) EENT: pharynx normal, No scleral icterus Respiratory: other (Scattered wheezes and crackles bilaterally) Cardiac/Chest: tachycardia Abdomen: non-tender, No distended Skin: No rash ICD10 Worksheet Patient Problems: Problems Problem Status Onset Cellulitis Acute Pneumonia Acute Sepsis Acute Acute systolic CHF (congestive heart failure) Acute Aspiration pneumonia Acute CAD (coronary artery disease), [place] coronary artery Acute COPD exacerbation Acute Cellulitis of left thigh Acute Chronic Disease Mgmt/Transitional Care Acute Fever Acute HCAP (healthcare-associated pneumonia) Acute Hospital-acquired pneumonia Acute Ischemic cardiomyopathy Acute Leukocytosis Acute Pneumonia Acute Right lower lobe pneumonia Acute Sepsis Acute Septic shock Acute Severe sepsis Acute Severe sepsis without septic shock Acute Tachycardia Acute VRE (vancomycin resistant enterococcus) culture positive Acute VRE (vancomycin-resistant Enterococci) Acute ~06/01/16
--- NOTE | 2016-06-16 15:46 | PDPCPN ---
Palliative Care Progress Note Assessment/Plan: Referring provider: Dr Hanson Reason for consult: Complex medical decision making Symptom control HPI: Lexii Alejo is a 61 yo male with pMH COPD, TBI with seizures, recurrent asp PNA, CHF, PE, and DM admitted to the hospital for respiratory distress. This is his 4th admission this year latest admission for VRE bacteremia started on IV antibiotics. On admission resp distress thought to be 2/2 HCAP but more likely pneumonitis from IV antibiotics. ID and pulmonology involved. Palliative care consulted for complex medical decision making. Lexii stated while he hates the hospital, he would want to come back to the hospital if needed for future antibiotics. He has hopes to return back home but understands this is unlikely as he cannot walk. He is looking forward to returning to [facility] as he can smoke there and he enjoys watching tv. Spoke with Lseli over the phone who states the same as lexii. We discussed his oxygen requirements and risk of smoking if still on oxygen. She hopes his lungs will continue to improve and may not need oxygen in the future. Assessment: Physical: - Pain: none -tylenol PRN - Dyspnea: - fan as needed - oxygen as needed - no nebs and steroids Emotional/psychological: TBI: calm and pleasant - continue normal routines Advanced Care Planning: Is patient decisional?: Yes with help Code Status: DNR/DNI POA: Kayleigh is MDPOA. Plan: return to [facility] when medically ready. Lexii states he would want to come back to the hospital if needed for antibiotics. Subjective: I'm have some short breathing Objective: Social History: Common law [place]. Enjoys watching tv and smoking cigarettes Medication list reviewed ROS: General: fatigue, weakness ENT: negative Resp: dyspnea, cough GI: negative : negative MS: negative Skin: negative Neuro: negative Psych: negative Functional assessment: PPS: 40% Functional status: dependent on ADLs, IADLs Vital Signs Temp Pulse Resp BP Pulse Ox 36.5 C 107 H 24 H 143/84 H 94 06/16/16 07:50 06/16/16 11:20 06/16/16 11:20 06/16/16 07:50 06/16/16 11:20 Laboratory Results 06/13/16 06:30 06/13/16 06:30 06/15/16 06/16/16 06/17/16 05:59 05:59 05:59 Intake Total 2107 2150 Output Total 350 450 Balance 2106 1800 -450 PT 68.9 SEC (12.0-15.0) H 06/15/16 09:30 INR 7.96 (0.83-1.16) H* 06/15/16 09:30 Physical Exam - Physical Exam General Appearance: alert, no apparent distress Respiratory: No respiratory distress, No accessory muscle use Skin: normal color, warm/dry Extremities: No pedal edema Neuro/Psych: alert, oriented x 3 ICD10 Worksheet Patient Problems: Problems Problem Status Onset Cellulitis Acute Pneumonia Acute Sepsis Acute Acute systolic CHF (congestive heart failure) Acute Aspiration pneumonia Acute CAD (coronary artery disease), [place] coronary artery Acute COPD exacerbation Acute Cellulitis of left thigh Acute Chronic Disease Mgmt/Transitional Care Acute Fever Acute HCAP (healthcare-associated pneumonia) Acute Hospital-acquired pneumonia Acute Ischemic cardiomyopathy Acute Leukocytosis Acute Pneumonia Acute Right lower lobe pneumonia Acute Sepsis Acute Septic shock Acute Severe sepsis Acute Severe sepsis without septic shock Acute Tachycardia Acute VRE (vancomycin resistant enterococcus) culture positive Acute VRE (vancomycin-resistant Enterococci) Acute ~06/01/16
--- NOTE | 2016-06-16 15:46 | HOSPPROG ---
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 I think this may be related to atelectasis and immobility. Certainly at this point with his excessive INR is quite unlikely that he is developing PE. We are really unable to get this patient to mobilize even to sit into a chair, and this is largely I think a behavioral issue on his part. Sugars remained very poorly controlled largely due to steroids and dietary indiscretion. We are working hard to get the patient to curtail his diet that this is somewhat difficult. PLANS: -Continue current antibiotics and follow closely -continue steroid -continue to hold anticoagulation and follow daily INR -will need further increase insulin, follow sugars, attempt to enforce diet restrictions as able -Bronchodilators as needed -he does not want intubation so I have ordered no intubation, continue DNR order SUBJECTIVE: Admits to mild shortness of breath, denies chest pain and states he is not coughing much However he coughs during my visit with him nurses state he has been coughing frequently. Oxygen need up to 15 L Oxymizer today OBJECTIVE Vitals reviewed: Respirations still rapid as high as 24, current oxygen at 15 L Oxymizer No fever Exam: alert oriented interactions normally, relaxed skin warm dry color ok resps labored lungs lungs actually with better air movement today, better breath sounds with no wheeze or rhonchi or rales heart regular abd soft nondistended nontender, bowel sounds present limbs warm, no edema iv site ok Laboratory data: INR remains high 7.4 Sugars remain elevated with some fluctuation but often greater than 300 Objective: Vital Signs Temp Pulse Resp BP Pulse Ox 36.5 C 107 H 24 H 143/84 H 94 06/16/16 07:50 06/16/16 11:20 06/16/16 11:20 06/16/16 07:50 06/16/16 11:20 Laboratory Results 06/13/16 06:30 06/13/16 06:30 06/15/16 06/16/16 06/17/16 06:59 06:59 06:59 Intake Total 2107 2150 Output Total 350 450 Balance 2107 1800 -450 PT 65.5 SEC (12.0-15.0) H 06/16/16 06:10 INR 7.48 (0.83-1.16) H* 06/16/16 06:10 ICD10 Worksheet Patient Problems: Problems Problem Status Onset Cellulitis Acute Pneumonia Acute Sepsis Acute Acute systolic CHF (congestive heart failure) Acute Aspiration pneumonia Acute CAD (coronary artery disease), [place] coronary artery Acute COPD exacerbation Acute Cellulitis of left thigh Acute Chronic Disease Mgmt/Transitional Care Acute Fever Acute HCAP (healthcare-associated pneumonia) Acute Hospital-acquired pneumonia Acute Ischemic cardiomyopathy Acute Leukocytosis Acute Pneumonia Acute Right lower lobe pneumonia Acute Sepsis Acute Septic shock Acute Severe sepsis Acute Severe sepsis without septic shock Acute Tachycardia Acute VRE (vancomycin resistant enterococcus) culture positive Acute VRE (vancomycin-resistant Enterococci) Acute ~06/01/16
[2016-06-16] MEDS: MIRTAZAPINE 15 MG TAB PO SCH (21:07)
[2016-06-17] MEDS: methylPREDNISolone SOD SUCC 125 MG/2 ML VIAL IVP SCH ×4 (00:12→18:06)
[2016-06-17] MEDS: LEVALBUTEROL 1.25 MG/3 ML DEYVIAL IH SCH ×4 (06:11→21:55)
[2016-06-17] MEDS: TROLAMINE SALICYLATE 85 GM CRTUBE TP SCH ×4 (06:18→21:36)
[2016-06-17 07:07] LABS: INR 2.97 (0.83-1.16); PROTIME(PATIENT) 31.3 SEC (12.0-15.0)
[2016-06-17] MEDS ORDERED: ERGOCALCIFEROL 50,000 I.UNIT CAP PO SCH (08:00)
[2016-06-17] MEDS: INSULIN LISPRO 100 UNIT/ML SC SCH ×6 (08:18→18:06)
[2016-06-17] MEDS: ATORVASTATIN CALCIUM 10 MG TAB PO SCH (08:18)
[2016-06-17] MEDS: metFORMIN HCL 500 MG TAB PO SCH ×2 (08:18→18:06)
[2016-06-17] MEDS: ASPIRIN EC 81 MG TAB PO SCH (08:18)
[2016-06-17] MEDS: OMEGA-3 FATTY ACIDS 1,000 MG CAP PO SCH (08:18)
[2016-06-17] MEDS: INSULIN GLARGINE 100 UNITS/ML SYRINGE SC SCH (08:18)
[2016-06-17] MEDS: glipiZIDE XL 5 MG TAB PO SCH (08:19)
[2016-06-17] MEDS: METOPROLOL SUCCINATE XR 25 MG TAB PO SCH (08:19)
[2016-06-17] MEDS: POTASSIUM CL 20 MEQ TAB PO SCH (08:19)
[2016-06-17] MEDS: CYANO/VITAMIN B12 1000 MCG TAB PO SCH (08:19)
[2016-06-17] MEDS: LISINOPRIL 5 MG TAB PO SCH (08:19)
[2016-06-17] MEDS: GABAPENTIN 100 MG CAP PO SCH ×3 (08:19→21:34)
[2016-06-17] MEDS: OXcarbazepine 300 MG TAB PO SCH (08:20)
[2016-06-17] MEDS: OXYMETAZOLINE 30 ML NASAL SPRAY EACHNARE SCH (08:23)
[2016-06-17] MEDS: PETROLAT,WHT/MIN OIL/SOD CHL 3.5 GM OPHT.OINT OP SCH ×3 (08:23→21:36)
--- NOTE | 2016-06-17 09:34 | PCMIDPN ---
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 CT scan done on Wednesday shows bilateral patches of ground-glass interstitial and alveolar infiltrates. O2 needs seem to be improving however. O2 sats staty in the mid to upper 90s on 10L. Plan: 1. Continue to observe off daptomycin. 2. Follow clinical course and oxygen needs. 3. Continue steroids. 06/17/16 22:05 Subjective: Patient at his baseline. Calling out for coffee. No new complaints. Agrees that his breathing is easier. Objective: no antibiotics. Vital Signs Temp Pulse Resp BP Pulse Ox 36.2 C 76 18 150/82 H 100 06/17/16 08:00 06/17/16 08:19 06/17/16 08:00 06/17/16 08:19 06/17/16 08:00 Laboratory Results 06/13/16 06:30 06/13/16 06:30 06/16/16 06/17/16 06/18/16 05:59 05:59 05:59 Intake Total 2150 3500 Output Total 350 1350 Balance 1800 2150 - Physical Exam General Appearance: WD/WN, alert, no apparent distress, non-toxic Respiratory: lungs clear, normal breath sounds, No respiratory distress Cardiac/Chest: regular rate, rhythm, No tachycardia Extremities: non-tender, normal inspection Skin: normal color, warm/dry, No rash Neuro/Psych: alert, normal mood/affect, oriented x 3 ICD10 Worksheet Patient Problems: Problems Problem Status Onset Cellulitis Acute Pneumonia Acute Sepsis Acute Acute systolic CHF (congestive heart failure) Acute Aspiration pneumonia Acute CAD (coronary artery disease), [place] coronary artery Acute COPD exacerbation Acute Cellulitis of left thigh Acute Chronic Disease Mgmt/Transitional Care Acute Fever Acute HCAP (healthcare-associated pneumonia) Acute Hospital-acquired pneumonia Acute Ischemic cardiomyopathy Acute Leukocytosis Acute Pneumonia Acute Right lower lobe pneumonia Acute Sepsis Acute Septic shock Acute Severe sepsis Acute Severe sepsis without septic shock Acute Tachycardia Acute VRE (vancomycin resistant enterococcus) culture positive Acute VRE (vancomycin-resistant Enterococci) Acute ~06/01/16
--- NOTE | 2016-06-17 12:24 | HOSPPROG ---
Hospitalist Progress Note Assessment/Plan: DIAGNOSES: -Acute hypoxemic respiratory failure likely due to drug-induced pneumonitis from daptomycin -Acute encephalopathy, resolved / Chronic disability due to traumatic brain injury history -Recent vancomycin resistant Enterococcus PICC line infection, was still on antibiotic at arrival here at this time -Excessive anticoagulation likely due to combination of antibiotics and Coumadin / history of DVT and PE on chronic anticoagulation INR now 2.93 -Diabetes mellitus type 2 - currently uncontrolled due to steroids and extremely poor diet compliance PLANS: - continue azithromycin which should stop today -continue steroids -continue to hold anticoagulation and plan to resume warfarin tomorrow -will need further increase insulin, follow sugars, attempt to enforce diet restrictions as able -Bronchodilators as needed -he does not want intubation so I have ordered no intubation, continue DNR order Subjective: improving work of breathing. Denies fevers or chills Objective: Vital Signs Temp Pulse Resp BP Pulse Ox 36.2 C 83 18 150/82 H 95 06/17/16 08:00 06/17/16 11:52 06/17/16 11:52 06/17/16 08:19 06/17/16 11:52 Laboratory Results 06/13/16 06:30 06/13/16 06:30 06/16/16 06/17/16 06/18/16 05:59 05:59 05:59 Intake Total 2150 3500 Output Total 350 1350 Balance 1800 2150 PT 31.3 SEC (12.0-15.0) H D 06/17/16 06:20 INR 2.97 (0.83-1.16) H 06/17/16 06:20 - Physical Exam Constitutional: chronically ill appearing Cardiovascular: regular rate and rhythym, no murmur, rub, or gallop Respiratory: no respiratory distress, reduced air movement, inspiratory crackles , No rhonchi Gastrointestinal: normoactive bowel sounds, soft, non-tender abdomen, no palpable masses, No guarding, No rebound ICD10 Worksheet Patient Problems: Problems Problem Status Onset Pneumonia Acute Sepsis Acute VRE (vancomycin-resistant Enterococci) Acute ~06/01/16 Chronic Disease Mgmt/Transitional Care Acute HCAP (healthcare-associated pneumonia) Acute Ischemic cardiomyopathy Acute Acute systolic CHF (congestive heart failure) Acute CAD (coronary artery disease), [place] coronary artery Acute Leukocytosis Acute Aspiration pneumonia Acute Fever Acute Right lower lobe pneumonia Acute Sepsis Acute Severe sepsis without septic shock Acute Hospital-acquired pneumonia Acute COPD exacerbation Acute Severe sepsis Acute Tachycardia Acute Pneumonia Acute Cellulitis of left thigh Acute Septic shock Acute Cellulitis Acute VRE (vancomycin resistant enterococcus) culture positive Acute
[2016-06-17] MEDS ORDERED: INSULIN GLARGINE 100 UNITS/ML SYRINGE SC SCH (12:25)
[2016-06-17 14:45] LABS: MYCOPLASMA PNUEMONIAE IGM 0.38 index (<=0.90)
[2016-06-17] MEDS: MIRTAZAPINE 15 MG TAB PO SCH (21:34)
[2016-06-18] MEDS: OXcarbazepine 300 MG TAB PO SCH ×3 (00:06→21:17)
[2016-06-18] MEDS: methylPREDNISolone SOD SUCC 125 MG/2 ML VIAL IVP SCH ×2 (00:06→05:53)
[2016-06-18] MEDS: ZOLPIDEM TARTRATE 5 MG TAB PO PRN ×2 (00:07→23:06)
[2016-06-18] MEDS: LEVALBUTEROL 1.25 MG/3 ML DEYVIAL IH SCH ×3 (04:37→17:07)
[2016-06-18 04:45] LABS: INR 1.32 (0.83-1.16); PROTIME(PATIENT) 16.4 SEC (12.0-15.0)
[2016-06-18] MEDS: TROLAMINE SALICYLATE 85 GM CRTUBE TP SCH ×4 (05:54→21:20)
[2016-06-18] MEDS: ATORVASTATIN CALCIUM 10 MG TAB PO SCH (08:25)
[2016-06-18] MEDS: OMEGA-3 FATTY ACIDS 1,000 MG CAP PO SCH (08:25)
[2016-06-18] MEDS: GABAPENTIN 100 MG CAP PO SCH ×3 (08:25→21:17)
[2016-06-18] MEDS: metFORMIN HCL 500 MG TAB PO SCH ×2 (08:25→18:25)
[2016-06-18] MEDS: POTASSIUM CL 20 MEQ TAB PO SCH (08:25)
[2016-06-18] MEDS: CYANO/VITAMIN B12 1000 MCG TAB PO SCH (08:25)
[2016-06-18] MEDS: LISINOPRIL 5 MG TAB PO SCH (08:26)
[2016-06-18] MEDS: INSULIN LISPRO 100 UNIT/ML SC SCH ×6 (08:27→18:25)
[2016-06-18] MEDS: PETROLAT,WHT/MIN OIL/SOD CHL 3.5 GM OPHT.OINT OP SCH ×3 (08:32→21:23)
[2016-06-18] MEDS: OXYMETAZOLINE 30 ML NASAL SPRAY EACHNARE SCH (08:32)
--- NOTE | 2016-06-18 09:34 | HOSPPROG ---
Hospitalist Progress Note Assessment/Plan: DIAGNOSES: -Acute hypoxemic respiratory failure likely due to drug-induced pneumonitis from daptomycin (improving) -Acute encephalopathy, resolved / Chronic disability due to traumatic brain injury history -Recent vancomycin resistant Enterococcus PICC line infection (off antibiotics) -Excessive anticoagulation likely due to combination of antibiotics and Coumadin / history of DVT and PE on chronic anticoagulation INR now subtherapeutic -Diabetes mellitus type 2 - currently uncontrolled due to steroids and extremely poor diet compliance PLANS: -transition solumedrol to prednisone and plan on tapering over the next couple of weeks -resume warfarin -cont current insulin regime +metformin + GARCIA -Bronchodilators as needed -he does not want intubation so I have ordered no intubation, continue DNR order dispo: possible dc next few days as resp status improves and stable on po steroids Subjective: improved shortness of breath. denies fevers or chills. wants breakfast Objective: Vital Signs Temp Pulse Resp BP Pulse Ox 36.7 C 73 18 149/93 H 96 06/18/16 07:54 06/18/16 07:54 06/18/16 07:54 06/18/16 07:54 06/18/16 07:54 Laboratory Results 06/13/16 06:30 06/13/16 06:30 06/17/16 06/18/16 06/19/16 05:59 05:59 05:59 Intake Total 3500 2390 Output Total 1350 2750 Balance 2150 -360 PT 16.4 SEC (12.0-15.0) H D 06/18/16 04:15 INR 1.32 (0.83-1.16) H 06/18/16 04:15 - Physical Exam Constitutional: no apparent distress, appears nourished, not in pain Cardiovascular: regular rate and rhythym, no murmur, rub, or gallop Respiratory: no respiratory distress, no rales or rhonchi, clear to auscultation , No rhonchi Gastrointestinal: normoactive bowel sounds, soft, non-tender abdomen, no palpable masses, No guarding, No rebound ICD10 Worksheet Patient Problems: Problems Problem Status Onset Pneumonia Acute Sepsis Acute VRE (vancomycin-resistant Enterococci) Acute ~06/01/16 Chronic Disease Mgmt/Transitional Care Acute HCAP (healthcare-associated pneumonia) Acute Ischemic cardiomyopathy Acute Acute systolic CHF (congestive heart failure) Acute CAD (coronary artery disease), [place] coronary artery Acute Leukocytosis Acute Aspiration pneumonia Acute Fever Acute Right lower lobe pneumonia Acute Sepsis Acute Severe sepsis without septic shock Acute Hospital-acquired pneumonia Acute COPD exacerbation Acute Severe sepsis Acute Tachycardia Acute Pneumonia Acute Cellulitis of left thigh Acute Septic shock Acute Cellulitis Acute VRE (vancomycin resistant enterococcus) culture positive Acute
[2016-06-18] MEDS: ASPIRIN EC 81 MG TAB PO SCH (09:35)
[2016-06-18] MEDS: METOPROLOL SUCCINATE XR 25 MG TAB PO SCH (14:14)
[2016-06-18] MEDS: predniSONE 20 MG TAB PO SCH (14:14)
[2016-06-18] MEDS: glipiZIDE XL 5 MG TAB PO SCH (15:38)
[2016-06-18] MEDS: ACETAMINOPHEN 325 MG TAB PO PRN (15:38)
[2016-06-18] MEDS ORDERED: WARFARIN SODIUM 5 MG TAB PO SCH (16:00)
[2016-06-18] MEDS ORDERED: WARFARIN SODIUM 4 MG TAB PO SCH (16:00)
[2016-06-18] MEDS: MIRTAZAPINE 15 MG TAB PO SCH (21:17)
[2016-06-19] MEDS: TROLAMINE SALICYLATE 85 GM CRTUBE TP SCH (04:45)
[2016-06-19 04:57] LABS: INR 1.06 (0.83-1.16); PROTIME(PATIENT) 13.7 SEC (12.0-15.0)
[2016-06-19] MEDS: LEVALBUTEROL 1.25 MG/3 ML DEYVIAL IH SCH ×3 (05:58→10:41)
[2016-06-19 07:30] VITALS: BP 132/73; TEMP 98.8
[2016-06-19] MEDS: LISINOPRIL 5 MG TAB PO SCH (08:11)
[2016-06-19] MEDS: predniSONE 20 MG TAB PO SCH (08:11)
[2016-06-19] MEDS: GABAPENTIN 100 MG CAP PO SCH (08:11)
[2016-06-19] MEDS: metFORMIN HCL 500 MG TAB PO SCH (08:12)
[2016-06-19] MEDS: OXcarbazepine 300 MG TAB PO SCH (08:12)
[2016-06-19] MEDS: OMEGA-3 FATTY ACIDS 1,000 MG CAP PO SCH (08:15)
[2016-06-19] MEDS: ATORVASTATIN CALCIUM 10 MG TAB PO SCH (08:15)
[2016-06-19] MEDS: METOPROLOL SUCCINATE XR 25 MG TAB PO SCH (08:15)
[2016-06-19] MEDS: ASPIRIN EC 81 MG TAB PO SCH (08:16)
[2016-06-19] MEDS: CYANO/VITAMIN B12 1000 MCG TAB PO SCH (08:16)
[2016-06-19] MEDS: POTASSIUM CL 20 MEQ TAB PO SCH (08:16)
[2016-06-19] MEDS: glipiZIDE XL 5 MG TAB PO SCH (08:16)
[2016-06-19] MEDS: INSULIN LISPRO 100 UNIT/ML SC SCH ×2 (08:22)
[2016-06-19] MEDS: PETROLAT,WHT/MIN OIL/SOD CHL 3.5 GM OPHT.OINT OP SCH (08:23)
[2016-06-19] MEDS: OXYMETAZOLINE 30 ML NASAL SPRAY EACHNARE SCH (08:23)
--- NOTE | 2016-06-19 09:32 | PDIAF ---
- Diagnosis Diagnosis: drug induced pneumonitis Code Status: Do Not Resuscitate - Medication Management Discharge Medications: Medications to Continue on Transfer Acetaminophen [Tylenol 325mg (*)] 650 mg PO Q6 PRN 11/25/14 [Last Taken 05/23/16 ] Aspirin EC [Aspirin EC 81 mg (*)] 81 mg PO DAILY #30 tab 12/07/14 [Last Taken ] Metoprolol Succinate Xr [Toprol Xl 25 mg (*)] 25 mg PO DAILY 01/08/15 [Last Taken 05/22/16] glipiZIDE XL [Glucotrol Xl] 5 mg PO DAILY 01/08/15 [Last Taken 05/22/16] OXcarbazepine [Trileptal 300mg (*)] 600 mg PO BID #0 tab 01/20/15 [Last Taken ] Cyanocobalamin [Vitamin B12 (*)] 1,000 mcg PO DAILY 01/21/15 [Last Taken ] Potassium Cl [Klor-Con 20 meq (*)] 20 meq PO DAILY 03/05/15 [Last Taken 05/22/16 ] Mirtazapine [Remeron] 15 mg PO HS 04/13/15 [Last Taken 05/22/16] Ergocalciferol [Vitamin D2 (*)] 50,000 unit PO Q30D 05/07/16 [Last Taken ] Insulin Detemir [Levemir] 14 unit SQ DAILY 05/07/16 [Last Taken 05/22/16] Lisinopril [Zestril 5 mg (*)] 5 mg PO DAILY 05/07/16 [Last Taken 05/22/16] Mineral Oil/Petrolatum,White [Artificial Tears Eye Ointment] 1 yanick OP TID [Last Taken 05/22/16] Oxymetazoline HCl [Afrin] 1 spray EACHNARE DAILY 05/07/16 [Last Taken 05/22/16] Psyllium Seed (with Dextrose) [Fiber Powder] 397 gm PO DAILY PRN 05/07/16 [Last Taken 05/22/16] Trolamine Salicylate [Aspercreme] 1 yanick TP QID 05/07/16 [Last Taken 05/22/16] Enoxaparin [Lovenox 100 MG (*)] 100 mg SC BID #0 syr 06/06/16 [Last Taken Unknown] Atorvastatin Calcium [Lipitor 10 mg (*)] 10 mg PO DAILY 06/11/16 [Last Taken Unknown] Gabapentin [Neurontin 100 MG (*)] 200 mg PO TID 06/11/16 [Last Taken Unknown] Herbals/Supplements -Info Only 1 ea PO DAILY 06/11/16 [Last Taken Unknown] Magnesium Hydroxide [Milk of Magnesia] 30 ml PO DAILY PRN 06/11/16 [Last Taken Unknown] [place]-3 Fatty Acids [Fish Oil 1000 mg (*)] 1,000 mg PO DAILY 06/11/16 [Last Taken Unknown] Sennosides/Docusate Sodium [Senokot-S] 1 tab PO BID PRN 06/11/16 [Last Taken Unknown] Warfarin Sodium [Coumadin 2MG (*)] 14 mg PO DAILY16 06/11/16 [Last Taken Unknown ] metFORMIN HCL [Glucophage 500 mg (*)] 500 mg PO BIDMEAL 06/11/16 [Last Taken Unknown] Acetaminophen [Tylenol 325mg (*)] 650 mg PO Q4HRS PRN #0 tab 06/19/16 [Last Taken Unknown] Albuterol [Proventil Neb] 3 ml IH QID PRN #0 deyvial 06/19/16 [Last Taken Unknown] predniSONE 40 mg PO DAILY #0 tablet 06/19/16 [Last Taken Unknown] Discharge Medications: Refer to the Discharge Home Medication list for PRN reason. - Orders Diet Recommendation: no restrictions on diet Diet Texture: Regular Texture Diet - Labs/Radiology PT/INR Date: 06/22/16 - Follow Up Care Current Providers and Referrals: Patient,NotPresent [Unknown] - As per Instructions
[2016-06-19 10:50] VITALS: PULSE 80; RESP 22; O2SAT 92
[2016-06-19] MEDS ORDERED: INSULIN GLARGINE 100 UNITS/ML SYRINGE SC SCH (15:00)
--- NOTE | 2016-06-19 16:07 | GDS ---
[f rep st] DISCHARGE SUMMARY DISCHARGE DIAGNOSES: 1. Acute hypoxemic respiratory failure, thought to be due to a drug-induced pneumonitis from daptom ycin. 2. Resolved acute encephalopathy. 3. Recent vancomycin resistant Enterococcus, PICC line infection, now off antibiotics. 4. Excessive anticoagulation. 5. History of type 2 diabetes mellitus. CONSULTANTS: Dr. Bhupendra Carty, Infectious Disease. Dr. Flores, Pulmonary Critical Care. HOSPITAL COURSE AND STAY BY PROBLEM: 1. Acute respiratory failure due to drug-induced pneumonitis: The patient was admitted to the hosp [facility] where initially they thought that he may have an acute bacterial pneumonia, but this was later thought to be less likely. The patient finished a 5-day course of azithromycin. His pneumonitis wa s treated with IV steroids, and his respiratory status has continued to improve. 2. 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 His INR peaked at 8.14 on 06/15/2016. On discharge the patient will be disch arged on Lovenox, and can be considered continued on his usual home dose of Coumadin, but his INR wi ll need to be carefully monitored. PHYSICAL EXAM: VITAL SIGNS: On day of discharge blood pressure 132/73, pulse of 80, respiratory ra te of 22, O2 saturation 92% on 3 L. GENERAL: In no acute distress. PROCEDURES: Done this hospital stay, none. DISCHARGE MEDICATIONS: Please refer to discharge medication reconciliation. DISCHARGE INSTRUCTIONS: The patient will be discharged back to [facility], where he should have his INR checked on Wednesday. Once again, he will need to be on Lovenox until his INR is therapeutic. He should also be tapered off prednisone as directed. /[id number]/MODL
== END 2016-06-19 11:16 | DRG 196 ==
LOC: EDUNIT# → F3E 06-12 00:25 → F2N 06-13 00:15 → F1N 06-15 14:45 → F3E 06-17 16:46
PROVIDERS: ADMIT Internal Medicine; ATTEND Family Medicine
DX: J84.89 Other specified interstitial pulmonary diseases (principal); T36.8X5A Adverse effect of other systemic antibiotics, initial encounter; J44.1 Chronic obstructive pulmonary disease with (acute) exacerbation; J96.21 Acute and chronic respiratory failure with hypoxia; G93.40 Encephalopathy, unspecified; I50.32 Chronic diastolic (congestive) heart failure; G40.909 Epilepsy, unspecified, not intractable, without status epilepticus; S09.90XS Unspecified injury of head, sequela; G81.94 Hemiplegia, unspecified affecting left nondominant side; G83.11 Monoplegia of lower limb affecting right dominant side; I11.0 Hypertensive heart disease with heart failure; I25.10 Atherosclerotic heart disease of native coronary artery without angina pectoris; I25.5 Ischemic cardiomyopathy; E11.9 Type 2 diabetes mellitus without complications; E78.5 Hyperlipidemia, unspecified; Z79.01 Long term (current) use of anticoagulants; F17.210 Nicotine dependence, cigarettes, uncomplicated; Z86.718 Personal history of other venous thrombosis and embolism; Z86.711 Personal history of pulmonary embolism; Z87.820 Personal history of traumatic brain injury; Z66 Do not resuscitate; Z16.21 Resistance to vancomycin; Z95.5 Presence of coronary angioplasty implant and graft
CPT/HCPCS: 86738-90; 87449-90; 96365; J0456; J0878; J1335; J1650; J1815; J3370

== ENCOUNTER → 2017-05-10 | Outpatient (CLI) | payer OTHER, MEDICAID ==
[~2017-05-10] MED LIST: IOPAMIDOL (ISOVUE-300) 100 ML BTL ONE
== END ==
LOC: FIMAGING 13:50
PROVIDERS: ATTEND Family Medicine
DX: J98.09 Other diseases of bronchus, not elsewhere classified (principal); J96.11 Chronic respiratory failure with hypoxia; J44.9 Chronic obstructive pulmonary disease, unspecified; F17.200 Nicotine dependence, unspecified, uncomplicated
CPT/HCPCS: Q9967